=== PATIENT | female | born 1950 | race African-American/Black ===

== ENCOUNTER 2016-10-06 21:22 | Inpatient (IN) | payer MEDICARE ==
[~2016-10-06] VITALS: Ht 163.8 cm; Wt 54.4 kg
[2016-10-06 20:00] VITALS: BP 167/94
[2016-10-06] MEDS ORDERED: IPRATROPIUM/ALBUTEROL 0.5-3(2.5)MG/3ML NEB HHN PRN (21:45)
[2016-10-06] MEDS ORDERED: DEXTROSE 50% WATER 50ML SYRINGE IV PRN (21:45)
[2016-10-06] MEDS ORDERED: ONDANSETRON HCL 4MG/2ML VIAL IV PRN (21:45)
[2016-10-06] MEDS ORDERED: MAGNESIUM/ALUMINUM HYDROXIDE/SIMETHICONE 30ML UDC PO PRN (21:45)
[2016-10-06] MEDS: ATORVASTATIN CALCIUM 40MG TABLET PO SCH (21:57)
[2016-10-06] MEDS: BLOOD SUGAR DIAGNOSTIC STRIP TEST SCH (21:57)
[2016-10-06 22:00] VITALS: BP 167/94
[2016-10-06] MEDS: CLONIDINE 0.1MG TABLET PO PRN (22:38)
[2016-10-06] MEDS: INSULIN LISPRO 100 UNITS/ML SUBCUT SCH (22:50)
[2016-10-06] MEDS: INSULIN DETEMIR UD 100 UNITS/ML SYR SUBCUT SCH (22:51)
[2016-10-07] MEDS: BLOOD SUGAR DIAGNOSTIC STRIP TEST SCH ×4 (05:55→20:38)
[2016-10-07] MEDS: INSULIN LISPRO 100 UNITS/ML SUBCUT SCH ×4 (05:55→21:12)
[2016-10-07 06:10] LABS: BASOPHILS % 0.7 % (0.0-2.0); EOSINOPHILS % 1.2 % (0.0-5.0); HEMATOCRIT. 33.1 % (36.0-48.0); LYMPHOCYTES % 26.9 % (20.0-50.0); MEAN CORPUSCULAR HEMOGLOBIN 32.2 pg (28.0-32.0); MEAN CORPUSCULAR VOLUME 96.6 fL (81.0-99.0); MONOCYTES % 7.7 % (2.0-8.0); NEUTROPHILS % 63.5 % (40.0-76.0); PLATELET 356 x1000/uL (130-400); RED BLOOD CELL COUNT 3.42 mill/uL (4.2-5.4); RED CELL DISTRIBUTION WIDTH 13.8 % (11.6-14.6)
[2016-10-07 06:41] LABS: CARBON DIOXIDE 29 mEq/L (21-32); CHLORIDE 107 mEq/L (98-107)
[2016-10-07 08:00] VITALS: BP 115/68
[2016-10-07] MEDS: LOSARTAN POTASSIUM 50 MG TABLET PO SCH (08:04)
[2016-10-07] MEDS: CLOPIDOGREL 75MG TABLET PO SCH (08:04)
[2016-10-07] MEDS: ENOXAPARIN 40MG/0.4ML SYR SUBCUT SCH (08:05)
[2016-10-07] MEDS: ACETAMINOPHEN 325MG TABLET PO PRN (08:05)
[2016-10-07] MEDS: INSULIN DETEMIR UD 100 UNITS/ML SYR SUBCUT SCH ×2 (12:00→21:13)
[2016-10-07] MEDS: DOCUSATE SODIUM 100MG CAPSULE PO SCH (17:00)
[2016-10-07 20:00] VITALS: BP 127/93
[2016-10-07] MEDS: ATORVASTATIN CALCIUM 40MG TABLET PO SCH (20:37)
[2016-10-08] MEDS: ACETAMINOPHEN 325MG TABLET PO PRN (03:54)
[2016-10-08] MEDS: INSULIN LISPRO 100 UNITS/ML SUBCUT SCH ×4 (05:50→21:53)
[2016-10-08] MEDS: BLOOD SUGAR DIAGNOSTIC STRIP TEST SCH ×4 (05:50→21:32)
[2016-10-08 08:00] VITALS: BP 161/82
[2016-10-08] MEDS: DOCUSATE SODIUM 100MG CAPSULE PO SCH ×2 (08:05→16:30)
[2016-10-08] MEDS: CLOPIDOGREL 75MG TABLET PO SCH (08:05)
[2016-10-08] MEDS: LOSARTAN POTASSIUM 50 MG TABLET PO SCH (08:05)
[2016-10-08] MEDS: ENOXAPARIN 40MG/0.4ML SYR SUBCUT SCH (08:05)
[2016-10-08] MEDS: CLONIDINE 0.1MG TABLET PO PRN (11:28)
[2016-10-08] MEDS: INSULIN DETEMIR UD 100 UNITS/ML SYR SUBCUT SCH ×2 (11:35→21:54)
[2016-10-08 13:30] VITALS: BP 133/79
[2016-10-08 20:48] VITALS: BP 116/66
[2016-10-08] MEDS: ATORVASTATIN CALCIUM 40MG TABLET PO SCH (21:46)
[2016-10-09] MEDS: BLOOD SUGAR DIAGNOSTIC STRIP TEST SCH ×4 (06:16→21:00)
[2016-10-09] MEDS: INSULIN LISPRO 100 UNITS/ML SUBCUT SCH ×4 (06:16→21:00)
[2016-10-09 08:00] VITALS: BP 127/69
[2016-10-09] MEDS: CLOPIDOGREL 75MG TABLET PO SCH (09:09)
[2016-10-09] MEDS: LOSARTAN POTASSIUM 50 MG TABLET PO SCH (09:10)
[2016-10-09] MEDS: ENOXAPARIN 40MG/0.4ML SYR SUBCUT SCH (09:10)
[2016-10-09] MEDS: DOCUSATE SODIUM 100MG CAPSULE PO SCH ×2 (09:10→16:16)
[2016-10-09] MEDS: INSULIN DETEMIR UD 100 UNITS/ML SYR SUBCUT SCH ×2 (10:54→22:46)
[2016-10-09 20:00] VITALS: BP 137/75
[2016-10-09] MEDS: ATORVASTATIN CALCIUM 40MG TABLET PO SCH (22:38)
[2016-10-09] MEDS: ACETAMINOPHEN 325MG TABLET PO PRN (22:39)
[2016-10-10] VITALS: BP 128/72
[2016-10-10] MEDS: ACETAMINOPHEN 325MG TABLET PO PRN (06:05)
[2016-10-10] MEDS: BLOOD SUGAR DIAGNOSTIC STRIP TEST SCH ×4 (07:20→21:13)
[2016-10-10 08:00] VITALS: BP 127/83
[2016-10-10] MEDS: ENOXAPARIN 40MG/0.4ML SYR SUBCUT SCH (08:16)
[2016-10-10] MEDS: DOCUSATE SODIUM 100MG CAPSULE PO SCH ×2 (08:16→16:20)
[2016-10-10] MEDS: LOSARTAN POTASSIUM 50 MG TABLET PO SCH (08:16)
[2016-10-10] MEDS: CLOPIDOGREL 75MG TABLET PO SCH (08:16)
[2016-10-10] MEDS: INSULIN LISPRO 100 UNITS/ML SUBCUT SCH ×4 (08:19→21:16)
[2016-10-10] MEDS: INSULIN DETEMIR UD 100 UNITS/ML SYR SUBCUT SCH ×2 (10:19→21:16)
[2016-10-10 20:00] VITALS: BP 148/83
[2016-10-10] MEDS: ATORVASTATIN CALCIUM 40MG TABLET PO SCH (21:13)
[2016-10-11] MEDS: BLOOD SUGAR DIAGNOSTIC STRIP TEST SCH ×4 (06:21→21:36)
[2016-10-11] MEDS: INSULIN LISPRO 100 UNITS/ML SUBCUT SCH ×4 (07:01→21:39)
[2016-10-11 08:00] VITALS: BP 135/87
[2016-10-11] MEDS: LOSARTAN POTASSIUM 50 MG TABLET PO SCH (09:19)
[2016-10-11] MEDS: ENOXAPARIN 40MG/0.4ML SYR SUBCUT SCH (09:19)
[2016-10-11] MEDS: CLOPIDOGREL 75MG TABLET PO SCH (09:19)
[2016-10-11] MEDS: DOCUSATE SODIUM 100MG CAPSULE PO SCH ×2 (09:19→16:49)
[2016-10-11] MEDS: INSULIN DETEMIR UD 100 UNITS/ML SYR SUBCUT SCH ×2 (11:12→21:39)
[2016-10-11 20:00] VITALS: BP 134/84
[2016-10-11] MEDS: ATORVASTATIN CALCIUM 40MG TABLET PO SCH (21:37)
[2016-10-12] MEDS: BLOOD SUGAR DIAGNOSTIC STRIP TEST SCH ×4 (06:27→21:01)
[2016-10-12] MEDS: INSULIN LISPRO 100 UNITS/ML SUBCUT SCH ×4 (06:48→21:33)
[2016-10-12 08:00] VITALS: BP 135/82
[2016-10-12] MEDS: ENOXAPARIN 40MG/0.4ML SYR SUBCUT SCH (09:06)
[2016-10-12] MEDS: LOSARTAN POTASSIUM 50 MG TABLET PO SCH (09:06)
[2016-10-12] MEDS: DOCUSATE SODIUM 100MG CAPSULE PO SCH ×2 (09:06→17:38)
[2016-10-12] MEDS: CLOPIDOGREL 75MG TABLET PO SCH (09:06)
[2016-10-12] MEDS: INSULIN DETEMIR UD 100 UNITS/ML SYR SUBCUT SCH ×2 (10:59→21:32)
[2016-10-12] MEDS: ACETAMINOPHEN 325MG TABLET PO PRN (18:50)
[2016-10-12 20:00] VITALS: BP 116/66
[2016-10-12] MEDS: ATORVASTATIN CALCIUM 40MG TABLET PO SCH (21:01)
[2016-10-13] MEDS: INSULIN LISPRO 100 UNITS/ML SUBCUT SCH ×4 (06:26→21:25)
[2016-10-13] MEDS: BLOOD SUGAR DIAGNOSTIC STRIP TEST SCH ×4 (06:26→21:22)
[2016-10-13 08:00] VITALS: BP 137/73
[2016-10-13] MEDS: LOSARTAN POTASSIUM 50 MG TABLET PO SCH (09:15)
[2016-10-13] MEDS: DOCUSATE SODIUM 100MG CAPSULE PO SCH ×2 (09:15→17:10)
[2016-10-13] MEDS: ENOXAPARIN 40MG/0.4ML SYR SUBCUT SCH (09:16)
[2016-10-13] MEDS: CLOPIDOGREL 75MG TABLET PO SCH (09:16)
[2016-10-13] MEDS: INSULIN DETEMIR UD 100 UNITS/ML SYR SUBCUT SCH ×2 (09:22→21:25)
[2016-10-13 20:00] VITALS: BP 127/72
[2016-10-13] MEDS: ATORVASTATIN CALCIUM 40MG TABLET PO SCH (21:23)
[2016-10-14] MEDS: BLOOD SUGAR DIAGNOSTIC STRIP TEST SCH ×4 (06:22→21:27)
[2016-10-14] MEDS: INSULIN LISPRO 100 UNITS/ML SUBCUT SCH ×4 (07:15→21:28)
[2016-10-14 08:00] VITALS: BP_SYST 102; BP_SYST 150; BP_DIAS 60; BP_DIAS 91
[2016-10-14] MEDS: LOSARTAN POTASSIUM 50 MG TABLET PO SCH (08:28)
[2016-10-14] MEDS: DOCUSATE SODIUM 100MG CAPSULE PO SCH ×2 (08:28→17:03)
[2016-10-14] MEDS: CLOPIDOGREL 75MG TABLET PO SCH (08:28)
[2016-10-14] MEDS: ENOXAPARIN 40MG/0.4ML SYR SUBCUT SCH (08:28)
[2016-10-14] MEDS: INSULIN DETEMIR UD 100 UNITS/ML SYR SUBCUT SCH ×2 (10:12→21:29)
[2016-10-14 20:00] VITALS: BP 136/80
[2016-10-14] MEDS: ATORVASTATIN CALCIUM 40MG TABLET PO SCH (21:26)
[2016-10-15] MEDS: BLOOD SUGAR DIAGNOSTIC STRIP TEST SCH ×4 (06:24→21:00)
[2016-10-15] MEDS: INSULIN LISPRO 100 UNITS/ML SUBCUT SCH ×4 (07:00→22:33)
[2016-10-15 08:00] VITALS: BP 133/72
[2016-10-15] MEDS: LOSARTAN POTASSIUM 50 MG TABLET PO SCH (09:15)
[2016-10-15] MEDS: CLOPIDOGREL 75MG TABLET PO SCH (09:15)
[2016-10-15] MEDS: DOCUSATE SODIUM 100MG CAPSULE PO SCH ×2 (09:15→16:17)
[2016-10-15] MEDS: ENOXAPARIN 40MG/0.4ML SYR SUBCUT SCH (09:16)
[2016-10-15] MEDS: INSULIN DETEMIR UD 100 UNITS/ML SYR SUBCUT SCH ×2 (09:20→22:34)
[2016-10-15] MEDS: ACETAMINOPHEN 325MG TABLET PO PRN (16:30)
[2016-10-15 20:00] VITALS: BP 121/79
[2016-10-15] MEDS: ATORVASTATIN CALCIUM 40MG TABLET PO SCH (22:27)
[2016-10-16] MEDS: BLOOD SUGAR DIAGNOSTIC STRIP TEST SCH ×4 (06:06→21:53)
[2016-10-16] MEDS: INSULIN LISPRO 100 UNITS/ML SUBCUT SCH ×4 (06:11→22:01)
[2016-10-16 07:05] LABS: BASOPHILS % 0.6 % (0.0-2.0); EOSINOPHILS % 1.1 % (0.0-5.0); HEMATOCRIT 31.3 % (36.0-48.0); HEMATOCRIT. 31.3 % (36.0-48.0); HEMOGLOBIN 10.4 g/dL (12.0-16.0); HEMOGLOBIN. 10.4 g/dL (12.0-16.0); LYMPHOCYTES % 10.9 % (20.0-50.0); MEAN CORPUSCULAR HEMOGLOBIN 32.4 pg (28.0-32.0); MEAN PLATELET VOLUME 7.9 fl (7.4-10.4); MONOCYTES % 7.7 % (2.0-8.0); NEUTROPHILS % 79.7 % (40.0-76.0); PLATELET 406 x1000/uL (130-400); RED BLOOD CELL COUNT 3.23 mill/uL (4.2-5.4); RED CELL DISTRIBUTION WIDTH 13.8 % (11.6-14.6)
[2016-10-16 07:06] LABS: CARBON DIOXIDE 29 mEq/L (21-32); CHLORIDE 104 mEq/L (98-107)
[2016-10-16 08:00] VITALS: BP 138/72
[2016-10-16] MEDS: LOSARTAN POTASSIUM 50 MG TABLET PO SCH (08:20)
[2016-10-16] MEDS: CLOPIDOGREL 75MG TABLET PO SCH (08:20)
[2016-10-16] MEDS: DOCUSATE SODIUM 100MG CAPSULE PO SCH ×2 (08:20→16:20)
[2016-10-16] MEDS: ENOXAPARIN 40MG/0.4ML SYR SUBCUT SCH (08:20)
[2016-10-16] MEDS: INSULIN DETEMIR UD 100 UNITS/ML SYR SUBCUT SCH ×2 (10:10→22:03)
[2016-10-16 19:00] VITALS: BP 125/76
[2016-10-16] MEDS: ATORVASTATIN CALCIUM 40MG TABLET PO SCH (21:53)
[2016-10-17] MEDS: INSULIN LISPRO 100 UNITS/ML SUBCUT SCH ×4 (07:04→22:46)
[2016-10-17] MEDS: BLOOD SUGAR DIAGNOSTIC STRIP TEST SCH ×4 (07:05→21:00)
[2016-10-17 08:00] VITALS: BP 125/81
[2016-10-17] MEDS: LOSARTAN POTASSIUM 50 MG TABLET PO SCH (11:09)
[2016-10-17] MEDS: CLOPIDOGREL 75MG TABLET PO SCH (11:09)
[2016-10-17] MEDS: DOCUSATE SODIUM 100MG CAPSULE PO SCH ×2 (11:09→17:57)
[2016-10-17] MEDS: ENOXAPARIN 40MG/0.4ML SYR SUBCUT SCH (11:10)
[2016-10-17] MEDS: INSULIN DETEMIR UD 100 UNITS/ML SYR SUBCUT SCH ×2 (11:11→22:47)
[2016-10-17 20:00] VITALS: BP 141/82
[2016-10-17] MEDS: ATORVASTATIN CALCIUM 40MG TABLET PO SCH (22:41)
[2016-10-18] MEDS: BLOOD SUGAR DIAGNOSTIC STRIP TEST SCH ×4 (06:12→21:11)
[2016-10-18] MEDS: INSULIN LISPRO 100 UNITS/ML SUBCUT SCH ×4 (06:17→21:11)
[2016-10-18 08:00] VITALS: BP 112/77
[2016-10-18] MEDS: DOCUSATE SODIUM 100MG CAPSULE PO SCH ×2 (08:23→17:04)
[2016-10-18] MEDS: LOSARTAN POTASSIUM 50 MG TABLET PO SCH (08:23)
[2016-10-18] MEDS: CLOPIDOGREL 75MG TABLET PO SCH (08:23)
[2016-10-18] MEDS: ENOXAPARIN 40MG/0.4ML SYR SUBCUT SCH (08:24)
[2016-10-18] MEDS: INSULIN DETEMIR UD 100 UNITS/ML SYR SUBCUT SCH ×2 (11:20→21:11)
[2016-10-18 20:00] VITALS: BP 153/84
[2016-10-18] MEDS ORDERED: ZOLPIDEM TARTRATE 5MG TABLET PO PRN (20:45)
[2016-10-18] MEDS: ATORVASTATIN CALCIUM 40MG TABLET PO SCH (21:05)
[2016-10-19] MEDS: BLOOD SUGAR DIAGNOSTIC STRIP TEST SCH ×4 (06:22→21:39)
[2016-10-19] MEDS: INSULIN LISPRO 100 UNITS/ML SUBCUT SCH ×4 (06:22→21:38)
[2016-10-19 08:00] VITALS: BP 153/89
[2016-10-19] MEDS: CLOPIDOGREL 75MG TABLET PO SCH (09:52)
[2016-10-19] MEDS: DOCUSATE SODIUM 100MG CAPSULE PO SCH ×2 (09:52→17:29)
[2016-10-19] MEDS: FLUOXETINE HCL 10 MG CAPSULE PO SCH (09:53)
[2016-10-19] MEDS: LOSARTAN POTASSIUM 50 MG TABLET PO SCH (09:54)
[2016-10-19] MEDS: ENOXAPARIN 40MG/0.4ML SYR SUBCUT SCH (09:54)
[2016-10-19] MEDS: INSULIN DETEMIR UD 100 UNITS/ML SYR SUBCUT SCH ×2 (09:59→21:39)
[2016-10-19 20:00] VITALS: BP 127/75
[2016-10-19] MEDS: ATORVASTATIN CALCIUM 40MG TABLET PO SCH (21:33)
[2016-10-20] MEDS: INSULIN LISPRO 100 UNITS/ML SUBCUT SCH ×4 (06:19→21:00)
[2016-10-20] MEDS: BLOOD SUGAR DIAGNOSTIC STRIP TEST SCH ×4 (06:19→21:42)
[2016-10-20 07:46] VITALS: BP 124/77
[2016-10-20] MEDS: ENOXAPARIN 40MG/0.4ML SYR SUBCUT SCH (08:20)
[2016-10-20] MEDS: CLOPIDOGREL 75MG TABLET PO SCH (08:20)
[2016-10-20] MEDS: FLUOXETINE HCL 10 MG CAPSULE PO SCH (08:20)
[2016-10-20] MEDS: DOCUSATE SODIUM 100MG CAPSULE PO SCH ×2 (08:20→16:30)
[2016-10-20] MEDS: LOSARTAN POTASSIUM 50 MG TABLET PO SCH (08:21)
[2016-10-20] MEDS: INSULIN DETEMIR UD 100 UNITS/ML SYR SUBCUT SCH ×2 (11:02→22:00)
[2016-10-20 20:00] VITALS: BP 146/82
[2016-10-20] MEDS: ATORVASTATIN CALCIUM 40MG TABLET PO SCH (21:42)
[2016-10-21] MEDS: BLOOD SUGAR DIAGNOSTIC STRIP TEST SCH ×4 (06:10→20:44)
[2016-10-21] MEDS: INSULIN LISPRO 100 UNITS/ML SUBCUT SCH ×4 (06:10→20:44)
[2016-10-21 08:00] VITALS: BP 120/82
[2016-10-21] MEDS: DOCUSATE SODIUM 100MG CAPSULE PO SCH ×2 (09:10→17:34)
[2016-10-21] MEDS: CLOPIDOGREL 75MG TABLET PO SCH (09:10)
[2016-10-21] MEDS: FLUOXETINE HCL 10 MG CAPSULE PO SCH (09:11)
[2016-10-21] MEDS: LOSARTAN POTASSIUM 50 MG TABLET PO SCH (09:11)
[2016-10-21] MEDS: ENOXAPARIN 40MG/0.4ML SYR SUBCUT SCH (09:12)
[2016-10-21] MEDS: INSULIN DETEMIR UD 100 UNITS/ML SYR SUBCUT SCH ×2 (10:59→21:25)
[2016-10-21 20:16] VITALS: BP 150/82
[2016-10-21] MEDS: ATORVASTATIN CALCIUM 40MG TABLET PO SCH (20:44)
[2016-10-22] MEDS: BLOOD SUGAR DIAGNOSTIC STRIP TEST SCH ×4 (06:02→21:55)
[2016-10-22] MEDS: INSULIN LISPRO 100 UNITS/ML SUBCUT SCH ×4 (06:02→21:00)
[2016-10-22 08:00] VITALS: BP 120/83
[2016-10-22] MEDS: DOCUSATE SODIUM 100MG CAPSULE PO SCH ×2 (08:31→17:13)
[2016-10-22] MEDS: ENOXAPARIN 40MG/0.4ML SYR SUBCUT SCH (08:32)
[2016-10-22] MEDS: FLUOXETINE HCL 10 MG CAPSULE PO SCH (08:32)
[2016-10-22] MEDS: CLOPIDOGREL 75MG TABLET PO SCH (08:32)
[2016-10-22] MEDS: LOSARTAN POTASSIUM 50 MG TABLET PO SCH (08:32)
[2016-10-22] MEDS: INSULIN DETEMIR UD 100 UNITS/ML SYR SUBCUT SCH ×2 (11:21→23:16)
[2016-10-22 20:00] VITALS: BP 132/87
[2016-10-22] MEDS: ATORVASTATIN CALCIUM 40MG TABLET PO SCH (21:53)
[2016-10-23] MEDS: BLOOD SUGAR DIAGNOSTIC STRIP TEST SCH ×4 (05:57→21:23)
[2016-10-23] MEDS: INSULIN LISPRO 100 UNITS/ML SUBCUT SCH ×4 (06:00→21:28)
[2016-10-23 08:00] VITALS: BP 118/74
[2016-10-23] MEDS: DOCUSATE SODIUM 100MG CAPSULE PO SCH ×2 (08:42→16:41)
[2016-10-23] MEDS: ENOXAPARIN 40MG/0.4ML SYR SUBCUT SCH (08:42)
[2016-10-23] MEDS: FLUOXETINE HCL 10 MG CAPSULE PO SCH (08:42)
[2016-10-23] MEDS: LOSARTAN POTASSIUM 50 MG TABLET PO SCH (08:43)
[2016-10-23] MEDS: CLOPIDOGREL 75MG TABLET PO SCH (08:44)
[2016-10-23] MEDS: ACETAMINOPHEN 325MG TABLET PO PRN (10:57)
[2016-10-23] MEDS: INSULIN DETEMIR UD 100 UNITS/ML SYR SUBCUT SCH ×2 (11:02→21:30)
[2016-10-23 20:00] VITALS: BP 119/79
[2016-10-23] MEDS: ZOLPIDEM TARTRATE 5MG TABLET PO SCH (21:23)
[2016-10-23] MEDS: ATORVASTATIN CALCIUM 40MG TABLET PO SCH (21:23)
[2016-10-24 06:10] LABS: BASOPHILS % 0.6 % (0.0-2.0); HEMATOCRIT. 33.5 % (36.0-48.0); HEMOGLOBIN. 11.1 g/dL (12.0-16.0); LYMPHOCYTES % 15.7 % (20.0-50.0); MEAN CORPUSCULAR HEMOGLOBIN 31.7 pg (28.0-32.0); MEAN CORPUSCULAR VOLUME 95.8 fL (81.0-99.0); MEAN PLATELET VOLUME 7.5 fl (7.4-10.4); MONOCYTES % 7.9 % (2.0-8.0); NEUTROPHILS % 74.8 % (40.0-76.0); PLATELET 506 x1000/uL (130-400); RED CELL DISTRIBUTION WIDTH 13.9 % (11.6-14.6)
[2016-10-24 06:48] LABS: CARBON DIOXIDE 28 mEq/L (21-32); CHLORIDE 106 mEq/L (98-107)
[2016-10-24] MEDS: BLOOD SUGAR DIAGNOSTIC STRIP TEST SCH ×4 (06:56→21:43)
[2016-10-24 08:00] VITALS: BP 115/77
[2016-10-24] MEDS: FLUOXETINE HCL 10 MG CAPSULE PO SCH (08:18)
[2016-10-24] MEDS: LOSARTAN POTASSIUM 50 MG TABLET PO SCH (08:18)
[2016-10-24] MEDS: CLOPIDOGREL 75MG TABLET PO SCH (08:18)
[2016-10-24] MEDS: DOCUSATE SODIUM 100MG CAPSULE PO SCH ×2 (08:18→16:53)
[2016-10-24] MEDS: ENOXAPARIN 40MG/0.4ML SYR SUBCUT SCH (08:18)
[2016-10-24] MEDS: INSULIN LISPRO 100 UNITS/ML SUBCUT SCH ×4 (08:22→21:49)
[2016-10-24] MEDS: INSULIN DETEMIR UD 100 UNITS/ML SYR SUBCUT SCH ×2 (10:47→21:50)
[2016-10-24] MEDS ORDERED: LACTULOSE 20G/30ML UDC PO PRN (16:00)
[2016-10-24 20:00] VITALS: BP 115/75
[2016-10-24] MEDS: ZOLPIDEM TARTRATE 5MG TABLET PO SCH (21:43)
[2016-10-24] MEDS: ATORVASTATIN CALCIUM 40MG TABLET PO SCH (21:43)
[2016-10-25] MEDS: BLOOD SUGAR DIAGNOSTIC STRIP TEST SCH ×4 (05:47→21:17)
[2016-10-25] MEDS: INSULIN LISPRO 100 UNITS/ML SUBCUT SCH ×4 (06:01→21:16)
[2016-10-25 08:00] VITALS: BP 128/68
[2016-10-25] MEDS: CLOPIDOGREL 75MG TABLET PO SCH (09:07)
[2016-10-25] MEDS: LOSARTAN POTASSIUM 50 MG TABLET PO SCH (09:07)
[2016-10-25] MEDS: FLUOXETINE HCL 10 MG CAPSULE PO SCH (09:07)
[2016-10-25] MEDS: DOCUSATE SODIUM 100MG CAPSULE PO SCH ×2 (09:07→17:21)
[2016-10-25] MEDS: ENOXAPARIN 40MG/0.4ML SYR SUBCUT SCH (09:07)
[2016-10-25] MEDS: INSULIN DETEMIR UD 100 UNITS/ML SYR SUBCUT SCH ×2 (11:08→21:17)
[2016-10-25 13:12] LABS: CLARITY URINE TURBID (CLEAR); COLOR URINE YELLOW (YELLOW); GLUCOSE URINE NEGATIVE (NEGATIVE); KETONES URINE NEGATIVE (NEGATIVE); LEUKOCYTE ESTERASE URINE 3+ (NEGATIVE); NITRITE URINE NEGATIVE (NEGATIVE); OCCULT BLOOD URINE 3+ (NEGATIVE); PH URINE 5.5 (4.5-8.0); PROTEIN URINE 2+ (NEGATIVE); SPECIFIC GRAVITY URINE 1.015 (1.005-1.030)
[2016-10-25 20:00] VITALS: BP 127/83
[2016-10-25] MEDS: ZOLPIDEM TARTRATE 5MG TABLET PO SCH (21:17)
[2016-10-25] MEDS: ATORVASTATIN CALCIUM 40MG TABLET PO SCH (21:17)
[2016-10-26] MEDS: BLOOD SUGAR DIAGNOSTIC STRIP TEST SCH ×4 (06:15→21:43)
[2016-10-26] MEDS: INSULIN LISPRO 100 UNITS/ML SUBCUT SCH ×4 (07:18→21:43)
[2016-10-26 08:07] VITALS: BP 130/75
[2016-10-26] MEDS: CLOPIDOGREL 75MG TABLET PO SCH (08:43)
[2016-10-26] MEDS: DOCUSATE SODIUM 100MG CAPSULE PO SCH ×2 (08:43→17:40)
[2016-10-26] MEDS: FLUOXETINE HCL 20MG CAPSULE PO SCH (08:43)
[2016-10-26] MEDS: LOSARTAN POTASSIUM 50 MG TABLET PO SCH (08:44)
[2016-10-26] MEDS: ENOXAPARIN 40MG/0.4ML SYR SUBCUT SCH (08:44)
[2016-10-26] MEDS: INSULIN DETEMIR UD 100 UNITS/ML SYR SUBCUT SCH ×2 (10:21→21:42)
[2016-10-26 20:00] VITALS: BP 149/77
[2016-10-26] MEDS: ATORVASTATIN CALCIUM 40MG TABLET PO SCH (21:36)
[2016-10-26] MEDS: ZOLPIDEM TARTRATE 5MG TABLET PO SCH (21:36)
[2016-10-27] MEDS: BLOOD SUGAR DIAGNOSTIC STRIP TEST SCH ×4 (05:55→20:49)
[2016-10-27] MEDS: INSULIN LISPRO 100 UNITS/ML SUBCUT SCH ×4 (05:55→21:12)
[2016-10-27 08:00] VITALS: BP 141/86
[2016-10-27] MEDS: DOCUSATE SODIUM 100MG CAPSULE PO SCH ×2 (08:57→16:50)
[2016-10-27] MEDS: CLOPIDOGREL 75MG TABLET PO SCH (08:58)
[2016-10-27] MEDS: FLUOXETINE HCL 20MG CAPSULE PO SCH (08:58)
[2016-10-27] MEDS: LOSARTAN POTASSIUM 50 MG TABLET PO SCH (08:58)
[2016-10-27] MEDS: ENOXAPARIN 40MG/0.4ML SYR SUBCUT SCH (08:59)
[2016-10-27] MEDS: INSULIN DETEMIR UD 100 UNITS/ML SYR SUBCUT SCH ×2 (11:38→21:12)
[2016-10-27 20:00] VITALS: BP 137/86
[2016-10-27 20:17] VITALS: BP 117/50
[2016-10-27] MEDS: ATORVASTATIN CALCIUM 40MG TABLET PO SCH (21:10)
[2016-10-27] MEDS: ZOLPIDEM TARTRATE 5MG TABLET PO SCH (21:10)
[2016-10-28] MEDS: BLOOD SUGAR DIAGNOSTIC STRIP TEST SCH ×2 (06:25→11:42)
[2016-10-28] MEDS: INSULIN LISPRO 100 UNITS/ML SUBCUT SCH ×2 (07:01→11:44)
[2016-10-28 08:00] VITALS: BP 127/77
[2016-10-28] MEDS: CLOPIDOGREL 75MG TABLET PO SCH (08:58)
[2016-10-28] MEDS: DOCUSATE SODIUM 100MG CAPSULE PO SCH (08:58)
[2016-10-28] MEDS: FLUOXETINE HCL 20MG CAPSULE PO SCH (08:59)
[2016-10-28] MEDS: LOSARTAN POTASSIUM 50 MG TABLET PO SCH (08:59)
[2016-10-28] MEDS: ENOXAPARIN 40MG/0.4ML SYR SUBCUT SCH (08:59)
[2016-10-28] MEDS: INSULIN DETEMIR UD 100 UNITS/ML SYR SUBCUT SCH (10:35)
[2016-10-28 11:01] VITALS: BP 127/77
== END 2016-10-28 15:10 | disposition home health service (06) | DRG 65 ==
PROVIDERS: ADMIT Psychiatry & Neurology Neurology; ATTEND Internal Medicine
DX: I63.9 Cerebral infarction, unspecified (principal); G81.91 Hemiplegia, unspecified affecting right dominant side; E11.9 Type 2 diabetes mellitus without complications; E78.5 Hyperlipidemia, unspecified; F32.9 Major depressive disorder, single episode, unspecified; G47.00 Insomnia, unspecified; F06.8 Other specified mental disorders due to known physiological condition; F06.31 Mood disorder due to known physiological condition with depressive features; F41.9 Anxiety disorder, unspecified; I10 Essential (primary) hypertension; J44.9 Chronic obstructive pulmonary disease, unspecified; M19.90 Unspecified osteoarthritis, unspecified site; R32 Unspecified urinary incontinence; Z82.49 Family history of ischemic heart disease and other diseases of the circulatory system; Z83.3 Family history of diabetes mellitus; Z90.710 Acquired absence of both cervix and uterus
CPT/HCPCS: 36415; 80048; 81001; 82962; 85025; 85027; 87086; 92523; 93970; 97110; 97112; 97116; 97163; 97167; 97530; 97532; 97535; J1650; J1815

== ENCOUNTER 2017-02-01 16:12 | Inpatient (IN) | payer MEDICARE ==
[~2017-02-01] VITALS: Ht 162.6 cm; Wt 54.4 kg
[2017-02-01] MEDS ORDERED: SODIUM CHLORIDE 0.9% 1,000 ML IV ONE (17:31)
[2017-02-01 18:27] LABS: BASOPHILS % 0.8 % (0.0-2.0); EOSINOPHILS % 0.2 % (0.0-5.0); HEMOGLOBIN. 11.5 g/dL (12.0-16.0); LYMPHOCYTES % 12.2 % (20.0-50.0); MEAN CORPUSCULAR HEMOGLOBIN 32.6 pg (28.0-32.0); MEAN CORPUSCULAR VOLUME 99.2 fL (81.0-99.0); MEAN PLATELET VOLUME 8.8 fl (7.4-10.4); MONOCYTES % 8.1 % (2.0-8.0); NEUTROPHILS % 78.7 % (40.0-76.0); PLATELET 366 x1000/uL (130-400); RED BLOOD CELL COUNT 3.53 mill/uL (4.2-5.4); RED CELL DISTRIBUTION WIDTH 15.7 % (11.6-14.6)
[2017-02-01 18:35] LABS: PROTHROMBIN TIME 10.1 sec (9.4-11.6)
[2017-02-01 18:35] LABS: BG BASE EXCESS -0.7 mmol/L (-2.0-2.0); BG CARBOXYHEMOGLOBIN 5.4 % (0.5-1.5); BG DEOXYHEMOGLOBIN 5.4 % (0.0-5.0); BG FRACTION INSPIRED OXYGEN 21; BG HCO3 ACT 24.4 mmol/L (22.0-26.0); BG METHEMOGLOBIN 0.4 % (0.0-1.5); BG OXYGEN SATURATION 94.3 % (92.0-98.5); BG OXYHEMOGLOBIN 88.8 % (94.0-97.0); BG PCO2 42.1 mmHg (35.0-45.0); BG PH 7.381 (7.350-7.450); BG PO2 72.2 mmHg (75.0-100.0); BG SAMPLE SITE LEFT BRACHIAL; BG TOTAL HEMOGLOBIN 12.6 g/dL (12.0-18.0); BG VENT MODE ROOM AIR
[2017-02-01 18:36] LABS: CHLORIDE 93 mEq/L (98-107)
[2017-02-01 18:50] LABS: BETA HYDROXYBUTYRATE 0.1 mMol/L (0.0-0.3); CARBON DIOXIDE 25 mEq/L (21-32); TROPONIN I < 0.02 ng/mL (0.00-0.04)
[2017-02-01 18:55] LABS: CLARITY URINE CLOUDY (CLEAR); COLOR URINE YELLOW (YELLOW); GLUCOSE URINE 3+ (NEGATIVE); KETONES URINE 1+ (NEGATIVE); LEUKOCYTE ESTERASE URINE 2+ (NEGATIVE); NITRITE URINE NEGATIVE (NEGATIVE); OCCULT BLOOD URINE TRACE (NEGATIVE); PH URINE 5.5 (4.5-8.0); PROTEIN URINE NEGATIVE (NEGATIVE); SPECIFIC GRAVITY URINE 1.027 (1.005-1.030); UROBILINOGEN URINE 0.2 E.U./dL (0.2-1.0)
[2017-02-01] MEDS ORDERED: SODIUM CHLORIDE 0.9% 1,000 ML IV NR ×2 (19:00→19:59)
[2017-02-01] MEDS ORDERED: CEFTRIAXONE 1 G PREMIX 50 ML IV SCH (21:00)
[2017-02-01] MEDS ORDERED: MAGNESIUM/ALUMINUM HYDROXIDE/SIMETHICONE 30ML UDC PO PRN (23:30)
[2017-02-01] MEDS ORDERED: GUAIFENESIN 200MG/10ML SUGAR FREE UDC PO PRN (23:30)
[2017-02-01] MEDS ORDERED: DIPHENHYDRAMINE 50MG/ML VIAL IV PRN (23:30)
[2017-02-01] MEDS ORDERED: TRAMADOL 50MG TABLET PO PRN (23:30)
[2017-02-01] MEDS ORDERED: DEXTROSE 50% WATER 50ML SYRINGE IV PRN (23:30)
[2017-02-01] MEDS ORDERED: ONDANSETRON HCL 4MG/2ML VIAL IV PRN (23:30)
[2017-02-01] MEDS ORDERED: CLONIDINE 0.1MG TABLET PO PRN (23:30)
[2017-02-01] MEDS ORDERED: IPRATROPIUM/ALBUTEROL 0.5-3(2.5)MG/3ML NEB INH PRN (23:30)
[2017-02-01] MEDS ORDERED: MORPHINE SULFATE 2 MG/ML CPJ (NOT FOR IM USE) IV PRN (23:30)
[2017-02-01] MEDS ORDERED: NITROGLYCERIN 0.4MG TABLET SL SL PRN (23:30)
[2017-02-01] MEDS ORDERED: LORAZEPAM 2MG/ML CPJ IV PRN (23:30)
[2017-02-02] VITALS (7 sets, daily range): BP systolic 104–173; BP diastolic 6–85
[2017-02-02] MEDS ORDERED: ZOLPIDEM TARTRATE 5MG TABLET PO PRN (01:12)
[2017-02-02] MEDS ORDERED: NA PHOS,M-B/NA PHOS,DI-BA ENEMA 118ML PR PRN (01:12)
[2017-02-02] MEDS ORDERED: LEVOFLOXACIN 500MG PREMIX 100 ML IV SCH (03:00)
[2017-02-02] MEDS ORDERED: INSULIN DETEMIR UD 100 UNITS/ML SYR SUBCUT SCH (03:00)
[2017-02-02] MEDS: BLOOD SUGAR DIAGNOSTIC STRIP TEST SCH ×4 (06:29→20:59)
[2017-02-02] MEDS: INSULIN LISPRO 100 UNITS/ML SUBCUT SCH ×7 (06:36→21:21)
[2017-02-02 07:21] LABS: CREATINE KINASE 27 IU/L (26-192); CREATINE KINASE MB FRACTION 0.9 ng/mL (0.5-3.6); TROPONIN I < 0.02 ng/mL (0.00-0.04)
[2017-02-02 08:08] LABS: FOLIC ACID (FOLATE) SERUM 13.9 ng/mL (>5.38)
[2017-02-02 08:31] LABS: *AMPHETAMINES SCREEN URINE NEGATIVE (NEGATIVE); *BARBITURATES SCREEN URINE NEGATIVE (NEGATIVE); *BENZODIAZEPINES SCREEN URINE NEGATIVE (NEGATIVE); *COCAINE SCREEN URINE NEGATIVE (NEGATIVE); CANNABINOID URINE SCREEN NEGATIVE (NEGATIVE); METHADONE URINE SCREEN NEGATIVE (NEGATIVE); OPIATES URINE SCREEN NEGATIVE (NEGATIVE); PHENCYCLIDINE URINE SCREEN NEGATIVE (NEGATIVE)
[2017-02-02] MEDS: LISINOPRIL 20MG TABLET PO SCH ×2 (09:26→21:00)
[2017-02-02] MEDS: FAMOTIDINE 20MG/2ML VIAL IV SCH ×2 (09:26→21:15)
[2017-02-02] MEDS: ENOXAPARIN 40MG/0.4ML SYR SUBCUT SCH (09:27)
[2017-02-02] MEDS: METOPROLOL TARTRATE 25MG TABLET PO SCH ×2 (09:27→21:00)
[2017-02-02] MEDS: ASPIRIN 325MG EC TABLET PO SCH (09:27)
[2017-02-02 18:06] LABS: CARBON DIOXIDE 27 mEq/L (21-32); CHLORIDE 105 mEq/L (98-107); CREATINE KINASE 29 IU/L (26-192); CREATINE KINASE MB FRACTION 0.8 ng/mL (0.5-3.6); PHOSPHORUS 2.2 mg/dL (2.5-4.9); TROPONIN I < 0.02 ng/mL (0.00-0.04)
[2017-02-02] MEDS: INSULIN DETEMIR UD 100 UNITS/ML SYR SUBCUT SCH (22:47)
[2017-02-03] VITALS: BP 123/57
[2017-02-03] MEDS: LEVOFLOXACIN 500MG PREMIX 100 ML IV SCH (03:37)
[2017-02-03 04:00] VITALS: BP 114/61
[2017-02-03] MEDS: BLOOD SUGAR DIAGNOSTIC STRIP TEST SCH ×4 (05:59→21:45)
[2017-02-03] MEDS: INSULIN LISPRO 100 UNITS/ML SUBCUT SCH ×7 (06:00→22:33)
[2017-02-03 08:16] VITALS: BP 122/66
[2017-02-03] MEDS: DOCUSATE SODIUM 100MG CAPSULE PO PRN (10:06)
[2017-02-03] MEDS: LISINOPRIL 20MG TABLET PO SCH ×2 (10:06→22:31)
[2017-02-03] MEDS: FAMOTIDINE 20MG/2ML VIAL IV SCH ×2 (10:06→22:31)
[2017-02-03] MEDS: ENOXAPARIN 40MG/0.4ML SYR SUBCUT SCH (10:06)
[2017-02-03] MEDS: ASPIRIN 325MG EC TABLET PO SCH (10:06)
[2017-02-03] MEDS: METOPROLOL TARTRATE 25MG TABLET PO SCH ×2 (10:07→22:30)
[2017-02-03 12:20] VITALS: BP 123/74
[2017-02-03 16:06] VITALS: BP 117/63
[2017-02-03 20:00] VITALS: BP 121/60
[2017-02-03] MEDS: INSULIN DETEMIR UD 100 UNITS/ML SYR SUBCUT SCH (22:37)
[2017-02-04] VITALS: BP 120/62
[2017-02-04 04:00] VITALS: BP 136/66
[2017-02-04] MEDS: LEVOFLOXACIN 500MG PREMIX 100 ML IV SCH (05:20)
[2017-02-04] MEDS: ACETAMINOPHEN 325MG TABLET PO PRN (05:21)
[2017-02-04] MEDS: INSULIN LISPRO 100 UNITS/ML SUBCUT SCH ×8 (05:28→20:52)
[2017-02-04] MEDS: BLOOD SUGAR DIAGNOSTIC STRIP TEST SCH ×4 (05:29→20:31)
[2017-02-04 08:00] VITALS: BP 130/63
[2017-02-04] MEDS: FAMOTIDINE 20MG/2ML VIAL IV SCH ×2 (09:06→20:41)
[2017-02-04] MEDS: ASPIRIN 325MG EC TABLET PO SCH (09:06)
[2017-02-04] MEDS: DOCUSATE SODIUM 100MG CAPSULE PO PRN ×2 (09:06→18:30)
[2017-02-04] MEDS: ENOXAPARIN 40MG/0.4ML SYR SUBCUT SCH (09:06)
[2017-02-04] MEDS: LISINOPRIL 20MG TABLET PO SCH ×2 (09:06→20:42)
[2017-02-04] MEDS: METOPROLOL TARTRATE 25MG TABLET PO SCH ×2 (09:07→20:42)
[2017-02-04 12:00] VITALS: BP 128/69
[2017-02-04 16:00] VITALS: BP 109/70
[2017-02-04 20:00] VITALS: BP 129/69
[2017-02-04] MEDS: INSULIN DETEMIR UD 100 UNITS/ML SYR SUBCUT SCH (21:57)
[2017-02-05] VITALS: BP 136/67
[2017-02-05 04:00] VITALS: BP 148/76
[2017-02-05] MEDS: LEVOFLOXACIN 500MG PREMIX 100 ML IV SCH (04:13)
[2017-02-05] MEDS: INSULIN LISPRO 100 UNITS/ML SUBCUT SCH ×7 (06:45→21:00)
[2017-02-05] MEDS: BLOOD SUGAR DIAGNOSTIC STRIP TEST SCH ×4 (06:49→21:06)
[2017-02-05 08:00] VITALS: BP 132/64
[2017-02-05] MEDS: FAMOTIDINE 20MG/2ML VIAL IV SCH ×2 (09:11→21:11)
[2017-02-05] MEDS: METOPROLOL TARTRATE 25MG TABLET PO SCH ×2 (09:11→21:11)
[2017-02-05] MEDS: ASPIRIN 325MG EC TABLET PO SCH (09:11)
[2017-02-05] MEDS: LISINOPRIL 20MG TABLET PO SCH ×2 (09:12→21:11)
[2017-02-05] MEDS: ENOXAPARIN 40MG/0.4ML SYR SUBCUT SCH (09:12)
[2017-02-05 12:00] VITALS: BP 122/64
[2017-02-05 16:00] VITALS: BP 142/67
[2017-02-05 20:00] VITALS: BP 130/63
[2017-02-05] MEDS: INSULIN DETEMIR UD 100 UNITS/ML SYR SUBCUT SCH (21:58)
[2017-02-06] VITALS: BP 129/71
[2017-02-06] MEDS: ACETAMINOPHEN 325MG TABLET PO PRN (00:30)
[2017-02-06 04:00] VITALS: BP 125/60
[2017-02-06] MEDS: LEVOFLOXACIN 500MG PREMIX 100 ML IV SCH (04:02)
[2017-02-06] MEDS: INSULIN LISPRO 100 UNITS/ML SUBCUT SCH ×7 (06:12→21:41)
[2017-02-06] MEDS: BLOOD SUGAR DIAGNOSTIC STRIP TEST SCH ×4 (06:12→20:34)
[2017-02-06 08:00] VITALS: BP 111/58
[2017-02-06] MEDS: METOPROLOL TARTRATE 25MG TABLET PO SCH ×2 (09:00→21:39)
[2017-02-06] MEDS: LISINOPRIL 20MG TABLET PO SCH ×2 (09:00→21:42)
[2017-02-06] MEDS: ENOXAPARIN 40MG/0.4ML SYR SUBCUT SCH (09:43)
[2017-02-06] MEDS: FAMOTIDINE 20MG/2ML VIAL IV SCH ×2 (09:43→21:42)
[2017-02-06] MEDS: ASPIRIN 325MG EC TABLET PO SCH (09:44)
[2017-02-06 12:00] VITALS: BP 120/72
[2017-02-06 16:00] VITALS: BP 125/69
[2017-02-06 20:00] VITALS: BP 121/55
[2017-02-06] MEDS: INSULIN DETEMIR UD 100 UNITS/ML SYR SUBCUT SCH (21:38)
[2017-02-07] VITALS (7 sets, daily range): BP systolic 110–152; BP diastolic 59–66
[2017-02-07] MEDS: ACETAMINOPHEN 325MG TABLET PO PRN (04:38)
[2017-02-07] MEDS: BLOOD SUGAR DIAGNOSTIC STRIP TEST SCH ×4 (06:08→21:39)
[2017-02-07] MEDS: INSULIN LISPRO 100 UNITS/ML SUBCUT SCH ×7 (07:03→21:29)
[2017-02-07] MEDS: METOPROLOL TARTRATE 25MG TABLET PO SCH ×2 (09:00→21:29)
[2017-02-07] MEDS: FAMOTIDINE 20MG/2ML VIAL IV SCH ×2 (09:22→21:00)
[2017-02-07] MEDS: ENOXAPARIN 40MG/0.4ML SYR SUBCUT SCH (09:22)
[2017-02-07] MEDS: LISINOPRIL 20MG TABLET PO SCH ×2 (09:22→21:38)
[2017-02-07] MEDS: DOCUSATE SODIUM 100MG CAPSULE PO PRN ×2 (09:23→18:51)
[2017-02-07] MEDS: ASPIRIN 325MG EC TABLET PO SCH (09:23)
[2017-02-07] MEDS ORDERED: LEVOFLOXACIN 500MG TABLET PO SCH (11:00)
[2017-02-07] MEDS ORDERED: ATORVASTATIN CALCIUM 10MG TABLET PO SCH (21:00)
== END 2017-02-07 21:45 | DRG 871 ==
LOC: ER 16:43 → 5WST 22:22 → ENRESERV 22:24 → EDBEDREQTM 22:28 → EDBEDREQ 22:28 → SUPCPDRO 23:25
PROVIDERS: ADMIT Internal Medicine; ATTEND Internal Medicine
DX: A41.9 Sepsis, unspecified organism (principal); E11.00 Type 2 diabetes mellitus with hyperosmolarity without nonketotic hyperglycemic-hyperosmolar coma (NKHHC); G92 Toxic encephalopathy; N39.0 Urinary tract infection, site not specified; E44.0 Moderate protein-calorie malnutrition; E87.1 Hypo-osmolality and hyponatremia; I69.351 Hemiplegia and hemiparesis following cerebral infarction affecting right dominant side; E11.65 Type 2 diabetes mellitus with hyperglycemia; D64.9 Anemia, unspecified; M19.90 Unspecified osteoarthritis, unspecified site; I10 Essential (primary) hypertension; Z90.710 Acquired absence of both cervix and uterus; Z91.11 Patient's noncompliance with dietary regimen; Z91.14 Patient's other noncompliance with medication regimen; Z88.1 Allergy status to other antibiotic agents; Z68.20 Body mass index [BMI] 20.0-20.9, adult; Z88.2 Allergy status to sulfonamides
CPT/HCPCS: 36415; 36600; 51702; 70551; 71010; 80053; 80061; 80305; 81001; 82010; 82375; 82550; 82553; 82607; 82746; 82805; 82962; 83036; 83735; 83880; 83930; 84100; 84443; 84484; 85025; 85610; 87040; 87086; 93005; 93306; 93880; 96361; 96365; 97110; 97112; 97163; 97166; 97530; 97535; 99285; A6261; C1893; J0696; J1650; J1815; J1956; J2270; J3490; J7030; J7040

== ENCOUNTER 2017-08-27 15:06 | Emergency (ER) | payer MEDICARE ==
[~2017-08-27] VITALS: Ht 157.5 cm; Wt 88.0 kg
[2017-08-27 15:48] LABS: BASOPHILS % 0.5 % (0.0-2.0); HEMATOCRIT. 29.8 % (36.0-48.0); HEMOGLOBIN. 9.8 g/dL (12.0-16.0); LYMPHOCYTES % 13.3 % (20.0-50.0); MEAN PLATELET VOLUME 7.3 fl (7.4-10.4); NEUTROPHILS % 75.2 % (40.0-76.0); PLATELET 511 x1000/uL (130-400); RED BLOOD CELL COUNT 3.18 mill/uL (4.2-5.4); RED CELL DISTRIBUTION WIDTH 14.8 % (11.6-14.6)
[2017-08-27 15:49] LABS: CHLORIDE 103 mEq/L (98-107)
[2017-08-27 17:01] LABS: CLARITY URINE TURBID (CLEAR); COLOR URINE YELLOW (YELLOW); KETONES URINE NEGATIVE (NEGATIVE); LEUKOCYTE ESTERASE URINE 3+ (NEGATIVE); NITRITE URINE NEGATIVE (NEGATIVE); OCCULT BLOOD URINE 2+ (NEGATIVE); PH URINE 6.5 (4.5-8.0); PROTEIN URINE 2+ (NEGATIVE); SPECIFIC GRAVITY URINE 1.013 (1.005-1.030); UROBILINOGEN URINE 0.2 E.U./dL (0.2-1.0)
[2017-08-27] MEDS ORDERED: LEVOFLOXACIN 750MG PREMIX 150 ML IV ONE (17:15)
[2017-08-27 19:08] VITALS: BP 118/69
== END 2017-08-27 19:34 | disposition home or self-care (01) ==
LOC: ER 15:06
DX: N39.0 Urinary tract infection, site not specified (principal); I69.351 Hemiplegia and hemiparesis following cerebral infarction affecting right dominant side; E11.9 Type 2 diabetes mellitus without complications; I10 Essential (primary) hypertension; E86.0 Dehydration; M19.90 Unspecified osteoarthritis, unspecified site; D47.3 Essential (hemorrhagic) thrombocythemia; D72.829 Elevated white blood cell count, unspecified; Z88.3 Allergy status to other anti-infective agents; Z88.2 Allergy status to sulfonamides
CPT/HCPCS: 36415; 80053; 81003; 85025; 87086; 96365; 99285; J1956

== ENCOUNTER 2017-11-08 22:07 | Inpatient (IN) | payer MEDICARE, MEDICAID ==
[~2017-11-08] VITALS: Ht 162.6 cm; Wt 44.9 kg
[2017-11-08] MEDS ORDERED: OCTREOTIDE ACETATE 50 MCG/ML 1ML IV STA (22:39)
[2017-11-08] MEDS ORDERED: SODIUM CHLORIDE 0.9% 1,000 ML IV ONE (22:39)
[2017-11-08] MEDS ORDERED: PANTOPRAZOLE SODIUM 40 MG/VIAL IV STA (22:39)
[2017-11-08 23:45] LABS: HEMATOCRIT. 24.6 % (36.0-48.0); HEMOGLOBIN. 7.9 g/dL (12.0-16.0); MEAN CORPUSCULAR HEMOGLOBIN 29.1 pg (28.0-32.0); MEAN CORPUSCULAR VOLUME 91.2 fL (81.0-99.0); MEAN PLATELET VOLUME 8.7 fl (7.4-10.4); PLATELET 689 x1000/uL (130-400); RED CELL DISTRIBUTION WIDTH 18.4 % (11.6-14.6)
[2017-11-08 23:52] LABS: INR 1.5; PROTHROMBIN TIME 15.4 sec (9.4-11.6)
[2017-11-09 01:06] LABS: CHLORIDE 114 mEq/L (98-107)
[2017-11-09 01:10] LABS: ETHANOL BLOOD < 10 mg/dL
[2017-11-09 01:14] LABS: CLARITY URINE TURBID (CLEAR); COLOR URINE YELLOW (YELLOW); KETONES URINE NEGATIVE (NEGATIVE); LEUKOCYTE ESTERASE URINE 1+ (NEGATIVE); NITRITE URINE NEGATIVE (NEGATIVE); OCCULT BLOOD URINE 3+ (NEGATIVE); PROTEIN URINE 2+ (NEGATIVE); SPECIFIC GRAVITY URINE 1.004 (1.005-1.030); UROBILINOGEN URINE 0.2 E.U./dL (0.2-1.0)
[2017-11-09 02:04] LABS: *AMPHETAMINES SCREEN URINE NEGATIVE (NEGATIVE); *BARBITURATES SCREEN URINE NEGATIVE (NEGATIVE); *BENZODIAZEPINES SCREEN URINE NEGATIVE (NEGATIVE); *COCAINE SCREEN URINE NEGATIVE (NEGATIVE); METHADONE URINE SCREEN NEGATIVE (NEGATIVE); OPIATES URINE SCREEN NEGATIVE (NEGATIVE)
[2017-11-09 02:05] LABS: CANNABINOID URINE SCREEN NEGATIVE (NEGATIVE); PHENCYCLIDINE URINE SCREEN NEGATIVE (NEGATIVE)
[2017-11-09 02:38] LABS: PLATELET ESTIMATE INCREASED
[2017-11-09] MEDS ORDERED: VANCOMYCIN 1 G PREMIX 200 ML IV SCH (04:00)
[2017-11-09] MEDS ORDERED: SODIUM CHLORIDE 0.9% 1000ML BAG (SEPSIS BOLUS) IV ONE (04:00)
[2017-11-09] MEDS ORDERED: LEVOFLOXACIN 750MG PREMIX 150 ML IV SCH (04:00)
[2017-11-09] MEDS ORDERED: SODIUM BICARBONATE 8.4% 1 MEQ/ML 50ML SYR IV SCH (06:00)
[2017-11-09] MEDS ORDERED: CALCIUM CHLORIDE 1GM/10ML SYR IV ONE (06:00)
[2017-11-09] MEDS ORDERED: INSULIN REGULAR (HUMULIN R) 300UNITS/3ML IV SCH (06:00)
[2017-11-09] MEDS ORDERED: DEXTROSE 50% WATER 50ML SYRINGE IV ONE (06:00)
[2017-11-09] MEDS ORDERED: SODIUM POLYSTYRENE SULFONATE 15 G/60 ML BOT PO SCH (06:00)
[2017-11-09 08:00] VITALS: BP 115/64
[2017-11-09 10:30] VITALS: BP 115/64
[2017-11-09 12:00] VITALS: BP 112/61
[2017-11-09] MEDS ORDERED: CLONIDINE 0.1MG TABLET PO PRN (12:30)
[2017-11-09] MEDS ORDERED: ONDANSETRON HCL 4MG/2ML VIAL IV PRN (12:30)
[2017-11-09] MEDS ORDERED: PIPERACILLIN/TAZ 3.375G PREMIX 50 ML IV SCH (12:30)
[2017-11-09] MEDS ORDERED: MAGNESIUM/ALUMINUM HYDROXIDE/SIMETHICONE 30ML UDC PO PRN (12:30)
[2017-11-09] MEDS ORDERED: DOCUSATE SODIUM 100MG CAPSULE PO PRN (12:30)
[2017-11-09] MEDS ORDERED: NA PHOS,M-B/NA PHOS,DI-BA ENEMA 118ML PR PRN (12:30)
[2017-11-09] MEDS ORDERED: ONDANSETRON 4MG ODT PO PRN (14:00)
[2017-11-09] MEDS: PIPERACILLIN/TAZ 2.25G PREMIX 50 ML IV SCH ×2 (15:15→22:06)
[2017-11-09] MEDS: DEXT 5%/0.45% NACL 1000ML 1,000 ML IV SCH (15:15)
[2017-11-09] MEDS: MEGESTROL ACETATE 400 MG/10 ML UDC PO SCH (15:15)
[2017-11-09 16:00] VITALS: BP 104/59
[2017-11-09] MEDS ORDERED: DEXTROSE 50% WATER 50ML SYRINGE IV PRN (19:00)
[2017-11-09 20:00] VITALS: BP 126/74
[2017-11-09] MEDS: BLOOD SUGAR DIAGNOSTIC STRIP TEST SCH (21:58)
[2017-11-09] MEDS: INSULIN LISPRO 100 UNITS/ML SUBCUT SCH (22:07)
[2017-11-10] VITALS: BP 111/65
[2017-11-10] MEDS: DEXT 5%/0.45% NACL 1000ML 1,000 ML IV SCH (03:23)
[2017-11-10 04:00] VITALS: BP 118/53
[2017-11-10] MEDS: BLOOD SUGAR DIAGNOSTIC STRIP TEST SCH ×4 (05:52→21:00)
[2017-11-10] MEDS: PIPERACILLIN/TAZ 2.25G PREMIX 50 ML IV SCH ×3 (05:53→22:12)
[2017-11-10] MEDS: INSULIN LISPRO 100 UNITS/ML SUBCUT SCH ×4 (06:03→22:17)
[2017-11-10 07:55] LABS: MEAN CORPUSCULAR HEMOGLOBIN 28.1 pg (28.0-32.0); MEAN CORPUSCULAR VOLUME 91.9 fL (81.0-99.0); MEAN PLATELET VOLUME 8.2 fl (7.4-10.4); PLATELET 530 x1000/uL (130-400); RED BLOOD CELL COUNT 2.83 mill/uL (4.2-5.4)
[2017-11-10 08:00] VITALS: BP 107/53
[2017-11-10 09:08] LABS: CHLORIDE 123 mEq/L (98-107)
[2017-11-10] MEDS: MEGESTROL ACETATE 400 MG/10 ML UDC PO SCH (09:44)
[2017-11-10 10:30] LABS: PLATELET ESTIMATE INCREASED
[2017-11-10 12:00] VITALS: BP 133/69
[2017-11-10] MEDS: DEXTROSE 5% WATER 1,000 ML IV SCH ×2 (13:29→22:58)
[2017-11-10] MEDS: INSULIN GLARGINE UD 100 UNITS/ML SYR SUBCUT SCH (14:00)
[2017-11-10 16:00] VITALS: BP 143/102
[2017-11-10 20:00] VITALS: BP 123/63
[2017-11-10] MEDS ORDERED: INSULIN GLARGINE UD 100 UNITS/ML SYR SUBCUT NR (22:00)
[2017-11-11] VITALS: BP 119/58
[2017-11-11] MEDS: PIPERACILLIN/TAZ 2.25G PREMIX 50 ML IV SCH ×3 (06:27→23:11)
[2017-11-11] MEDS: BLOOD SUGAR DIAGNOSTIC STRIP TEST SCH ×4 (06:33→21:00)
[2017-11-11] MEDS: INSULIN LISPRO 100 UNITS/ML SUBCUT SCH ×4 (06:33→21:00)
[2017-11-11 08:00] VITALS: BP 110/65
[2017-11-11 09:04] LABS: HEMATOCRIT. 24.8 % (36.0-48.0); HEMOGLOBIN. 7.9 g/dL (12.0-16.0); MEAN CORPUSCULAR HEMOGLOBIN 28.5 pg (28.0-32.0); MEAN CORPUSCULAR VOLUME 89.4 fL (81.0-99.0); PLATELET 461 x1000/uL (130-400); RED BLOOD CELL COUNT 2.77 mill/uL (4.2-5.4); RED CELL DISTRIBUTION WIDTH 17.9 % (11.6-14.6)
[2017-11-11] MEDS: MEGESTROL ACETATE 400 MG/10 ML UDC PO SCH (09:10)
[2017-11-11] MEDS: INSULIN GLARGINE UD 100 UNITS/ML SYR SUBCUT SCH ×2 (09:16→23:13)
[2017-11-11 10:36] LABS: PLATELET ESTIMATE SLIGHTLY INCREASED
[2017-11-11 10:43] LABS: CHLORIDE 123 mEq/L (98-107)
[2017-11-11 12:00] VITALS: BP 150/80
[2017-11-11] MEDS: DEXTROSE 5% WATER 1,000 ML IV SCH ×2 (13:15→23:12)
[2017-11-11 16:00] VITALS: BP 128/82
[2017-11-11] MEDS: VANCOMYCIN HCL 1000 MG/20 ML ORAL PO SCH ×2 (17:52→23:40)
[2017-11-11] MEDS: ACETAMINOPHEN 325MG TABLET PO PRN (18:14)
[2017-11-11 20:00] VITALS: BP 114/74
[2017-11-11] MEDS: MUPIROCIN 2% OINT 22GM NS SCH (21:01)
[2017-11-12] VITALS: BP 112/69
[2017-11-12 04:00] VITALS: BP 120/73
[2017-11-12] MEDS: ACETAMINOPHEN 325MG TABLET PO PRN (05:44)
[2017-11-12] MEDS: PIPERACILLIN/TAZ 2.25G PREMIX 50 ML IV SCH (05:44)
[2017-11-12] MEDS: VANCOMYCIN HCL 1000 MG/20 ML ORAL PO SCH ×3 (05:45→18:32)
[2017-11-12] MEDS: BLOOD SUGAR DIAGNOSTIC STRIP TEST SCH ×4 (06:13→21:10)
[2017-11-12] MEDS: INSULIN LISPRO 100 UNITS/ML SUBCUT SCH ×4 (06:17→21:00)
[2017-11-12 07:43] LABS: HEMATOCRIT. 22.9 % (36.0-48.0); HEMOGLOBIN. 7.3 g/dL (12.0-16.0); MEAN CORPUSCULAR HEMOGLOBIN 28.8 pg (28.0-32.0); MEAN CORPUSCULAR VOLUME 90.2 fL (81.0-99.0); PLATELET 386 x1000/uL (130-400); RED BLOOD CELL COUNT 2.54 mill/uL (4.2-5.4); RED CELL DISTRIBUTION WIDTH 17.8 % (11.6-14.6)
[2017-11-12 07:44] LABS: CHLORIDE 117 mEq/L (98-107)
[2017-11-12 07:52] LABS: PHOSPHORUS 1.3 mg/dL (2.5-4.9)
[2017-11-12 07:53] LABS: CREATINE KINASE 35 IU/L (26-192)
[2017-11-12 08:00] VITALS: BP 137/81
[2017-11-12] MEDS: MEGESTROL ACETATE 400 MG/10 ML UDC PO SCH (09:11)
[2017-11-12] MEDS: MUPIROCIN 2% OINT 22GM NS SCH ×2 (09:12→17:29)
[2017-11-12 10:48] LABS: PLATELET ESTIMATE NORMAL
[2017-11-12] MEDS ORDERED: POTASSIUM PHOS,M-BASIC-D-BASIC 30 MMOL in DEXT 5% WATER 500 ML IV SCH (11:00)
[2017-11-12] MEDS: INSULIN GLARGINE UD 100 UNITS/ML SYR SUBCUT SCH ×2 (11:50→21:12)
[2017-11-12 12:00] VITALS: BP 130/70
[2017-11-12] MEDS: DEXTROSE 5% IV SCH ×2 (12:36→19:04)
[2017-11-12] MEDS: POTASSIUM ACETATE IV SCH ×2 (12:36→19:04)
[2017-11-12] MEDS: WATER IV SCH ×2 (12:36→19:04)
[2017-11-12] MEDS: METRONIDAZOLE 500 MG PREMIX 100 ML IV SCH ×2 (15:41→21:11)
[2017-11-12] MEDS: PANTOPRAZOLE SODIUM 40 MG/VIAL IV SCH (15:41)
[2017-11-12 16:00] VITALS: BP 133/82
[2017-11-12 16:06] LABS: TOTAL IRON BINDING CAPACITY 143 ug/dL (250-450)
[2017-11-12] MEDS: CEFTRIAXONE 1 G PREMIX 50 ML IV SCH (17:23)
[2017-11-12 20:00] VITALS: BP 130/85
[2017-11-12 23:06] LABS: HEMATOCRIT 23.2 % (36.0-48.0); HEMOGLOBIN 7.6 g/dL (12.0-16.0)
[2017-11-12 23:44] LABS: FOLIC ACID (FOLATE) SERUM 9.4 ng/mL (>5.38)
[2017-11-13] VITALS (11 sets, daily range): BP systolic 111–152; BP diastolic 62–94
[2017-11-13] MEDS: PANTOPRAZOLE SODIUM 40 MG/VIAL IV SCH ×3 (00:33→21:18)
[2017-11-13] MEDS: VANCOMYCIN HCL 1000 MG/20 ML ORAL PO SCH ×4 (00:33→17:38)
[2017-11-13] MEDS: POTASSIUM ACETATE IV SCH (05:25)
[2017-11-13] MEDS: WATER IV SCH (05:25)
[2017-11-13] MEDS: DEXTROSE 5% IV SCH (05:25)
[2017-11-13] MEDS: METRONIDAZOLE 500 MG PREMIX 100 ML IV SCH ×3 (05:25→21:18)
[2017-11-13] MEDS: INSULIN LISPRO 100 UNITS/ML SUBCUT SCH ×4 (05:40→21:00)
[2017-11-13] MEDS: BLOOD SUGAR DIAGNOSTIC STRIP TEST SCH ×4 (05:40→21:12)
[2017-11-13 07:35] LABS: HEMATOCRIT. 28.5 % (36.0-48.0); HEMOGLOBIN. 9.1 g/dL (12.0-16.0); MEAN CORPUSCULAR HEMOGLOBIN 27.9 pg (28.0-32.0); MEAN CORPUSCULAR VOLUME 87.4 fL (81.0-99.0); MEAN PLATELET VOLUME 8.2 fl (7.4-10.4); PLATELET 337 x1000/uL (130-400); RED BLOOD CELL COUNT 3.26 mill/uL (4.2-5.4); RED CELL DISTRIBUTION WIDTH 18.9 % (11.6-14.6)
[2017-11-13 07:52] LABS: PHOSPHORUS 2.4 mg/dL (2.5-4.9)
[2017-11-13] MEDS: MEGESTROL ACETATE 400 MG/10 ML UDC PO SCH (09:16)
[2017-11-13] MEDS: CEFTRIAXONE 1 G PREMIX 50 ML IV SCH (09:16)
[2017-11-13] MEDS: MUPIROCIN 2% OINT 22GM NS SCH ×2 (09:17→17:37)
[2017-11-13] MEDS: INSULIN GLARGINE UD 100 UNITS/ML SYR SUBCUT SCH ×2 (09:22→21:12)
[2017-11-13] MEDS ORDERED: MAGNESIUM 2 G PREMIX 50 ML IV SCH (11:00)
[2017-11-13] MEDS: POTASSIUM ACETATE 30 MEQ in DEXTROSE 5% WATER 1,000 ML IV SCH (13:15)
[2017-11-13 15:37] LABS: PLATELET ESTIMATE NORMAL
[2017-11-13 15:41] LABS: HEMATOCRIT 29.6 % (36.0-48.0); HEMOGLOBIN 9.5 g/dL (12.0-16.0)
[2017-11-14] VITALS: BP 166/90
[2017-11-14] MEDS: VANCOMYCIN HCL 1000 MG/20 ML ORAL PO SCH ×4 (00:22→17:44)
[2017-11-14 04:00] VITALS: BP 143/79
[2017-11-14] MEDS: POTASSIUM ACETATE 30 MEQ in DEXTROSE 5% WATER 1,000 ML IV SCH ×2 (05:14→05:16)
[2017-11-14] MEDS: METRONIDAZOLE 500 MG PREMIX 100 ML IV SCH ×4 (05:14→22:00)
[2017-11-14] MEDS: BLOOD SUGAR DIAGNOSTIC STRIP TEST SCH ×4 (05:52→21:01)
[2017-11-14] MEDS: INSULIN LISPRO 100 UNITS/ML SUBCUT SCH ×4 (05:55→21:12)
[2017-11-14 07:22] LABS: PHOSPHORUS 1.7 mg/dL (2.5-4.9)
[2017-11-14 08:00] VITALS: BP 149/88
[2017-11-14 08:31] LABS: BG CARBOXYHEMOGLOBIN 0.2 % (0.5-1.5); BG DEOXYHEMOGLOBIN 1.7 % (0.0-5.0); BG FRACTION INSPIRED OXYGEN 21; BG HCO3 ACT 17.1 mmol/L (22.0-26.0); BG METHEMOGLOBIN 0.2 % (0.0-1.5); BG OXYGEN SATURATION 98.3 % (92.0-98.5); BG OXYHEMOGLOBIN 97.9 % (94.0-97.0); BG PCO2 22.9 mmHg (35.0-45.0); BG PO2 111.3 mmHg (75.0-100.0); BG SAMPLE SITE LEFT RADIAL; BG TOTAL HEMOGLOBIN 9.9 g/dL (12.0-18.0); BG VENT MODE ROOM AIR
[2017-11-14] MEDS ORDERED: SODIUM PHOS,M-BASIC-D-BASIC 20 MM in DEXT 5% WATER 243.3333 ML IV SCH (09:00)
[2017-11-14] MEDS: PANTOPRAZOLE SODIUM 40 MG/VIAL IV SCH ×2 (09:27→21:11)
[2017-11-14] MEDS: MEGESTROL ACETATE 400 MG/10 ML UDC PO SCH (09:27)
[2017-11-14] MEDS: INSULIN GLARGINE UD 100 UNITS/ML SYR SUBCUT SCH ×2 (09:27→23:47)
[2017-11-14] MEDS: CEFTRIAXONE 1 G PREMIX 50 ML IV SCH (09:28)
[2017-11-14] MEDS: METOPROLOL TARTRATE 25MG TABLET PO SCH ×2 (09:29→21:11)
[2017-11-14] MEDS: MUPIROCIN 2% OINT 22GM NS SCH ×2 (09:29→17:44)
[2017-11-14] MEDS: DEXTROSE 5% WATER 1,000 ML IV SCH (09:40)
[2017-11-14 12:00] VITALS: BP 126/72
[2017-11-14 12:30] LABS: BASOPHILS % 0.8 % (0.0-2.0); EOSINOPHILS % 0.5 % (0.0-5.0); HEMATOCRIT. 28.9 % (36.0-48.0); HEMOGLOBIN. 9.2 g/dL (12.0-16.0); LYMPHOCYTES % 8.8 % (20.0-50.0); MEAN CORPUSCULAR HEMOGLOBIN 28.4 pg (28.0-32.0); MEAN CORPUSCULAR VOLUME 88.7 fL (81.0-99.0); MEAN PLATELET VOLUME 8.8 fl (7.4-10.4); MONOCYTES % 2.5 % (2.0-8.0); NEUTROPHILS % 87.4 % (40.0-76.0); PLATELET 307 x1000/uL (130-400); RED BLOOD CELL COUNT 3.26 mill/uL (4.2-5.4); RED CELL DISTRIBUTION WIDTH 19.3 % (11.6-14.6)
[2017-11-14] MEDS ORDERED: METRONIDAZOLE 500MG TABLET PO SCH (14:00)
[2017-11-14 16:00] VITALS: BP 123/71
[2017-11-14] MEDS: DOCUSATE SODIUM 250MG CAPSULE PO SCH (17:00)
[2017-11-14 20:00] VITALS: BP 154/84
[2017-11-15] VITALS: BP 130/79
[2017-11-15 04:00] VITALS: BP 142/74
[2017-11-15] MEDS: DEXTROSE 5% WATER 1,000 ML IV SCH (05:09)
[2017-11-15] MEDS: VANCOMYCIN HCL 1000 MG/20 ML ORAL PO SCH ×3 (06:00→12:00)
[2017-11-15] MEDS: METRONIDAZOLE 500 MG PREMIX 100 ML IV SCH (06:00)
[2017-11-15] MEDS: INSULIN LISPRO 100 UNITS/ML SUBCUT SCH ×3 (06:42→18:22)
[2017-11-15] MEDS: BLOOD SUGAR DIAGNOSTIC STRIP TEST SCH ×3 (06:42→18:21)
[2017-11-15 07:01] LABS: BASOPHILS % 0.5 % (0.0-2.0); EOSINOPHILS % 0.7 % (0.0-5.0); HEMATOCRIT. 29.8 % (36.0-48.0); HEMOGLOBIN. 9.6 g/dL (12.0-16.0); LYMPHOCYTES % 13.5 % (20.0-50.0); MEAN CORPUSCULAR HEMOGLOBIN 28.5 pg (28.0-32.0); MEAN CORPUSCULAR VOLUME 88.8 fL (81.0-99.0); MEAN PLATELET VOLUME 8.6 fl (7.4-10.4); MONOCYTES % 3.9 % (2.0-8.0); NEUTROPHILS % 81.4 % (40.0-76.0); PLATELET 292 x1000/uL (130-400); RED BLOOD CELL COUNT 3.36 mill/uL (4.2-5.4)
[2017-11-15 08:00] VITALS: BP 146/78
[2017-11-15 08:02] LABS: CHLORIDE 114 mEq/L (98-107)
[2017-11-15 08:03] LABS: PHOSPHORUS 2.1 mg/dL (2.5-4.9)
[2017-11-15] MEDS: METOPROLOL TARTRATE 25MG TABLET PO SCH (10:11)
[2017-11-15] MEDS: PANTOPRAZOLE SODIUM 40 MG/VIAL IV SCH (10:11)
[2017-11-15] MEDS: DOCUSATE SODIUM 250MG CAPSULE PO SCH ×2 (10:12→18:23)
[2017-11-15] MEDS: MUPIROCIN 2% OINT 22GM NS SCH ×2 (10:12→17:00)
[2017-11-15] MEDS: CEFTRIAXONE 1 G PREMIX 50 ML IV SCH (10:12)
[2017-11-15] MEDS: MEGESTROL ACETATE 400 MG/10 ML UDC PO SCH (10:28)
[2017-11-15] MEDS: INSULIN GLARGINE UD 100 UNITS/ML SYR SUBCUT SCH (10:29)
[2017-11-15 12:00] VITALS: BP 124/67
[2017-11-15] MEDS ORDERED: POTASSIUM PHOS,M-BASIC-D-BASIC 20 MMOL in DEXT 5% WATER 243.3333 ML IV ONE (12:45)
[2017-11-15] MEDS ORDERED: POTASSIUM-SODIUM PHOSPHATE POWDER PACKET PO NR (12:45)
[2017-11-15 16:00] VITALS: BP 125/72
[2017-11-15 17:15] VITALS: BP 125/72
[2017-11-15] MEDS ORDERED: METOPROLOL TARTRATE 50MG TABLET PO SCH (21:00)
== END 2017-11-15 18:25 | DRG 871 ==
LOC: ER 22:10 → 5WST 11-09 05:59 → EDBEDREQTM 11-09 06:04 → EDBEDREQSVC 11-09 06:04 → ENRESERV 11-09 08:05
PROVIDERS: ADMIT Hospitalist; ATTEND Hospitalist
PROC: 30233N1 Transfusion of Nonautologous Red Blood Cells into Peripheral Vein, Percutaneous Approach (ICD-10-PCS; principal; 2017-11-13)
DX: A41.59 Other Gram-negative sepsis (principal); E43 Unspecified severe protein-calorie malnutrition; N17.9 Acute kidney failure, unspecified; N39.0 Urinary tract infection, site not specified; E87.0 Hyperosmolality and hypernatremia; E87.2 Acidosis; E87.3 Alkalosis; I69.351 Hemiplegia and hemiparesis following cerebral infarction affecting right dominant side; K92.0 Hematemesis; N13.6 Pyonephrosis; D68.59 Other primary thrombophilia; E87.5 Hyperkalemia; E86.0 Dehydration; E11.65 Type 2 diabetes mellitus with hyperglycemia; D47.3 Essential (hemorrhagic) thrombocythemia; D63.8 Anemia in other chronic diseases classified elsewhere; M19.90 Unspecified osteoarthritis, unspecified site; B96.4 Proteus (mirabilis) (morganii) as the cause of diseases classified elsewhere; E78.5 Hyperlipidemia, unspecified; E83.39 Other disorders of phosphorus metabolism; E87.6 Hypokalemia; I10 Essential (primary) hypertension; N32.3 Diverticulum of bladder; Z87.891 Personal history of nicotine dependence; Z90.710 Acquired absence of both cervix and uterus; Z88.2 Allergy status to sulfonamides; Z88.1 Allergy status to other antibiotic agents; Z88.8 Allergy status to other drugs, medicaments and biological substances; Z79.899 Other long term (current) drug therapy; Z79.82 Long term (current) use of aspirin
CPT/HCPCS: 36415; 36600; 71045; 74176; 80048; 80053; 80305; 81003; 82010; 82270; 82375; 82550; 82607; 82728; 82746; 82805; 82962; 83540; 83550; 83605; 83615; 83690; 83735; 83880; 84100; 84132; 84134; 84484; 85014; 85018; 85025; 85610; 86850; 86900; 86920; 87040; 87077; 87086; 87186; 92610; 93005; 93970; 96361; 96365; 96366; 96375; 99291; A6261; C9113; G0482; J0696; J1815; J1956; J2354; J2543; J3370; J3475; J3490; J7030; J7042; J7050; J7060; J7070; P9016; A4315

== ENCOUNTER 2018-01-25 17:32 | Inpatient (IN) | payer MEDICARE, MEDICAID ==
[~2018-01-25] VITALS: Ht 167.6 cm; Wt 54.2 kg
[2018-01-25] MEDS ORDERED: SODIUM CHLORIDE 0.9% 1,000 ML IV ONE ×3 (18:29→23:45)
[2018-01-25 19:27] LABS: BASOPHILS % 0.5 % (0.0-2.0); EOSINOPHILS % 0.2 % (0.0-5.0); HEMOGLOBIN. 8.5 g/dL (12.0-16.0); LYMPHOCYTES % 27.1 % (20.0-50.0); MEAN CORPUSCULAR HEMOGLOBIN 28.1 pg (28.0-32.0); MEAN CORPUSCULAR VOLUME 89.4 fL (81.0-99.0); MEAN PLATELET VOLUME 9.6 fl (7.4-10.4); NEUTROPHILS % 69.2 % (40.0-76.0); PLATELET 708 x1000/uL (130-400); RED BLOOD CELL COUNT 3.02 mill/uL (4.2-5.4); RED CELL DISTRIBUTION WIDTH 23.5 % (11.6-14.6)
[2018-01-25 20:06] LABS: PLATELET ESTIMATE MARKEDLY INCREASED
[2018-01-25 20:28] LABS: CHLORIDE 125 mEq/L (98-107)
[2018-01-25] MEDS ORDERED: VANCOMYCIN 1 G PREMIX 200 ML IV ONE (21:45)
[2018-01-25] MEDS ORDERED: PIPERACILLIN/TAZ 3.375G PREMIX 50 ML IV ONE (21:45)
[2018-01-25] MEDS ORDERED: SODIUM CHLORIDE 0.9% 1,000 ML IV SCH (22:43)
[2018-01-25] MEDS ORDERED: CLONIDINE 0.1MG TABLET PO PRN (22:45)
[2018-01-25] MEDS ORDERED: ONDANSETRON HCL 4MG/2ML INJ IV PRN (22:45)
[2018-01-25] MEDS ORDERED: NA PHOS,M-B/NA PHOS,DI-BA ENEMA 118ML PR PRN (22:45)
[2018-01-25] MEDS ORDERED: IPRATROPIUM/ALBUTEROL 0.5-3(2.5)MG/3ML NEB INH PRN (22:45)
[2018-01-25] MEDS ORDERED: GUAIFENESIN 200MG/10ML SUGAR FREE UDC PO PRN (22:45)
[2018-01-25] MEDS ORDERED: MORPHINE SULFATE 4 MG/ML CPJ (NOT FOR IM USE) IV PRN (22:45)
[2018-01-25] MEDS ORDERED: ZOLPIDEM TARTRATE 5MG TABLET PO PRN (22:45)
[2018-01-25] MEDS ORDERED: ACETAMINOPHEN 325MG TABLET PO PRN (22:45)
[2018-01-25] MEDS ORDERED: NITROGLYCERIN 0.4MG TABLET SL SL PRN (22:45)
[2018-01-25] MEDS ORDERED: DEXTROSE 50% WATER 50ML SYRINGE IV PRN (22:45)
[2018-01-25] MEDS ORDERED: MAGNESIUM/ALUMINUM HYDROXIDE/SIMETHICONE 30ML UDC PO PRN (22:45)
[2018-01-25] MEDS ORDERED: TRAMADOL 50MG TABLET PO PRN (22:45)
[2018-01-25] MEDS ORDERED: ENOXAPARIN 40MG/0.4ML SYR SUBCUT SCH (22:45)
[2018-01-25] MEDS ORDERED: MEROPENEM 1,000 MG in SODIUM CHLORIDE 0.9% 100 ML IV SCH (22:45)
[2018-01-26] VITALS (41 sets, daily range): BP systolic 94–139; BP diastolic 66–90
[2018-01-26] MEDS ORDERED: NOREPINEPHRINE 4 MG in DEXT 5% WATER 246 ML IV ONE (00:30)
[2018-01-26 01:16] LABS: CLARITY URINE TURBID (CLEAR); COLOR URINE YELLOW (YELLOW); KETONES URINE NEGATIVE (NEGATIVE); LEUKOCYTE ESTERASE URINE 3+ (NEGATIVE); NITRITE URINE NEGATIVE (NEGATIVE); OCCULT BLOOD URINE 2+ (NEGATIVE); PH URINE 6.5 (4.5-8.0); PROTEIN URINE 3+ (NEGATIVE); SPECIFIC GRAVITY URINE 1.017 (1.005-1.030); UROBILINOGEN URINE 0.2 E.U./dL (0.2-1.0)
[2018-01-26] MEDS ORDERED: NOREPINEPHRINE 4 MG in DEXT 5% WATER 246 ML IV PRN (03:30)
[2018-01-26 05:35] LABS: HEMATOCRIT. 21.6 % (36.0-48.0); MEAN CORPUSCULAR HEMOGLOBIN 28.4 pg (28.0-32.0); MEAN CORPUSCULAR VOLUME 89.9 fL (81.0-99.0); MEAN PLATELET VOLUME 8.3 fl (7.4-10.4); PLATELET 450 x1000/uL (130-400); RED BLOOD CELL COUNT 2.41 mill/uL (4.2-5.4); RED CELL DISTRIBUTION WIDTH 23.1 % (11.6-14.6)
[2018-01-26 05:36] LABS: CHLORIDE 129 mEq/L (98-107)
[2018-01-26 05:42] LABS: HEMOGLOBIN. 6.8 g/dL (12.0-16.0)
[2018-01-26 06:56] LABS: NUCLEATED RED BLOOD CELLS 1 /100 WBC; PLATELET ESTIMATE INCREASED
[2018-01-26] MEDS ORDERED: MEROPENEM 500 MG in SODIUM CHLORIDE 0.9% 50 ML IV SCH (08:00)
[2018-01-26] MEDS ORDERED: INSULIN LISPRO 100 UNITS/ML SUBCUT SCH (08:20)
[2018-01-26] MEDS ORDERED: BLOOD SUGAR DIAGNOSTIC STRIP TEST SCH (08:50)
[2018-01-26] MEDS: LISINOPRIL 20MG TABLET PO SCH ×2 (09:00→20:00)
[2018-01-26] MEDS: ASCORBIC ACID 500 MG TABLET PO SCH ×2 (09:59→21:06)
[2018-01-26] MEDS: FAMOTIDINE 20MG TABLET PO SCH ×2 (09:59→21:06)
[2018-01-26] MEDS: ZINC SULFATE 220 MG ( 50 ) CAPSULE PO SCH (09:59)
[2018-01-26] MEDS ORDERED: ENOXAPARIN 30MG/0.3ML SYR SUBCUT SCH (10:00)
[2018-01-26] MEDS: BLOOD SUGAR DIAGNOSTIC STRIP TEST SCH ×3 (11:23→21:00)
[2018-01-26] MEDS: SODIUM CHLORIDE 0.45% 1,000 ML IV SCH ×2 (12:15→22:08)
[2018-01-26] MEDS: INSULIN LISPRO 100 UNITS/ML SUBCUT SCH ×3 (12:16→21:00)
[2018-01-26] MEDS: ALBUMIN HUMAN 25GM/100ML (25%) IV SCH ×2 (13:42→22:07)
[2018-01-26 20:45] LABS: INR 1.4; PROTHROMBIN TIME 14.4 sec (9.1-11.1)
[2018-01-26 20:50] LABS: HEMOGLOBIN 8.4 g/dL (12.0-16.0)
[2018-01-26] MEDS: ATORVASTATIN CALCIUM 10MG TABLET PO SCH (21:06)
[2018-01-26] MEDS: MEROPENEM 500 MG in SODIUM CHLORIDE 0.9% 50 ML IV SCH (21:17)
[2018-01-27] VITALS (68 sets, daily range): BP systolic 106–150; BP diastolic 64–96
[2018-01-27] MEDS: INSULIN LISPRO 100 UNITS/ML SUBCUT SCH ×4 (05:43→23:24)
[2018-01-27] MEDS: ALBUMIN HUMAN 25GM/100ML (25%) IV SCH ×2 (05:43→21:31)
[2018-01-27] MEDS: BLOOD SUGAR DIAGNOSTIC STRIP TEST SCH ×4 (05:43→23:24)
[2018-01-27 05:55] LABS: HEMATOCRIT. 29.8 % (36.0-48.0); HEMOGLOBIN. 9.3 g/dL (12.0-16.0); MEAN CORPUSCULAR VOLUME 95.9 fL (81.0-99.0); MEAN PLATELET VOLUME 8.6 fl (7.4-10.4); PLATELET 226 x1000/uL (130-400); RED BLOOD CELL COUNT 3.11 mill/uL (4.2-5.4); RED CELL DISTRIBUTION WIDTH 20.6 % (11.6-14.6)
[2018-01-27 06:00] LABS: CHLORIDE 124 mEq/L (98-107)
[2018-01-27 07:29] LABS: NUCLEATED RED BLOOD CELLS 2 /100 WBC; PLATELET ESTIMATE NORMAL
[2018-01-27] MEDS: FAMOTIDINE 20MG TABLET PO SCH ×2 (08:16→20:35)
[2018-01-27] MEDS: ASCORBIC ACID 500 MG TABLET PO SCH ×2 (08:16→20:35)
[2018-01-27] MEDS: ZINC SULFATE 220 MG ( 50 ) CAPSULE PO SCH (08:16)
[2018-01-27] MEDS: SODIUM CHLORIDE 0.45% 1,000 ML IV SCH (08:16)
[2018-01-27 10:50] LABS: BG BASE EXCESS -14.9 mmol/L (-2.0-2.0); BG CARBOXYHEMOGLOBIN 0.2 % (0.5-1.5); BG DEOXYHEMOGLOBIN 2.4 % (0.0-5.0); BG FRACTION INSPIRED OXYGEN 28; BG HCO3 ACT 10.5 mmol/L (22.0-26.0); BG METHEMOGLOBIN 0.3 % (0.0-1.5); BG OXYGEN SATURATION 97.6 % (92.0-98.5); BG OXYHEMOGLOBIN 97.1 % (94.0-97.0); BG PCO2 23.4 mmHg (35.0-45.0); BG PH 7.269 (7.350-7.450); BG PO2 105.5 mmHg (75.0-100.0); BG SAMPLE SITE LEFT RADIAL; BG VENT MODE NASAL CANNULA
[2018-01-27] MEDS: MEROPENEM 500 MG in SODIUM CHLORIDE 0.9% 50 ML IV SCH ×2 (11:41→20:36)
[2018-01-27] MEDS ORDERED: SODIUM BICARBONATE 8.4% 1 MEQ/ML 50ML SYR IV NR (12:41)
[2018-01-27] MEDS: SODIUM BICARBONATE 100 MEQ in DEXTROSE 5% WATER 1,000 ML IV SCH ×2 (13:26→23:36)
[2018-01-27] MEDS ORDERED: SODIUM CHLORIDE 0.9% 1000ML BAG (SEPSIS BOLUS) IV NR (17:45)
[2018-01-27] MEDS ORDERED: IPRATROPIUM/ALBUTEROL 0.5-3(2.5)MG/3ML NEB HHN SCH ×2 (18:00)
[2018-01-27] MEDS: ATORVASTATIN CALCIUM 10MG TABLET PO SCH (20:35)
[2018-01-28] VITALS (49 sets, daily range): BP systolic 104–164; BP diastolic 69–103
[2018-01-28] MEDS: ALBUMIN HUMAN 25GM/100ML (25%) IV SCH ×2 (06:06→14:13)
[2018-01-28] MEDS: BLOOD SUGAR DIAGNOSTIC STRIP TEST SCH ×3 (06:06→17:58)
[2018-01-28] MEDS: INSULIN LISPRO 100 UNITS/ML SUBCUT SCH ×3 (06:07→17:58)
[2018-01-28] MEDS: SODIUM BICARBONATE 100 MEQ in DEXTROSE 5% WATER 1,000 ML IV SCH ×3 (06:51→23:21)
[2018-01-28 06:57] LABS: HEMATOCRIT. 21.7 % (36.0-48.0); HEMOGLOBIN. 7.2 g/dL (12.0-16.0); MEAN CORPUSCULAR HEMOGLOBIN 29.1 pg (28.0-32.0); MEAN CORPUSCULAR VOLUME 88.4 fL (81.0-99.0); PLATELET 270 x1000/uL (130-400); RED BLOOD CELL COUNT 2.46 mill/uL (4.2-5.4); RED CELL DISTRIBUTION WIDTH 20.3 % (11.6-14.6)
[2018-01-28 07:24] LABS: CHLORIDE 116 mEq/L (98-107)
[2018-01-28 07:37] LABS: PHOSPHORUS 1.7 mg/dL (2.5-4.9)
[2018-01-28 08:28] LABS: NUCLEATED RED BLOOD CELLS 5 /100 WBC
[2018-01-28 08:29] LABS: PLATELET ESTIMATE NORMAL
[2018-01-28] MEDS: ASCORBIC ACID 500 MG TABLET PO SCH ×2 (08:50→21:24)
[2018-01-28] MEDS: ZINC SULFATE 220 MG ( 50 ) CAPSULE PO SCH (08:50)
[2018-01-28] MEDS: MEROPENEM 500 MG in SODIUM CHLORIDE 0.9% 50 ML IV SCH ×2 (08:51→21:24)
[2018-01-28] MEDS: FAMOTIDINE 20MG TABLET PO SCH (08:51)
[2018-01-28] MEDS ORDERED: BISACODYL 10MG SUPP PR NR (09:00)
[2018-01-28] MEDS ORDERED: MAGNESIUM SULFATE 2 GM in DEXTROSE 5% WATER 50 ML IV NR (10:30)
[2018-01-28] MEDS ORDERED: POTASSIUM PHOS,M-BASIC-D-BASIC 10 MMOL in DEXT 5% WATER 246.6667 ML IV NR (11:00)
[2018-01-28 11:07] LABS: TOTAL IRON BINDING CAPACITY 44 ug/dL (250-450)
[2018-01-28 11:32] LABS: FOLIC ACID (FOLATE) SERUM 6.4 ng/mL (>5.38)
[2018-01-28] MEDS: FLUCONAZOLE 200MG TABLET PO SCH (14:13)
[2018-01-28 14:57] LABS: HEMATOCRIT 24.6 % (36.0-48.0); HEMOGLOBIN 8.2 g/dL (12.0-16.0)
[2018-01-28] MEDS ORDERED: POTASSIUM PHOS,M-BASIC-D-BASIC 20 MMOL in DEXT 5% WATER 243.3333 ML IV NR (17:00)
[2018-01-28] MEDS: THIAMINE HCL 100MG TABLET PO SCH (17:31)
[2018-01-28 20:11] LABS: HEMATOCRIT 24.8 % (36.0-48.0); HEMOGLOBIN 8.3 g/dL (12.0-16.0)
[2018-01-28] MEDS: ATORVASTATIN CALCIUM 10MG TABLET PO SCH (21:23)
[2018-01-28] MEDS: CLONIDINE 0.1MG TABLET PO PRN (21:47)
[2018-01-29] VITALS (42 sets, daily range): BP systolic 88–143; BP diastolic 59–95
[2018-01-29] MEDS: BLOOD SUGAR DIAGNOSTIC STRIP TEST SCH ×4 (00:25→18:00)
[2018-01-29] MEDS: INSULIN LISPRO 100 UNITS/ML SUBCUT SCH ×4 (00:29→18:53)
[2018-01-29 02:23] LABS: HEMATOCRIT 23.4 % (36.0-48.0); HEMOGLOBIN 7.8 g/dL (12.0-16.0)
[2018-01-29 04:58] LABS: HEMATOCRIT. 23.8 % (36.0-48.0); HEMOGLOBIN. 7.9 g/dL (12.0-16.0); MEAN CORPUSCULAR HEMOGLOBIN 29.2 pg (28.0-32.0); MEAN CORPUSCULAR VOLUME 87.4 fL (81.0-99.0); PLATELET 241 x1000/uL (130-400); RED BLOOD CELL COUNT 2.72 mill/uL (4.2-5.4)
[2018-01-29 05:03] LABS: INR 1.5; PARTIAL THROMBOPLASTIN TIME 39.6 sec (23.4-31.0); PROTHROMBIN TIME 14.9 sec (9.1-11.1)
[2018-01-29 05:10] LABS: PHOSPHORUS 3.6 mg/dL (2.5-4.9)
[2018-01-29] MEDS: SODIUM BICARBONATE 100 MEQ in DEXTROSE 5% WATER 1,000 ML IV SCH (07:39)
[2018-01-29] MEDS: MEROPENEM 500 MG in SODIUM CHLORIDE 0.9% 50 ML IV SCH ×2 (09:00→21:31)
[2018-01-29] MEDS: FAMOTIDINE 20MG TABLET PO SCH (09:00)
[2018-01-29] MEDS: ZINC SULFATE 220 MG ( 50 ) CAPSULE PO SCH (09:00)
[2018-01-29] MEDS: DEXT 5%/0.45% NACL 1000ML 1,000 ML IV SCH ×2 (09:00→18:40)
[2018-01-29] MEDS: FLUCONAZOLE 200MG TABLET PO SCH (09:00)
[2018-01-29] MEDS: ASCORBIC ACID 500 MG TABLET PO SCH ×2 (09:00→21:31)
[2018-01-29] MEDS ORDERED: BISACODYL 10MG SUPP PR PRN (09:00)
[2018-01-29] MEDS: THIAMINE HCL 100MG TABLET PO SCH (09:00)
[2018-01-29 13:21] LABS: NUCLEATED RED BLOOD CELLS 1 /100 WBC
[2018-01-29 13:22] LABS: PLATELET ESTIMATE NORMAL
[2018-01-29] MEDS ORDERED: IOHEXOL-350 100 ML BOTTLE ONE (17:00)
[2018-01-29] MEDS: ATORVASTATIN CALCIUM 10MG TABLET PO SCH (21:30)
[2018-01-29] MEDS: CLONIDINE 0.1MG TABLET PO PRN (21:31)
[2018-01-30] VITALS (36 sets, daily range): BP systolic 112–167; BP diastolic 77–109
[2018-01-30] MEDS: INSULIN LISPRO 100 UNITS/ML SUBCUT SCH ×4 (06:00→18:49)
[2018-01-30 06:07] LABS: PHOSPHORUS 2.9 mg/dL (2.5-4.9)
[2018-01-30] MEDS: BLOOD SUGAR DIAGNOSTIC STRIP TEST SCH ×4 (06:08→18:49)
[2018-01-30] MEDS: DEXT 5%/0.45% NACL 1000ML 1,000 ML IV SCH ×2 (06:18→16:57)
[2018-01-30 06:36] LABS: MEAN CORPUSCULAR VOLUME 87.9 fL (81.0-99.0); MEAN PLATELET VOLUME 9.5 fl (7.4-10.4); PLATELET 259 x1000/uL (130-400); RED BLOOD CELL COUNT 3.07 mill/uL (4.2-5.4); RED CELL DISTRIBUTION WIDTH 20.1 % (11.6-14.6)
[2018-01-30 06:48] LABS: HEMOGLOBIN. 9.2 g/dL (12.0-16.0)
[2018-01-30] MEDS: ZINC SULFATE 220 MG ( 50 ) CAPSULE PO SCH (09:00)
[2018-01-30] MEDS: FAMOTIDINE 20MG TABLET PO SCH (09:00)
[2018-01-30] MEDS: FLUCONAZOLE 200MG TABLET PO SCH (09:00)
[2018-01-30] MEDS: THIAMINE HCL 100MG TABLET PO SCH (09:00)
[2018-01-30] MEDS: ASCORBIC ACID 500 MG TABLET PO SCH ×2 (09:00→20:36)
[2018-01-30] MEDS: MEROPENEM 500 MG in SODIUM CHLORIDE 0.9% 50 ML IV SCH ×2 (10:13→20:35)
[2018-01-30 10:48] LABS: PLATELET ESTIMATE NORMAL
[2018-01-30] MEDS ORDERED: LIDOCAINE HCL/PF 1% 10 MG/ML 5ML VIAL ONE (12:11)
[2018-01-30] MEDS ORDERED: IODIXANOL 320MG/ML 200ML BOTTLE ONE (12:12)
[2018-01-30] MEDS ORDERED: MIDAZOLAM HCL 2 MG/2 ML VIAL ONE (12:12)
[2018-01-30] MEDS ORDERED: FENTANYL CITRATE/PF 50MCG/ML 2ML VIAL ONE (12:12)
[2018-01-30] MEDS ORDERED: IOHEXOL-300 100 ML BOTTLE ONE (12:58)
[2018-01-30] MEDS ORDERED: ALTEPLASE 2MG/VIAL ITC NR (13:04)
[2018-01-30] MEDS ORDERED: HEPARIN SODIUM 1,000 UNIT/1ML VIAL IV ONE (13:05)
[2018-01-30] MEDS ORDERED: PROTAMINE SULFATE 10MG/ML VIAL 5ML IV ONE (13:14)
[2018-01-30] MEDS: CLONIDINE 0.1MG TABLET PO PRN (19:00)
[2018-01-30] MEDS: ATORVASTATIN CALCIUM 10MG TABLET PO SCH (20:35)
[2018-01-31] VITALS (23 sets, daily range): BP systolic 98–184; BP diastolic 58–108
[2018-01-31] MEDS: BLOOD SUGAR DIAGNOSTIC STRIP TEST SCH ×4 (05:29→18:51)
[2018-01-31] MEDS: INSULIN LISPRO 100 UNITS/ML SUBCUT SCH ×4 (05:29→18:00)
[2018-01-31] MEDS: DEXT 5%/0.45% NACL 1000ML 1,000 ML IV SCH ×2 (05:29→13:13)
[2018-01-31 05:46] LABS: BASOPHILS % 0.3 % (0.0-2.0); EOSINOPHILS % 0.6 % (0.0-5.0); HEMATOCRIT. 25.3 % (36.0-48.0); HEMOGLOBIN. 8.5 g/dL (12.0-16.0); LYMPHOCYTES % 9.1 % (20.0-50.0); MEAN CORPUSCULAR HEMOGLOBIN 29.7 pg (28.0-32.0); MEAN CORPUSCULAR VOLUME 88.8 fL (81.0-99.0); MEAN PLATELET VOLUME 9.4 fl (7.4-10.4); MONOCYTES % 2.9 % (2.0-8.0); NEUTROPHILS % 87.1 % (40.0-76.0); PLATELET 231 x1000/uL (130-400); RED BLOOD CELL COUNT 2.85 mill/uL (4.2-5.4); RED CELL DISTRIBUTION WIDTH 20.3 % (11.6-14.6)
[2018-01-31 06:10] LABS: INR 1.3; PARTIAL THROMBOPLASTIN TIME 35.4 sec (23.4-31.0); PROTHROMBIN TIME 13.3 sec (9.1-11.1)
[2018-01-31] MEDS: FAMOTIDINE 20MG TABLET PO SCH (09:00)
[2018-01-31] MEDS: THIAMINE HCL 100MG TABLET PO SCH (09:00)
[2018-01-31] MEDS: ZINC SULFATE 220 MG ( 50 ) CAPSULE PO SCH (09:00)
[2018-01-31] MEDS: FLUCONAZOLE 200MG TABLET PO SCH (09:00)
[2018-01-31] MEDS: ASCORBIC ACID 500 MG TABLET PO SCH ×2 (09:00→21:12)
[2018-01-31] MEDS: MEROPENEM 500 MG in SODIUM CHLORIDE 0.9% 50 ML IV SCH ×2 (09:31→21:12)
[2018-01-31] MEDS ORDERED: HYDRALAZINE 20MG/ML VIAL IV NR (13:37)
[2018-01-31] MEDS: MORPHINE SULFATE 4 MG/ML CPJ (NOT FOR IM USE) IV PRN (15:57)
[2018-01-31] MEDS: ATORVASTATIN CALCIUM 10MG TABLET PO SCH (21:12)
[2018-02-01] VITALS (52 sets, daily range): BP systolic 113–169; BP diastolic 69–99
[2018-02-01] MEDS: BLOOD SUGAR DIAGNOSTIC STRIP TEST SCH ×4 (00:22→18:07)
[2018-02-01] MEDS: MORPHINE SULFATE 4 MG/ML CPJ (NOT FOR IM USE) IV PRN (01:43)
[2018-02-01] MEDS: DEXT 5%/0.45% NACL 1000ML 1,000 ML IV SCH ×2 (05:34→15:09)
[2018-02-01] MEDS: INSULIN LISPRO 100 UNITS/ML SUBCUT SCH ×4 (05:35→18:08)
[2018-02-01 06:11] LABS: PHOSPHORUS 3.2 mg/dL (2.5-4.9)
[2018-02-01 08:32] LABS: BASOPHILS % 0.2 % (0.0-2.0); EOSINOPHILS % 0.4 % (0.0-5.0); HEMATOCRIT. 23.3 % (36.0-48.0); HEMOGLOBIN. 7.6 g/dL (12.0-16.0); MEAN CORPUSCULAR HEMOGLOBIN 29.4 pg (28.0-32.0); MEAN CORPUSCULAR VOLUME 90.3 fL (81.0-99.0); MEAN PLATELET VOLUME 9.5 fl (7.4-10.4); MONOCYTES % 4.4 % (2.0-8.0); PLATELET 162 x1000/uL (130-400); RED BLOOD CELL COUNT 2.58 mill/uL (4.2-5.4); RED CELL DISTRIBUTION WIDTH 19.7 % (11.6-14.6)
[2018-02-01] MEDS: FAMOTIDINE 20MG TABLET PO SCH (08:37)
[2018-02-01] MEDS: MEROPENEM 500 MG in SODIUM CHLORIDE 0.9% 50 ML IV SCH (08:37)
[2018-02-01] MEDS: ASCORBIC ACID 500 MG TABLET PO SCH ×2 (08:37→21:51)
[2018-02-01] MEDS: ZINC SULFATE 220 MG ( 50 ) CAPSULE PO SCH (08:37)
[2018-02-01] MEDS: FLUCONAZOLE 200MG TABLET PO SCH (08:37)
[2018-02-01] MEDS ORDERED: SIMETHICONE 40 MG/0.6 ML 30ML ONE (13:40)
[2018-02-01] MEDS ORDERED: MIDAZOLAM HCL 5 MG/5 ML VIAL IV ONE (13:57)
[2018-02-01] MEDS ORDERED: SODIUM CHLORIDE 0.9% 10ML VIAL ONE (15:30)
[2018-02-01] MEDS ORDERED: MIDAZOLAM HCL 5 MG/5 ML VIAL ONE (18:35)
[2018-02-01] MEDS: ATORVASTATIN CALCIUM 10MG TABLET PO SCH (21:51)
[2018-02-01] MEDS: MEROPENEM 1,000 MG in SODIUM CHLORIDE 0.9% 100 ML IV SCH (21:53)
[2018-02-02] VITALS (46 sets, daily range): BP systolic 119–175; BP diastolic 65–101
[2018-02-02] MEDS: BLOOD SUGAR DIAGNOSTIC STRIP TEST SCH ×4 (00:42→17:59)
[2018-02-02] MEDS: CLONIDINE 0.1MG TABLET PO PRN ×3 (01:46→04:45)
[2018-02-02] MEDS: DEXT 5%/0.45% NACL 1000ML 1,000 ML IV SCH ×2 (02:05→14:30)
[2018-02-02 05:39] LABS: BASOPHILS % 0.2 % (0.0-2.0); EOSINOPHILS % 0.3 % (0.0-5.0); HEMATOCRIT. 25.6 % (36.0-48.0); HEMOGLOBIN. 8.5 g/dL (12.0-16.0); LYMPHOCYTES % 8.6 % (20.0-50.0); MEAN CORPUSCULAR HEMOGLOBIN 29.7 pg (28.0-32.0); MEAN CORPUSCULAR VOLUME 89.7 fL (81.0-99.0); MEAN PLATELET VOLUME 9.8 fl (7.4-10.4); MONOCYTES % 3.1 % (2.0-8.0); NEUTROPHILS % 87.8 % (40.0-76.0); PLATELET 305 x1000/uL (130-400); RED BLOOD CELL COUNT 2.86 mill/uL (4.2-5.4); RED CELL DISTRIBUTION WIDTH 20.3 % (11.6-14.6)
[2018-02-02] MEDS: INSULIN LISPRO 100 UNITS/ML SUBCUT SCH ×4 (06:00→17:59)
[2018-02-02 07:04] LABS: PHOSPHORUS 2.5 mg/dL (2.5-4.9)
[2018-02-02] MEDS: MEROPENEM 1,000 MG in SODIUM CHLORIDE 0.9% 100 ML IV SCH ×2 (08:47→20:58)
[2018-02-02] MEDS: ZINC SULFATE 220 MG ( 50 ) CAPSULE PO SCH (08:48)
[2018-02-02] MEDS: DOCUSATE SODIUM 100MG CAPSULE PO PRN ×2 (08:48→20:58)
[2018-02-02] MEDS: FLUCONAZOLE 200MG TABLET PO SCH (08:48)
[2018-02-02] MEDS: FAMOTIDINE 20MG TABLET PO SCH (08:48)
[2018-02-02] MEDS: ASCORBIC ACID 500 MG TABLET PO SCH ×2 (08:48→20:58)
[2018-02-02] MEDS ORDERED: POTASSIUM CHLORIDE 20MEQ TABLET SR PO NR (15:30)
[2018-02-02] MEDS ORDERED: MAGNESIUM 2 G PREMIX 50 ML IV NR (16:00)
[2018-02-02] MEDS: METOCLOPRAMIDE HCL 10MG/2ML VIAL IV SCH (20:58)
[2018-02-02] MEDS: ATORVASTATIN CALCIUM 10MG TABLET PO SCH (20:58)
[2018-02-02] MEDS: MORPHINE SULFATE 4 MG/ML CPJ (NOT FOR IM USE) IV PRN (21:01)
[2018-02-03] VITALS (47 sets, daily range): BP systolic 114–155; BP diastolic 66–101
[2018-02-03] MEDS: BLOOD SUGAR DIAGNOSTIC STRIP TEST SCH ×4 (00:33→18:16)
[2018-02-03] MEDS: INSULIN LISPRO 100 UNITS/ML SUBCUT SCH ×4 (00:40→17:37)
[2018-02-03] MEDS: MORPHINE SULFATE 4 MG/ML CPJ (NOT FOR IM USE) IV PRN ×2 (02:27→10:12)
[2018-02-03] MEDS: DEXT 5%/0.45% NACL 1000ML 1,000 ML IV SCH ×2 (04:49→17:15)
[2018-02-03 05:41] LABS: BASOPHILS % 0.5 % (0.0-2.0); EOSINOPHILS % 0.3 % (0.0-5.0); HEMATOCRIT. 24.5 % (36.0-48.0); LYMPHOCYTES % 9.2 % (20.0-50.0); MEAN CORPUSCULAR HEMOGLOBIN 29.7 pg (28.0-32.0); MEAN CORPUSCULAR VOLUME 90.5 fL (81.0-99.0); MEAN PLATELET VOLUME 8.9 fl (7.4-10.4); MONOCYTES % 4.5 % (2.0-8.0); NEUTROPHILS % 85.5 % (40.0-76.0); PLATELET 338 x1000/uL (130-400); RED CELL DISTRIBUTION WIDTH 20.3 % (11.6-14.6)
[2018-02-03 06:18] LABS: PHOSPHORUS 2.6 mg/dL (2.5-4.9)
[2018-02-03] MEDS: METOCLOPRAMIDE HCL 10MG/2ML VIAL IV SCH ×2 (07:04→14:00)
[2018-02-03] MEDS: ZINC SULFATE 220 MG ( 50 ) CAPSULE PO SCH (09:00)
[2018-02-03] MEDS: FAMOTIDINE 20MG TABLET PO SCH (10:10)
[2018-02-03] MEDS: ASCORBIC ACID 500 MG TABLET PO SCH (10:10)
[2018-02-03] MEDS: FLUCONAZOLE 200MG TABLET PO SCH (10:11)
[2018-02-03] MEDS: DOCUSATE SODIUM 100MG CAPSULE PO PRN (10:11)
== END 2018-02-03 20:27 | DRG 853 ==
LOC: ER 17:32 → MICUSO 21:33 → EDBEDREQTM 21:36 → EDBEDREQSVC 21:36 → EDBEDREQ 21:36 → CANRESERV 22:59 → EDBEDREQTM 23:00 → EDBEDREQSVC 23:00 → ENRESERV 23:03 → CANRESERV 23:03 → EDBEDREQTM 01-26 00:30 → EDBEDREQSVC 01-26 03:16 → ENRESERV 01-26 06:54 → MICUSO 01-27 02:36 → MICUNO 01-29 08:15
PROVIDERS: ADMIT Internal Medicine; ATTEND Internal Medicine
PROC: 02HV33Z Insertion of Infusion Device into Superior Vena Cava, Percutaneous Approach (ICD-10-PCS; principal; 2018-01-25)
PROC: B548ZZA Ultrasonography of Superior Vena Cava, Guidance (ICD-10-PCS; 2018-01-25)
PROC: 30233N1 Transfusion of Nonautologous Red Blood Cells into Peripheral Vein, Percutaneous Approach (ICD-10-PCS; 2018-01-26)
PROC: 037B3ZZ Dilation of Right Radial Artery, Percutaneous Approach (ICD-10-PCS; 2018-01-30)
PROC: B31H1ZZ Fluoroscopy of Right Upper Extremity Arteries using Low Osmolar Contrast (ICD-10-PCS; 2018-01-30)
PROC: 0DH63UZ Insertion of Feeding Device into Stomach, Percutaneous Approach (ICD-10-PCS; 2018-02-01)
DX: A41.9 Sepsis, unspecified organism (principal); R65.21 Severe sepsis with septic shock; N17.0 Acute kidney failure with tubular necrosis; G92 Toxic encephalopathy; E43 Unspecified severe protein-calorie malnutrition; J96.00 Acute respiratory failure, unspecified whether with hypoxia or hypercapnia; J69.0 Pneumonitis due to inhalation of food and vomit; D68.9 Coagulation defect, unspecified; B37.49 Other urogenital candidiasis; E87.0 Hyperosmolality and hypernatremia; E11.52 Type 2 diabetes mellitus with diabetic peripheral angiopathy with gangrene; I69.351 Hemiplegia and hemiparesis following cerebral infarction affecting right dominant side; Z68.1 Body mass index [BMI] 19.9 or less, adult; E87.2 Acidosis; E87.3 Alkalosis; I96 Gangrene, not elsewhere classified; N39.0 Urinary tract infection, site not specified; E11.22 Type 2 diabetes mellitus with diabetic chronic kidney disease; K21.9 Gastro-esophageal reflux disease without esophagitis; N13.9 Obstructive and reflux uropathy, unspecified; E87.6 Hypokalemia; N18.9 Chronic kidney disease, unspecified; I12.9 Hypertensive chronic kidney disease with stage 1 through stage 4 chronic kidney disease, or unspecified chronic kidney disease; I70.208 Unspecified atherosclerosis of native arteries of extremities, other extremity; D63.8 Anemia in other chronic diseases classified elsewhere; E88.09 Other disorders of plasma-protein metabolism, not elsewhere classified; M19.90 Unspecified osteoarthritis, unspecified site; B96.20 Unspecified Escherichia coli [E. coli] as the cause of diseases classified elsewhere; B96.4 Proteus (mirabilis) (morganii) as the cause of diseases classified elsewhere; E87.5 Hyperkalemia; F03.90 Unspecified dementia, unspecified severity, without behavioral disturbance, psychotic disturbance, mood disturbance, and anxiety; E86.1 Hypovolemia; R13.10 Dysphagia, unspecified; E78.5 Hyperlipidemia, unspecified; E83.42 Hypomagnesemia; E83.39 Other disorders of phosphorus metabolism; Z16.12 Extended spectrum beta lactamase (ESBL) resistance; N31.9 Neuromuscular dysfunction of bladder, unspecified; R62.7 Adult failure to thrive; Z90.710 Acquired absence of both cervix and uterus; Z87.891 Personal history of nicotine dependence; Z87.440 Personal history of urinary (tract) infections; Z87.442 Personal history of urinary calculi; Z88.1 Allergy status to other antibiotic agents; Z88.2 Allergy status to sulfonamides; Z88.8 Allergy status to other drugs, medicaments and biological substances; E78.00 Pure hypercholesterolemia, unspecified; K29.00 Acute gastritis without bleeding
CPT/HCPCS: 36415; 36600; 71045; 73206; 74018; 75710; 76700; 80048; 82010; 82270; 82375; 82550; 82607; 82728; 82746; 82805; 82962; 83540; 83550; 83605; 83735; 84100; 84134; 85014; 85018; 85049; 85347; 85384; 86850; 86900; 86920; 87077; 87106; 87186; 92610; 93005; 93922; 93923; 93971; 96361; 96365; 96366; 96368; 99291; A4216; A6261; C1725; C1760; C1769; C1893; J0360; J1644; J1815; J2185; J2250; J2270; J2405; J2543; J2720; J2765; J2997; J3010; J3370; J3475; J3490; J7030; J7040; J7050; J7060; J7070; J7620; P9016; P9047; Q9967; A4315

== ENCOUNTER 2018-05-16 11:40 | Inpatient (IN) | payer MEDICARE, MEDICAID ==
[~2018-05-16] VITALS: Ht 160 cm; Wt 51.3 kg
[2018-05-16] MEDS ORDERED: SODIUM CHLORIDE 0.9% 1000ML BAG (SEPSIS BOLUS) IV ONE (12:30)
[2018-05-16] MEDS ORDERED: LEVOFLOXACIN 750MG PREMIX 150 ML IV ONE (12:30)
[2018-05-16 13:00] LABS: HEMOGLOBIN. 10.9 g/dL (12.0-16.0); MEAN CORPUSCULAR HEMOGLOBIN 31.9 pg (28.0-32.0); MEAN CORPUSCULAR VOLUME 99.6 fL (81.0-99.0); MEAN PLATELET VOLUME 9.6 fl (7.4-10.4); PLATELET 313 x1000/uL (130-400); RED BLOOD CELL COUNT 3.42 mill/uL (4.2-5.4); RED CELL DISTRIBUTION WIDTH 14.6 % (11.6-14.6)
[2018-05-16 13:04] LABS: CHLORIDE 103 mEq/L (98-107)
[2018-05-16 13:11] LABS: INR 1.1; PROTHROMBIN TIME 11.2 sec (9.1-11.1)
[2018-05-16 13:30] LABS: PLATELET ESTIMATE NORMAL
[2018-05-16] MEDS ORDERED: VANCOMYCIN 1 G PREMIX 200 ML IV SCH (14:00)
[2018-05-16 14:20] LABS: CLARITY URINE TURBID (CLEAR); COLOR URINE YELLOW (YELLOW); KETONES URINE TRACE (NEGATIVE); LEUKOCYTE ESTERASE URINE 3+ (NEGATIVE); NITRITE URINE NEGATIVE (NEGATIVE); OCCULT BLOOD URINE 3+ (NEGATIVE); PROTEIN URINE 2+ (NEGATIVE); SPECIFIC GRAVITY URINE 1.017 (1.005-1.030); UROBILINOGEN URINE 0.2 E.U./dL (0.2-1.0)
[2018-05-16] MEDS ORDERED: DOCUSATE SODIUM 100MG CAPSULE PO PRN (15:00)
[2018-05-16] MEDS ORDERED: GUAIFENESIN 200MG/10ML SUGAR FREE UDC PO PRN (15:00)
[2018-05-16] MEDS ORDERED: CLONIDINE 0.1MG TABLET PO PRN (15:00)
[2018-05-16] MEDS ORDERED: HYDROCODONE/ACETAMINOPHEN 5/325MG TABLET PO PRN (15:00)
[2018-05-16 20:50] VITALS: BP 126/77
[2018-05-16] MEDS ORDERED: HYDROMORPHONE HCL/PF 2MG/ML CPJ IV PRN (21:00)
[2018-05-16 22:10] VITALS: BP 103/66
[2018-05-16] MEDS: SODIUM CHLORIDE 0.9% 1,000 ML IV SCH (22:40)
[2018-05-16] MEDS: ENOXAPARIN 30MG/0.3ML SYR SUBCUT SCH (22:42)
[2018-05-17] VITALS (13 sets, daily range): BP systolic 111–129; BP diastolic 66–81
[2018-05-17] MEDS ORDERED: ACET-2853 GT (00:48)
[2018-05-17] MEDS ORDERED: ATOR10TA69 NG (00:48)
[2018-05-17] MEDS ORDERED: AMIN30LI2 PO (00:48)
[2018-05-17] MEDS ORDERED: FAMO20TA8 GT (00:48)
[2018-05-17] MEDS ORDERED: FE300LUD GT (00:48)
[2018-05-17] MEDS: BLOOD SUGAR DIAGNOSTIC STRIP TEST SCH ×4 (06:06→22:33)
[2018-05-17 06:34] LABS: HEMATOCRIT. 30.7 % (36.0-48.0); HEMOGLOBIN. 9.9 g/dL (12.0-16.0); MEAN CORPUSCULAR HEMOGLOBIN 32.5 pg (28.0-32.0); MEAN CORPUSCULAR VOLUME 100.3 fL (81.0-99.0); MEAN PLATELET VOLUME 10.3 fl (7.4-10.4); PLATELET 287 x1000/uL (130-400); RED BLOOD CELL COUNT 3.06 mill/uL (4.2-5.4); RED CELL DISTRIBUTION WIDTH 14.5 % (11.6-14.6)
[2018-05-17 07:57] LABS: CHLORIDE 110 mEq/L (98-107)
[2018-05-17 08:45] LABS: PLATELET ESTIMATE NORMAL
[2018-05-17] MEDS: INSULIN LISPRO 100 UNITS/ML SUBCUT SCH ×4 (08:57→23:46)
[2018-05-17] MEDS: SODIUM CHLORIDE 0.9% 1,000 ML IV SCH (10:54)
[2018-05-17] MEDS: VANCOMYCIN 500 MG PREMIX 100 ML IV SCH (12:32)
[2018-05-17] MEDS ORDERED: LEVOFLOXACIN 250MG PREMIX 50 ML IV SCH (13:00)
[2018-05-17] MEDS ORDERED: TETANUS, DIPHTHERIA, PERTUSSIS VAC/PF 0.5ML (>7YR OLD) IM ONE (13:45)
[2018-05-17] MEDS ORDERED: MEROPENEM 1,000 MG in SODIUM CHLORIDE 0.9% 100 ML IV SCH (16:00)
[2018-05-17] MEDS: MEROPENEM 1,000 MG in SODIUM CHLORIDE 0.9% 100 ML IV SCH (17:01)
[2018-05-17] MEDS: ENOXAPARIN 30MG/0.3ML SYR SUBCUT SCH (22:30)
[2018-05-18] VITALS (12 sets, daily range): BP systolic 93–135; BP diastolic 61–77
[2018-05-18] MEDS: SODIUM CHLORIDE 0.9% 1,000 ML IV SCH (02:01)
[2018-05-18] MEDS: MEROPENEM 1,000 MG in SODIUM CHLORIDE 0.9% 100 ML IV SCH ×2 (04:56→18:00)
[2018-05-18] MEDS: BLOOD SUGAR DIAGNOSTIC STRIP TEST SCH ×4 (06:04→21:05)
[2018-05-18] MEDS: ONDANSETRON HCL 4MG/2ML INJ IV PRN (06:24)
[2018-05-18 07:44] LABS: BASOPHILS % 0.2 % (0.0-2.0); EOSINOPHILS % 1.1 % (0.0-5.0); HEMATOCRIT. 29.4 % (36.0-48.0); HEMOGLOBIN. 9.2 g/dL (12.0-16.0); LYMPHOCYTES % 7.3 % (20.0-50.0); MEAN CORPUSCULAR HEMOGLOBIN 31.6 pg (28.0-32.0); MEAN CORPUSCULAR VOLUME 101.1 fL (81.0-99.0); MEAN PLATELET VOLUME 9.9 fl (7.4-10.4); MONOCYTES % 5.3 % (2.0-8.0); NEUTROPHILS % 86.1 % (40.0-76.0); PLATELET 323 x1000/uL (130-400); RED BLOOD CELL COUNT 2.91 mill/uL (4.2-5.4); RED CELL DISTRIBUTION WIDTH 14.7 % (11.6-14.6)
[2018-05-18 07:46] LABS: CHLORIDE 123 mEq/L (98-107)
[2018-05-18] MEDS: VANCOMYCIN 500 MG PREMIX 100 ML IV SCH (08:12)
[2018-05-18] MEDS: INSULIN LISPRO 100 UNITS/ML SUBCUT SCH ×4 (08:12→21:06)
[2018-05-18] MEDS ORDERED: LIDOCAINE HCL/EPINEPHRINE 1%-EPI 1:100,000 20 ML VIAL INFIL NR (11:30)
[2018-05-18] MEDS: INSULIN GLARGINE UD 100 UNITS/ML SYR SUBCUT SCH (11:49)
[2018-05-18] MEDS: DEXTROSE 5% WATER 1,000 ML IV SCH (12:54)
[2018-05-18] MEDS: ENOXAPARIN 30MG/0.3ML SYR SUBCUT SCH (21:05)
[2018-05-19] VITALS (12 sets, daily range): BP systolic 102–145; BP diastolic 59–87
[2018-05-19] MEDS: DEXTROSE 5% WATER 1,000 ML IV SCH ×3 (01:15→23:10)
[2018-05-19] MEDS: MEROPENEM 1,000 MG in SODIUM CHLORIDE 0.9% 100 ML IV SCH ×2 (06:00→21:27)
[2018-05-19] MEDS: BLOOD SUGAR DIAGNOSTIC STRIP TEST SCH ×4 (06:39→21:05)
[2018-05-19 07:22] LABS: HEMOGLOBIN. 10.1 g/dL (12.0-16.0); MEAN CORPUSCULAR HEMOGLOBIN 32.1 pg (28.0-32.0); MEAN CORPUSCULAR VOLUME 101.6 fL (81.0-99.0); MEAN PLATELET VOLUME 9.9 fl (7.4-10.4); PLATELET 341 x1000/uL (130-400); RED BLOOD CELL COUNT 3.15 mill/uL (4.2-5.4); RED CELL DISTRIBUTION WIDTH 14.5 % (11.6-14.6)
[2018-05-19] MEDS: INSULIN LISPRO 100 UNITS/ML SUBCUT SCH ×4 (07:51→21:16)
[2018-05-19 07:57] LABS: CHLORIDE 121 mEq/L (98-107)
[2018-05-19 08:03] LABS: PHOSPHORUS 3.1 mg/dL (2.5-4.9)
[2018-05-19] MEDS: VANCOMYCIN 500 MG PREMIX 100 ML IV SCH (08:58)
[2018-05-19] MEDS: INSULIN GLARGINE UD 100 UNITS/ML SYR SUBCUT SCH (09:01)
[2018-05-19] MEDS ORDERED: REGADENOSON 0.4 MG/5 ML IV NR (12:30)
[2018-05-19 12:38] LABS: PLATELET ESTIMATE NORMAL
[2018-05-19] MEDS ORDERED: SODIUM CHLORIDE 0.9% IV SCH (14:00)
[2018-05-19] MEDS ORDERED: PAMIDRONATE DISODIUM IV SCH (14:00)
[2018-05-19] MEDS: ENOXAPARIN 30MG/0.3ML SYR SUBCUT SCH (21:18)
[2018-05-19] MEDS ORDERED: INSULIN GLARGINE UD 100 UNITS/ML SYR SUBCUT SCH (22:00)
[2018-05-20] VITALS (13 sets, daily range): BP systolic 85–151; BP diastolic 53–83
[2018-05-20] MEDS: MEROPENEM 1,000 MG in SODIUM CHLORIDE 0.9% 100 ML IV SCH ×2 (04:33→17:11)
[2018-05-20] MEDS: BLOOD SUGAR DIAGNOSTIC STRIP TEST SCH ×4 (06:50→21:34)
[2018-05-20 07:10] LABS: CHLORIDE 119 mEq/L (98-107)
[2018-05-20] MEDS: INSULIN LISPRO 100 UNITS/ML SUBCUT SCH ×4 (07:20→21:38)
[2018-05-20] MEDS: DEXTROSE 5% WATER 1,000 ML IV SCH ×3 (07:30→21:38)
[2018-05-20] MEDS: VANCOMYCIN 500 MG PREMIX 100 ML IV SCH (08:24)
[2018-05-20] MEDS: INSULIN GLARGINE UD 100 UNITS/ML SYR SUBCUT SCH ×2 (10:57→21:37)
[2018-05-20] MEDS ORDERED: REGADENOSON 0.4 MG/5 ML IV ONE (12:56)
[2018-05-20] MEDS: ENOXAPARIN 30MG/0.3ML SYR SUBCUT SCH (21:28)
[2018-05-21] VITALS (12 sets, daily range): BP systolic 115–143; BP diastolic 71–90
[2018-05-21] MEDS: DEXTROSE 5% WATER 1,000 ML IV SCH ×2 (05:59→16:50)
[2018-05-21] MEDS: MEROPENEM 1,000 MG in SODIUM CHLORIDE 0.9% 100 ML IV SCH ×2 (05:59→17:30)
[2018-05-21] MEDS: BLOOD SUGAR DIAGNOSTIC STRIP TEST SCH ×4 (06:04→21:44)
[2018-05-21] MEDS: INSULIN LISPRO 100 UNITS/ML SUBCUT SCH ×4 (06:07→21:00)
[2018-05-21 07:43] LABS: HEMATOCRIT. 30.7 % (36.0-48.0); HEMOGLOBIN. 9.9 g/dL (12.0-16.0); MEAN CORPUSCULAR VOLUME 102.6 fL (81.0-99.0); RED CELL DISTRIBUTION WIDTH 14.2 % (11.6-14.6)
[2018-05-21] MEDS: VANCOMYCIN 500 MG PREMIX 100 ML IV SCH (09:44)
[2018-05-21] MEDS: INSULIN GLARGINE UD 100 UNITS/ML SYR SUBCUT SCH ×2 (09:49→21:46)
[2018-05-21 10:00] LABS: PHOSPHORUS 2.9 mg/dL (2.5-4.9)
[2018-05-21] MEDS ORDERED: REGADENOSON 0.4 MG/5 ML IV ONE ×2 (12:15→13:00)
[2018-05-21 12:41] LABS: PLATELET 396 x1000/uL (130-400)
[2018-05-21 12:44] LABS: NUCLEATED RED BLOOD CELLS 1 /100 WBC; PLATELET ESTIMATE NORMAL
[2018-05-21] MEDS: ENOXAPARIN 30MG/0.3ML SYR SUBCUT SCH (21:44)
[2018-05-22] VITALS (12 sets, daily range): BP systolic 105–147; BP diastolic 56–87
[2018-05-22] MEDS: DEXTROSE 5% WATER 1,000 ML IV SCH ×2 (05:39→15:45)
[2018-05-22] MEDS: MEROPENEM 1,000 MG in SODIUM CHLORIDE 0.9% 100 ML IV SCH ×2 (05:49→16:30)
[2018-05-22] MEDS: BLOOD SUGAR DIAGNOSTIC STRIP TEST SCH ×4 (05:58→21:52)
[2018-05-22] MEDS: INSULIN LISPRO 100 UNITS/ML SUBCUT SCH ×4 (05:58→21:00)
[2018-05-22 06:46] LABS: HEMATOCRIT. 29.7 % (36.0-48.0); HEMOGLOBIN. 9.6 g/dL (12.0-16.0); MEAN CORPUSCULAR HEMOGLOBIN 32.4 pg (28.0-32.0); MEAN CORPUSCULAR VOLUME 100.6 fL (81.0-99.0); MEAN PLATELET VOLUME 9.1 fl (7.4-10.4); PLATELET 429 x1000/uL (130-400); RED BLOOD CELL COUNT 2.95 mill/uL (4.2-5.4); RED CELL DISTRIBUTION WIDTH 14.4 % (11.6-14.6)
[2018-05-22 07:17] LABS: PHOSPHORUS 2.8 mg/dL (2.5-4.9)
[2018-05-22] MEDS: INSULIN GLARGINE UD 100 UNITS/ML SYR SUBCUT SCH ×2 (11:49→21:53)
[2018-05-22 19:29] LABS: PLATELET ESTIMATE INCREASED
[2018-05-22] MEDS ORDERED: VANCOMYCIN 750 MG PREMIX 150 ML IV SCH (21:00)
[2018-05-22] MEDS ORDERED: VANCOMYCIN 500 MG PREMIX 100 ML IV SCH (21:00)
[2018-05-22] MEDS: ENOXAPARIN 40MG/0.4ML SYR SUBCUT SCH (21:48)
[2018-05-22] MEDS: VANCOMYCIN 750 MG PREMIX 150 ML IV SCH (21:48)
[2018-05-22] MEDS: CARVEDILOL 3.125 MG TABLET PO SCH (21:49)
[2018-05-23] VITALS (10 sets, daily range): BP systolic 91–140; BP diastolic 49–85
[2018-05-23] MEDS: BLOOD SUGAR DIAGNOSTIC STRIP TEST SCH ×4 (06:40→21:23)
[2018-05-23] MEDS: INSULIN LISPRO 100 UNITS/ML SUBCUT SCH ×4 (06:40→21:00)
[2018-05-23] MEDS: MEROPENEM 1,000 MG in SODIUM CHLORIDE 0.9% 100 ML IV SCH ×2 (06:40→17:12)
[2018-05-23] MEDS: DEXTROSE 5% WATER 1,000 ML IV SCH ×2 (06:41→21:23)
[2018-05-23 07:22] LABS: BASOPHILS % 0.5 % (0.0-2.0); EOSINOPHILS % 4.6 % (0.0-5.0); HEMOGLOBIN. 9.6 g/dL (12.0-16.0); LYMPHOCYTES % 10.5 % (20.0-50.0); MEAN CORPUSCULAR HEMOGLOBIN 32.2 pg (28.0-32.0); MEAN CORPUSCULAR VOLUME 100.3 fL (81.0-99.0); MEAN PLATELET VOLUME 9.4 fl (7.4-10.4); MONOCYTES % 5.1 % (2.0-8.0); NEUTROPHILS % 79.3 % (40.0-76.0); PLATELET 456 x1000/uL (130-400); RED BLOOD CELL COUNT 2.99 mill/uL (4.2-5.4); RED CELL DISTRIBUTION WIDTH 14.3 % (11.6-14.6)
[2018-05-23 08:36] LABS: CHLORIDE 111 mEq/L (98-107)
[2018-05-23 08:54] LABS: LDL CHOLESTEROL 82 mg/dL (5-100); PHOSPHORUS 3.1 mg/dL (2.5-4.9)
[2018-05-23 08:56] LABS: HDL CHOLESTEROL 30 mg/dL (40-59)
[2018-05-23] MEDS: CARVEDILOL 3.125 MG TABLET PO SCH ×2 (09:25→21:25)
[2018-05-23] MEDS: INSULIN GLARGINE UD 100 UNITS/ML SYR SUBCUT SCH ×2 (10:00→21:39)
[2018-05-23] MEDS: ENOXAPARIN 40MG/0.4ML SYR SUBCUT SCH (21:00)
[2018-05-24] VITALS: BP 137/86
[2018-05-24] MEDS: DEXTROSE 50% WATER 50ML SYRINGE IV PRN (05:19)
[2018-05-24] MEDS: BLOOD SUGAR DIAGNOSTIC STRIP TEST SCH ×4 (05:20→20:55)
[2018-05-24] MEDS: INSULIN LISPRO 100 UNITS/ML SUBCUT SCH ×4 (05:20→20:45)
[2018-05-24] MEDS: MEROPENEM 1,000 MG in SODIUM CHLORIDE 0.9% 100 ML IV SCH ×2 (05:21→17:21)
[2018-05-24] MEDS ORDERED: PROPOFOL 200MG/20ML VIAL IV ONE (07:22)
[2018-05-24] MEDS ORDERED: MIDAZOLAM HCL 2 MG/2 ML VIAL ONE (07:22)
[2018-05-24] MEDS ORDERED: FENTANYL CITRATE/PF 50MCG/ML 2ML VIAL ONE (07:22)
[2018-05-24 07:33] LABS: BASOPHILS % 0.4 % (0.0-2.0); EOSINOPHILS % 4.7 % (0.0-5.0); HEMATOCRIT. 29.1 % (36.0-48.0); HEMOGLOBIN. 9.5 g/dL (12.0-16.0); LYMPHOCYTES % 9.1 % (20.0-50.0); MEAN CORPUSCULAR HEMOGLOBIN 32.4 pg (28.0-32.0); MEAN CORPUSCULAR VOLUME 99.7 fL (81.0-99.0); MEAN PLATELET VOLUME 8.8 fl (7.4-10.4); MONOCYTES % 6.6 % (2.0-8.0); NEUTROPHILS % 79.2 % (40.0-76.0); PLATELET 485 x1000/uL (130-400); RED BLOOD CELL COUNT 2.92 mill/uL (4.2-5.4); RED CELL DISTRIBUTION WIDTH 14.2 % (11.6-14.6)
[2018-05-24 07:38] LABS: CHLORIDE 107 mEq/L (98-107)
[2018-05-24 07:51] LABS: PHOSPHORUS 3.1 mg/dL (2.5-4.9)
[2018-05-24] MEDS ORDERED: BUPIVACAINE/EPINEPH/PF 0.25%/0.0005 10ML ONE (07:54)
[2018-05-24] MEDS ORDERED: DEXAMETHASONE 4MG/ML 1ML VIAL ONE (07:55)
[2018-05-24] MEDS ORDERED: LIDOCAINE HCL 1% 20ML VIAL (Pyxis) INJ ONE (07:55)
[2018-05-24] MEDS ORDERED: ONDANSETRON HCL 4MG/2ML INJ ONE (07:55)
[2018-05-24] MEDS: CARVEDILOL 3.125 MG TABLET PO SCH ×2 (08:17→20:41)
[2018-05-24] MEDS ORDERED: NORMAL SALINE 0.9% 10 ML SYR ONE (08:25)
[2018-05-24] MEDS ORDERED: BACITRACIN 15GM TUBE TOP ONE (08:25)
[2018-05-24] MEDS ORDERED: BACITRACIN 50,000 UNITS/VIAL ONE (08:25)
[2018-05-24] MEDS ORDERED: LABETALOL HCL 20MG/4ML CARPUJECT IV PRN (08:30)
[2018-05-24] MEDS ORDERED: MEPERIDINE HCL/PF 25MG/ML CPJ IV PRN (08:30)
[2018-05-24] MEDS ORDERED: HYDROMORPHONE HCL/PF 2MG/ML CPJ IV PRN (08:30)
[2018-05-24] MEDS ORDERED: ONDANSETRON HCL 4MG/2ML INJ IV PRN (08:30)
[2018-05-24] MEDS: INSULIN GLARGINE UD 100 UNITS/ML SYR SUBCUT SCH (10:00)
[2018-05-24] MEDS: VANCOMYCIN 750 MG PREMIX 150 ML IV SCH (10:00)
[2018-05-24] MEDS ORDERED: INSULIN GLARGINE UD 100 UNITS/ML SYR SUBCUT SCH (10:00)
[2018-05-24 12:00] VITALS: BP 115/75
[2018-05-24] MEDS: DEXTROSE 5% WATER 1,000 ML IV SCH (12:19)
[2018-05-24 14:00] VITALS: BP 119/86
[2018-05-24 15:53] VITALS: BP 147/87
[2018-05-24 17:38] VITALS: BP 147/85
[2018-05-24] MEDS: ACETAMINOPHEN 325MG TABLET PO PRN (20:41)
[2018-05-24] MEDS: ENOXAPARIN 40MG/0.4ML SYR SUBCUT SCH (20:42)
[2018-05-24 22:30] VITALS: BP 115/63
[2018-05-25 04:00] VITALS: BP 129/58
[2018-05-25] MEDS: MEROPENEM 1,000 MG in SODIUM CHLORIDE 0.9% 100 ML IV SCH (06:22)
[2018-05-25] MEDS: BLOOD SUGAR DIAGNOSTIC STRIP TEST SCH ×4 (06:27→21:39)
[2018-05-25] MEDS: INSULIN LISPRO 100 UNITS/ML SUBCUT SCH ×4 (07:38→21:00)
[2018-05-25 08:00] VITALS: BP 117/58
[2018-05-25] MEDS: DEXTROSE 5% WATER 1,000 ML IV SCH ×2 (08:22→17:53)
[2018-05-25] MEDS: DIPHENHYDRAMINE 50MG/ML VIAL IV PRN ×2 (09:25→15:44)
[2018-05-25] MEDS: CARVEDILOL 3.125 MG TABLET PO SCH ×2 (09:26→21:38)
[2018-05-25] MEDS: INSULIN GLARGINE UD 100 UNITS/ML SYR SUBCUT SCH (09:52)
[2018-05-25 12:00] VITALS: BP 126/68
[2018-05-25 16:00] VITALS: BP 118/70
[2018-05-25 16:39] LABS: BASOPHILS % 0.7 % (0.0-2.0); HEMATOCRIT. 26.5 % (36.0-48.0); HEMOGLOBIN. 8.7 g/dL (12.0-16.0); LYMPHOCYTES % 11.1 % (20.0-50.0); MEAN CORPUSCULAR HEMOGLOBIN 33.1 pg (28.0-32.0); MEAN CORPUSCULAR VOLUME 100.3 fL (81.0-99.0); MEAN PLATELET VOLUME 8.5 fl (7.4-10.4); MONOCYTES % 5.5 % (2.0-8.0); NEUTROPHILS % 78.7 % (40.0-76.0); PLATELET 484 x1000/uL (130-400); RED BLOOD CELL COUNT 2.64 mill/uL (4.2-5.4); RED CELL DISTRIBUTION WIDTH 13.9 % (11.6-14.6)
[2018-05-25 17:02] LABS: PHOSPHORUS 2.8 mg/dL (2.5-4.9)
[2018-05-25 20:00] VITALS: BP 102/58
[2018-05-25] MEDS: ENOXAPARIN 40MG/0.4ML SYR SUBCUT SCH (21:39)
[2018-05-26] VITALS: BP 109/55
[2018-05-26] MEDS: METOCLOPRAMIDE HCL 10MG/2ML VIAL IV SCH ×5 (00:50→23:31)
[2018-05-26 04:00] VITALS: BP 96/53
[2018-05-26] MEDS: BLOOD SUGAR DIAGNOSTIC STRIP TEST SCH ×4 (06:43→20:51)
[2018-05-26 06:55] LABS: BASOPHILS % 0.5 % (0.0-2.0); EOSINOPHILS % 4.5 % (0.0-5.0); HEMOGLOBIN. 8.7 g/dL (12.0-16.0); LYMPHOCYTES % 14.4 % (20.0-50.0); MEAN CORPUSCULAR HEMOGLOBIN 32.6 pg (28.0-32.0); MEAN CORPUSCULAR VOLUME 100.7 fL (81.0-99.0); MEAN PLATELET VOLUME 8.3 fl (7.4-10.4); MONOCYTES % 4.1 % (2.0-8.0); NEUTROPHILS % 76.5 % (40.0-76.0); PLATELET 511 x1000/uL (130-400); RED BLOOD CELL COUNT 2.68 mill/uL (4.2-5.4); RED CELL DISTRIBUTION WIDTH 14.3 % (11.6-14.6)
[2018-05-26 07:16] LABS: PHOSPHORUS 2.4 mg/dL (2.5-4.9)
[2018-05-26] MEDS: INSULIN LISPRO 100 UNITS/ML SUBCUT SCH ×4 (07:50→20:51)
[2018-05-26 08:39] VITALS: BP 98/56
[2018-05-26] MEDS: CARVEDILOL 3.125 MG TABLET PO SCH ×2 (09:00→20:51)
[2018-05-26] MEDS: INSULIN GLARGINE UD 100 UNITS/ML SYR SUBCUT SCH (10:29)
[2018-05-26] MEDS: DIPHENHYDRAMINE 50MG/ML VIAL IV PRN (10:31)
[2018-05-26 12:25] VITALS: BP 103/61
[2018-05-26 16:17] VITALS: BP 126/54
[2018-05-26] MEDS: DEXTROSE 50% WATER 50ML SYRINGE IV PRN (17:34)
[2018-05-26 20:10] VITALS: BP 152/62
[2018-05-26] MEDS: ENOXAPARIN 40MG/0.4ML SYR SUBCUT SCH (20:51)
[2018-05-26] MEDS: DEXTROSE 5% WATER 1,000 ML IV SCH (23:31)
[2018-05-27] VITALS: BP 130/64
[2018-05-27 04:00] VITALS: BP 150/51
[2018-05-27] MEDS: METOCLOPRAMIDE HCL 10MG/2ML VIAL IV SCH ×3 (05:51→18:04)
[2018-05-27] MEDS: BLOOD SUGAR DIAGNOSTIC STRIP TEST SCH ×4 (06:55→21:21)
[2018-05-27] MEDS: INSULIN LISPRO 100 UNITS/ML SUBCUT SCH ×4 (07:50→21:21)
[2018-05-27 08:00] VITALS: BP 126/64
[2018-05-27] MEDS: INSULIN GLARGINE UD 100 UNITS/ML SYR SUBCUT SCH (09:06)
[2018-05-27] MEDS: CARVEDILOL 3.125 MG TABLET PO SCH ×2 (09:09→21:04)
[2018-05-27 12:00] VITALS: BP 142/72
[2018-05-27 16:00] VITALS: BP 145/70
[2018-05-27 20:00] VITALS: BP 141/68
[2018-05-27] MEDS: ENOXAPARIN 40MG/0.4ML SYR SUBCUT SCH (21:01)
[2018-05-27] MEDS: ACETAMINOPHEN 325MG TABLET PO PRN (21:02)
[2018-05-27] MEDS: ONDANSETRON HCL 4MG/2ML INJ IV PRN (21:18)
[2018-05-27] MEDS: DEXTROSE 5% WATER 1,000 ML IV SCH (21:18)
[2018-05-28] VITALS: BP 112/55
[2018-05-28] MEDS: METOCLOPRAMIDE HCL 10MG/2ML VIAL IV SCH ×4 (00:20→19:29)
[2018-05-28] MEDS: DIPHENHYDRAMINE 50MG/ML VIAL IV PRN (00:20)
[2018-05-28 04:00] VITALS: BP 145/72
[2018-05-28 06:05] LABS: BASOPHILS % 0.4 % (0.0-2.0); EOSINOPHILS % 1.2 % (0.0-5.0); HEMATOCRIT. 28.1 % (36.0-48.0); HEMOGLOBIN. 9.4 g/dL (12.0-16.0); LYMPHOCYTES % 13.7 % (20.0-50.0); MEAN CORPUSCULAR VOLUME 99.1 fL (81.0-99.0); MONOCYTES % 3.8 % (2.0-8.0); NEUTROPHILS % 80.9 % (40.0-76.0); PLATELET 485 x1000/uL (130-400); RED BLOOD CELL COUNT 2.84 mill/uL (4.2-5.4); RED CELL DISTRIBUTION WIDTH 14.4 % (11.6-14.6)
[2018-05-28] MEDS: ACETAMINOPHEN 325MG TABLET PO PRN (06:36)
[2018-05-28] MEDS: INSULIN LISPRO 100 UNITS/ML SUBCUT SCH ×4 (07:50→21:00)
[2018-05-28] MEDS: BLOOD SUGAR DIAGNOSTIC STRIP TEST SCH ×4 (07:53→21:00)
[2018-05-28 08:00] VITALS: BP 118/69
[2018-05-28] MEDS: CARVEDILOL 3.125 MG TABLET PO SCH ×2 (09:32→21:00)
[2018-05-28 12:00] VITALS: BP 123/69
[2018-05-28] MEDS: INSULIN GLARGINE UD 100 UNITS/ML SYR SUBCUT SCH (12:52)
[2018-05-28 16:00] VITALS: BP 123/64
[2018-05-28] MEDS: ENOXAPARIN 40MG/0.4ML SYR SUBCUT SCH (21:00)
[2018-05-29] VITALS: BP 145/69
[2018-05-29] MEDS: DIPHENHYDRAMINE 50MG/ML VIAL IV PRN ×3 (00:07→16:25)
[2018-05-29] MEDS: METOCLOPRAMIDE HCL 10MG/2ML VIAL IV SCH ×5 (00:07→23:30)
[2018-05-29 04:00] VITALS: BP 141/66
[2018-05-29] MEDS: BLOOD SUGAR DIAGNOSTIC STRIP TEST SCH ×4 (06:39→20:56)
[2018-05-29] MEDS: INSULIN LISPRO 100 UNITS/ML SUBCUT SCH ×4 (07:50→20:57)
[2018-05-29 08:00] VITALS: BP 94/52
[2018-05-29] MEDS: DEXTROSE 5% WATER 1,000 ML IV SCH (09:40)
[2018-05-29] MEDS: CARVEDILOL 3.125 MG TABLET PO SCH ×2 (09:40→21:03)
[2018-05-29] MEDS: INSULIN GLARGINE UD 100 UNITS/ML SYR SUBCUT SCH (13:53)
[2018-05-29 16:00] VITALS: BP 123/78
[2018-05-29 20:48] VITALS: BP 137/75
[2018-05-29] MEDS: ENOXAPARIN 40MG/0.4ML SYR SUBCUT SCH (21:03)
[2018-05-30] VITALS (7 sets, daily range): BP systolic 20–144; BP diastolic 63–138
[2018-05-30] MEDS: METOCLOPRAMIDE HCL 10MG/2ML VIAL IV SCH ×3 (06:00→18:07)
[2018-05-30] MEDS: BLOOD SUGAR DIAGNOSTIC STRIP TEST SCH ×3 (06:46→18:05)
[2018-05-30] MEDS: INSULIN LISPRO 100 UNITS/ML SUBCUT SCH ×3 (09:47→17:50)
[2018-05-30] MEDS: CARVEDILOL 3.125 MG TABLET PO SCH (09:49)
[2018-05-30] MEDS: DEXTROSE 5% WATER 1,000 ML IV SCH (09:49)
[2018-05-30] MEDS: INSULIN GLARGINE UD 100 UNITS/ML SYR SUBCUT SCH (09:51)
[2018-05-30] MEDS: DIPHENHYDRAMINE 50MG/ML VIAL IV PRN (16:50)
== END 2018-05-30 19:09 | DRG 853 ==
LOC: ER 11:49 → 3WST 13:39 → EDBEDREQ 13:52 → EDBEDREQTM 13:52 → ENRESERV 19:35 → 6WST 05-24 22:30
PROVIDERS: ADMIT Hospitalist; ATTEND Hospitalist
PROC: 4A043B0 Measurement of Venous Pressure, Central, Percutaneous Approach (ICD-10-PCS; 2018-05-16)
PROC: 02HV33Z Insertion of Infusion Device into Superior Vena Cava, Percutaneous Approach (ICD-10-PCS; 2018-05-23)
PROC: B548ZZA Ultrasonography of Superior Vena Cava, Guidance (ICD-10-PCS; 2018-05-23)
PROC: 0X6 Anatomical Regions, Upper Extremities, Detachment (ICD-10-PCS; principal; 2018-05-24)
PROC: 0X6 Anatomical Regions, Upper Extremities, Detachment (ICD-10-PCS; 2018-05-24)
PROC: 0X6J0ZC Detachment at Right Hand, Partial 3rd Ray, Open Approach (ICD-10-PCS; 2018-05-24)
PROC: 0X6 Anatomical Regions, Upper Extremities, Detachment (ICD-10-PCS; 2018-05-24)
PROC: 0X6 Anatomical Regions, Upper Extremities, Detachment (ICD-10-PCS; 2018-05-24)
DX: A41.9 Sepsis, unspecified organism (principal); E43 Unspecified severe protein-calorie malnutrition; E11.52 Type 2 diabetes mellitus with diabetic peripheral angiopathy with gangrene; I69.351 Hemiplegia and hemiparesis following cerebral infarction affecting right dominant side; E87.0 Hyperosmolality and hypernatremia; K94.23 Gastrostomy malfunction; N17.9 Acute kidney failure, unspecified; I31.3 Pericardial effusion (noninflammatory); I42.9 Cardiomyopathy, unspecified; N13.6 Pyonephrosis; B96.20 Unspecified Escherichia coli [E. coli] as the cause of diseases classified elsewhere; D64.9 Anemia, unspecified; E11.65 Type 2 diabetes mellitus with hyperglycemia; E83.52 Hypercalcemia; F03.90 Unspecified dementia, unspecified severity, without behavioral disturbance, psychotic disturbance, mood disturbance, and anxiety; E86.0 Dehydration; J44.9 Chronic obstructive pulmonary disease, unspecified; M19.90 Unspecified osteoarthritis, unspecified site; N18.3 Chronic kidney disease, stage 3 (moderate); L89.610 Pressure ulcer of right heel, unstageable; E11.22 Type 2 diabetes mellitus with diabetic chronic kidney disease; I12.9 Hypertensive chronic kidney disease with stage 1 through stage 4 chronic kidney disease, or unspecified chronic kidney disease; I99.8 Other disorder of circulatory system; R13.10 Dysphagia, unspecified; L97.529 Non-pressure chronic ulcer of other part of left foot with unspecified severity; Y83.8 Other surgical procedures as the cause of abnormal reaction of the patient, or of later complication, without mention of misadventure at the time of the procedure; E11.621 Type 2 diabetes mellitus with foot ulcer; E11.42 Type 2 diabetes mellitus with diabetic polyneuropathy; N31.9 Neuromuscular dysfunction of bladder, unspecified; E78.5 Hyperlipidemia, unspecified; Z87.442 Personal history of urinary calculi; Z87.891 Personal history of nicotine dependence; Z90.710 Acquired absence of both cervix and uterus; Z68.20 Body mass index [BMI] 20.0-20.9, adult; Z88.2 Allergy status to sulfonamides; Z88.0 Allergy status to penicillin; Z88.8 Allergy status to other drugs, medicaments and biological substances; Z79.899 Other long term (current) drug therapy; Y92.89 Other specified places as the place of occurrence of the external cause
CPT/HCPCS: 36415; 36569; 71045; 73130; 76937; 78452; 80048; 80061; 80202; 82040; 82270; 82330; 82962; 83605; 83735; 83880; 83970; 84100; 84134; 84145; 84443; 84484; 87077; 87186; 88305; 88311; 90715; 92610; 93005; 93017; 93306; 93970; 96365; 96366; 96367; 97163; 99291; A6261; A9500; C1725; J0171; J1100; J1200; J1650; J1815; J1956; J2185; J2250; J2405; J2430; J2704; J2765; J2785; J3010; J3370; J3490; J7030; J7040; J7042; J7050; J7070; A4315

== ENCOUNTER 2019-08-14 22:47 | Inpatient (IN) | payer MEDICARE, MEDICAID ==
[~2019-08-14] VITALS: Ht 172.7 cm; Wt 64.9 kg
[~2019-08-14 22:47] MED LIST: ACET650T37 GT; AMIN30LI2 PO; ATOR10TA69 NG; FAMO20TA8 GT; FE300LUD GT
[2019-08-14] MEDS ORDERED: LEVOFLOXACIN 750MG PREMIX 150 ML IV ONE (23:15)
[2019-08-14] MEDS ORDERED: SODIUM CHLORIDE 0.9% 1000ML BAG (SEPSIS BOLUS) IV ONE (23:15)
[2019-08-14] MEDS ORDERED: AZITHROMYCIN 500 MG in DEXT 5% WATER 250 ML IV SCH (23:45)
[2019-08-14] MEDS ORDERED: MAGNESIUM/ALUMINUM HYDROXIDE/SIMETHICONE 30ML UDC PO PRN (23:45)
[2019-08-14] MEDS ORDERED: GUAIFENESIN 200MG/10ML SUGAR FREE UDC PO PRN (23:45)
[2019-08-14] MEDS ORDERED: DOCUSATE SODIUM 100MG CAPSULE PO PRN (23:45)
[2019-08-14] MEDS ORDERED: PIPERACILLIN/TAZ 3.375G PREMIX 50 ML IV SCH (23:45)
[2019-08-14] MEDS ORDERED: ZOLPIDEM TARTRATE 5MG TABLET PO PRN (23:45)
[2019-08-14] MEDS ORDERED: ONDANSETRON HCL 4MG/2ML INJ IV PRN (23:45)
[2019-08-14] MEDS ORDERED: TRAMADOL 50MG TABLET PO PRN (23:45)
[2019-08-14] MEDS ORDERED: IPRATROPIUM/ALBUTEROL 0.5-3(2.5)MG/3ML NEB ORI PRN (23:45)
[2019-08-14] MEDS ORDERED: ENOXAPARIN 40MG/0.4ML SYR SUBCUT SCH (23:45)
[2019-08-15 00:15] LABS: BASOPHILS % 0.7 % (0.0-2.0); EOSINOPHILS % 0.2 % (0.0-5.0); HEMATOCRIT. 34.9 % (36.0-48.0); HEMOGLOBIN. 11.4 g/dL (12.0-16.0); LYMPHOCYTES % 10.7 % (20.0-50.0); MEAN CORPUSCULAR HEMOGLOBIN 32.6 pg (28.0-32.0); MEAN CORPUSCULAR VOLUME 99.5 fL (81.0-99.0); MEAN PLATELET VOLUME 10.8 fl (7.4-10.4); MONOCYTES % 5.5 % (2.0-8.0); NEUTROPHILS % 82.9 % (40.0-76.0); PLATELET 340 x1000/uL (130-400); RED CELL DISTRIBUTION WIDTH 15.2 % (11.6-14.6)
[2019-08-15 00:24] LABS: CHLORIDE 106 mEq/L (98-107)
[2019-08-15 00:25] LABS: PROTHROMBIN TIME 10.7 sec (9.6-11.0)
[2019-08-15 00:34] LABS: BG BASE EXCESS 1.1 mmol/L (-2.0-2.0); BG CARBOXYHEMOGLOBIN 0.3 % (0.5-1.5); BG DEOXYHEMOGLOBIN 2.6 % (0.0-5.0); BG FRACTION INSPIRED OXYGEN 21; BG HCO3 ACT 24.9 mmol/L (22.0-26.0); BG METHEMOGLOBIN 0.2 % (0.0-1.5); BG OXYGEN SATURATION 97.4 % (92.0-98.5); BG OXYHEMOGLOBIN 96.9 % (94.0-97.0); BG PCO2 36.7 mmHg (35.0-45.0); BG PO2 101.9 mmHg (75.0-100.0); BG SAMPLE SITE LEFT RADIAL; BG TOTAL HEMOGLOBIN 10.9 g/dL (12.0-18.0); BG VENT MODE ROOM AIR
[2019-08-15 00:49] LABS: LDL CHOLESTEROL 120 mg/dL (5-100)
[2019-08-15 00:50] LABS: HDL CHOLESTEROL 46 mg/dL (40-59)
[2019-08-15] MEDS: ACETAMINOPHEN 325MG TABLET PO PRN ×2 (01:00→17:49)
[2019-08-15] MEDS ORDERED: AZITHROMYCIN 500 MG in DEXT 5% WATER 250 ML IV SCH (01:00)
[2019-08-15 01:21] LABS: CLARITY URINE TURBID (CLEAR); COLOR URINE YELLOW (YELLOW); KETONES URINE NEGATIVE (NEGATIVE); LEUKOCYTE ESTERASE URINE 3+ (NEGATIVE); NITRITE URINE NEGATIVE (NEGATIVE); OCCULT BLOOD URINE 3+ (NEGATIVE); PROTEIN URINE 3+ (NEGATIVE); SPECIFIC GRAVITY URINE 1.018 (1.005-1.030); UROBILINOGEN URINE 0.2 E.U./dL (0.2-1.0)
[2019-08-15] MEDS ORDERED: PIPERACILLIN/TAZOBACTAM 2.25 G in DEXTROSE 5% WATER 50 ML IV SCH (02:00)
[2019-08-15] MEDS ORDERED: FAMOTIDINE 20MG TABLET PO SCH (09:00)
[2019-08-15 12:19] VITALS: BP 163/83
[2019-08-15 12:44] VITALS: BP 163/83
[2019-08-15] MEDS ORDERED: INSULIN GLARGINE UD 100 UNITS/ML SYR SUBCUT SCH (13:00)
[2019-08-15] MEDS: ASPIRIN 325MG EC TABLET PO SCH (13:21)
[2019-08-15] MEDS: CLOPIDOGREL 75MG TABLET PO SCH (13:22)
[2019-08-15] MEDS: ZINC SULFATE 220 MG ( 50 ) CAPSULE PO SCH (13:22)
[2019-08-15] MEDS: GUAIFENESIN/DM 600MG/30MG ER TAB 12HR PO SCH ×2 (13:22→22:37)
[2019-08-15] MEDS: FAMOTIDINE 20MG TABLET PO SCH (13:22)
[2019-08-15] MEDS: ASCORBIC ACID 500 MG TABLET PO SCH ×2 (13:22→22:37)
[2019-08-15] MEDS: ENOXAPARIN 30MG/0.3ML SYR SUBCUT SCH (13:23)
[2019-08-15] MEDS ORDERED: VANCOMYCIN 1250MG in DEXTROSE 5% WATER 250ML IV SCH (14:00)
[2019-08-15] MEDS: PIPERACILLIN/TAZOBACTAM 2.25 G in DEXTROSE 5% WATER 50 ML IV SCH ×2 (14:13→22:33)
[2019-08-15 16:00] VITALS: BP 157/76
[2019-08-15] MEDS: BLOOD SUGAR DIAGNOSTIC STRIP TEST SCH ×2 (16:46→21:00)
[2019-08-15] MEDS: INSULIN LISPRO 100 UNITS/ML SUBCUT SCH ×2 (17:06→22:43)
[2019-08-15 20:00] VITALS: BP 139/74
[2019-08-15] MEDS: AZITHROMYCIN 250 MG in DEXT 5% WATER 250 ML IV SCH (22:38)
[2019-08-16] VITALS: BP 125/60
[2019-08-16] MEDS: PIPERACILLIN/TAZOBACTAM 2.25 G in DEXTROSE 5% WATER 50 ML IV SCH ×4 (01:13→22:16)
[2019-08-16 04:00] VITALS: BP 123/60
[2019-08-16] MEDS: BLOOD SUGAR DIAGNOSTIC STRIP TEST SCH ×4 (06:41→21:18)
[2019-08-16 08:00] VITALS: BP 181/80
[2019-08-16] MEDS: ASPIRIN 325MG EC TABLET PO SCH (08:05)
[2019-08-16] MEDS: CLOPIDOGREL 75MG TABLET PO SCH (08:05)
[2019-08-16] MEDS: ENOXAPARIN 30MG/0.3ML SYR SUBCUT SCH (08:05)
[2019-08-16] MEDS: ZINC SULFATE 220 MG ( 50 ) CAPSULE PO SCH (08:05)
[2019-08-16] MEDS: ASCORBIC ACID 500 MG TABLET PO SCH ×2 (08:05→21:17)
[2019-08-16] MEDS: FAMOTIDINE 20MG TABLET PO SCH (08:05)
[2019-08-16] MEDS: GUAIFENESIN/DM 600MG/30MG ER TAB 12HR PO SCH ×2 (08:05→21:17)
[2019-08-16] MEDS: INSULIN LISPRO 100 UNITS/ML SUBCUT SCH ×4 (08:06→21:39)
[2019-08-16 12:05] VITALS: BP 166/78
[2019-08-16] MEDS: INSULIN GLARGINE UD 100 UNITS/ML SYR SUBCUT SCH (12:16)
[2019-08-16] MEDS ORDERED: FUROSEMIDE 40MG/4ML VIAL IVP NR (15:15)
[2019-08-16 16:00] VITALS: BP 172/80
[2019-08-16] MEDS: CLONIDINE 0.1MG TABLET PO PRN (17:11)
[2019-08-16 20:00] VITALS: BP 140/64
[2019-08-16] MEDS: AZITHROMYCIN 250 MG in DEXT 5% WATER 250 ML IV SCH (21:17)
[2019-08-16] MEDS: ACETAMINOPHEN 325MG TABLET PO PRN (22:16)
[2019-08-17] VITALS: BP 123/50
[2019-08-17 04:00] VITALS: BP 143/71
[2019-08-17] MEDS: ACETAMINOPHEN 325MG TABLET PO PRN (04:05)
[2019-08-17] MEDS: PIPERACILLIN/TAZOBACTAM 2.25 G in DEXTROSE 5% WATER 50 ML IV SCH ×3 (05:24→21:33)
[2019-08-17] MEDS: BLOOD SUGAR DIAGNOSTIC STRIP TEST SCH ×4 (06:27→21:34)
[2019-08-17] MEDS: INSULIN LISPRO 100 UNITS/ML SUBCUT SCH ×4 (06:32→21:56)
[2019-08-17 08:00] VITALS: BP 141/79
[2019-08-17] MEDS: ASCORBIC ACID 500 MG TABLET PO SCH ×2 (09:31→21:34)
[2019-08-17] MEDS: ASPIRIN 325MG EC TABLET PO SCH (09:31)
[2019-08-17] MEDS: CLOPIDOGREL 75MG TABLET PO SCH (09:31)
[2019-08-17] MEDS: GUAIFENESIN/DM 600MG/30MG ER TAB 12HR PO SCH ×2 (09:31→21:34)
[2019-08-17] MEDS: FAMOTIDINE 20MG TABLET PO SCH (09:31)
[2019-08-17] MEDS: ENOXAPARIN 30MG/0.3ML SYR SUBCUT SCH (10:40)
[2019-08-17] MEDS: INSULIN GLARGINE UD 100 UNITS/ML SYR SUBCUT SCH (10:41)
[2019-08-17 12:00] VITALS: BP 118/89
[2019-08-17] MEDS: ZINC SULFATE 220 MG ( 50 ) CAPSULE PO SCH (12:35)
[2019-08-17] MEDS: CLONIDINE 0.1MG TABLET PO PRN (12:57)
[2019-08-17 16:00] VITALS: BP 156/83
[2019-08-17 20:00] VITALS: BP_SYST 155; BP_SYST 177; BP_DIAS 84; BP_DIAS 92
[2019-08-17] MEDS: AZITHROMYCIN 250 MG in DEXT 5% WATER 250 ML IV SCH (21:34)
[2019-08-18] VITALS: BP_SYST 155; BP_SYST 177; BP_DIAS 84; BP_DIAS 92
[2019-08-18 04:00] VITALS: BP 162/85
[2019-08-18 05:17] LABS: CHLORIDE 111 mEq/L (98-107)
[2019-08-18 05:28] LABS: CREATINE KINASE MB FRACTION < 1.0 ng/mL (0.5-3.6)
[2019-08-18] MEDS: BLOOD SUGAR DIAGNOSTIC STRIP TEST SCH ×4 (05:38→21:00)
[2019-08-18] MEDS: PIPERACILLIN/TAZOBACTAM 2.25 G in DEXTROSE 5% WATER 50 ML IV SCH ×3 (05:39→21:17)
[2019-08-18 06:04] LABS: HEMATOCRIT. 29.5 % (36.0-48.0); HEMOGLOBIN. 9.5 g/dL (12.0-16.0); MEAN CORPUSCULAR HEMOGLOBIN 32.2 pg (28.0-32.0); MEAN CORPUSCULAR VOLUME 99.7 fL (81.0-99.0); MEAN PLATELET VOLUME 10.3 fl (7.4-10.4); PLATELET 388 x1000/uL (130-400); RED BLOOD CELL COUNT 2.96 mill/uL (4.2-5.4); RED CELL DISTRIBUTION WIDTH 15.3 % (11.6-14.6)
[2019-08-18] MEDS: INSULIN LISPRO 100 UNITS/ML SUBCUT SCH ×4 (06:57→22:35)
[2019-08-18 08:00] VITALS: BP 149/78
[2019-08-18] MEDS: ASCORBIC ACID 500 MG TABLET PO SCH ×2 (09:06→21:16)
[2019-08-18] MEDS: GUAIFENESIN/DM 600MG/30MG ER TAB 12HR PO SCH ×2 (09:07→21:16)
[2019-08-18] MEDS: ZINC SULFATE 220 MG ( 50 ) CAPSULE PO SCH (09:07)
[2019-08-18] MEDS: FAMOTIDINE 20MG TABLET PO SCH (09:08)
[2019-08-18] MEDS: CLOPIDOGREL 75MG TABLET PO SCH (09:08)
[2019-08-18] MEDS: ASPIRIN 325MG EC TABLET PO SCH (09:08)
[2019-08-18] MEDS: ENOXAPARIN 30MG/0.3ML SYR SUBCUT SCH (09:09)
[2019-08-18] MEDS: INSULIN GLARGINE UD 100 UNITS/ML SYR SUBCUT SCH (10:27)
[2019-08-18 12:00] VITALS: BP 154/76
[2019-08-18 12:16] LABS: PLATELET ESTIMATE NORMAL
[2019-08-18 16:00] VITALS: BP 160/82
[2019-08-18 20:00] VITALS: BP 191/92
[2019-08-18] MEDS: CLONIDINE 0.1MG TABLET PO PRN (21:16)
[2019-08-18] MEDS: AZITHROMYCIN 250 MG in DEXT 5% WATER 250 ML IV SCH (21:16)
[2019-08-19] VITALS: BP 157/74
[2019-08-19] MEDS: ACETAMINOPHEN 325MG TABLET PO PRN (00:38)
[2019-08-19 04:00] VITALS: BP 134/92
[2019-08-19] MEDS: PIPERACILLIN/TAZOBACTAM 2.25 G in DEXTROSE 5% WATER 50 ML IV SCH ×3 (05:26→21:24)
[2019-08-19] MEDS: BLOOD SUGAR DIAGNOSTIC STRIP TEST SCH ×4 (06:40→21:00)
[2019-08-19] MEDS: INSULIN LISPRO 100 UNITS/ML SUBCUT SCH ×3 (06:56→17:47)
[2019-08-19 08:00] VITALS: BP 151/100
[2019-08-19] MEDS: ZINC SULFATE 220 MG ( 50 ) CAPSULE PO SCH (09:48)
[2019-08-19] MEDS: ASPIRIN 325MG EC TABLET PO SCH (09:48)
[2019-08-19] MEDS: CLOPIDOGREL 75MG TABLET PO SCH (09:48)
[2019-08-19] MEDS: FAMOTIDINE 20MG TABLET PO SCH (09:48)
[2019-08-19] MEDS: GUAIFENESIN/DM 600MG/30MG ER TAB 12HR PO SCH ×2 (09:48→21:24)
[2019-08-19] MEDS: ASCORBIC ACID 500 MG TABLET PO SCH ×2 (09:48→21:24)
[2019-08-19] MEDS: CLONIDINE 0.1MG TABLET PO PRN (09:49)
[2019-08-19] MEDS: ENOXAPARIN 30MG/0.3ML SYR SUBCUT SCH (09:49)
[2019-08-19] MEDS: INSULIN GLARGINE UD 100 UNITS/ML SYR SUBCUT SCH (09:50)
[2019-08-19 12:00] VITALS: BP 140/68
[2019-08-19 16:00] VITALS: BP 138/74
[2019-08-19 20:00] VITALS: BP 125/83
[2019-08-20] VITALS: BP 161/75
[2019-08-20] MEDS: INSULIN LISPRO 100 UNITS/ML SUBCUT SCH ×5 (00:08→22:56)
[2019-08-20 04:00] VITALS: BP 174/83
[2019-08-20] MEDS: PIPERACILLIN/TAZOBACTAM 2.25 G in DEXTROSE 5% WATER 50 ML IV SCH ×3 (05:52→22:36)
[2019-08-20] MEDS: BLOOD SUGAR DIAGNOSTIC STRIP TEST SCH ×4 (06:48→21:00)
[2019-08-20 08:04] VITALS: BP 154/70
[2019-08-20] MEDS: ASPIRIN 325MG EC TABLET PO SCH (09:16)
[2019-08-20] MEDS: ASCORBIC ACID 500 MG TABLET PO SCH ×2 (09:17→22:36)
[2019-08-20] MEDS: CLOPIDOGREL 75MG TABLET PO SCH (09:17)
[2019-08-20] MEDS: ZINC SULFATE 220 MG ( 50 ) CAPSULE PO SCH (09:17)
[2019-08-20] MEDS: GUAIFENESIN/DM 600MG/30MG ER TAB 12HR PO SCH ×2 (09:17→21:00)
[2019-08-20] MEDS: FAMOTIDINE 20MG TABLET PO SCH (09:17)
[2019-08-20] MEDS: INSULIN GLARGINE UD 100 UNITS/ML SYR SUBCUT SCH (09:27)
[2019-08-20 12:00] VITALS: BP 144/74
[2019-08-20] MEDS: ENOXAPARIN 30MG/0.3ML SYR SUBCUT SCH (12:48)
[2019-08-20 16:00] VITALS: BP 163/80
[2019-08-20 20:00] VITALS: BP 170/88
[2019-08-21] VITALS: BP 152/71
[2019-08-21] MEDS: ACETAMINOPHEN 325MG TABLET PO PRN ×2 (00:43→18:42)
[2019-08-21] MEDS: CLONIDINE 0.1MG TABLET PO PRN (00:43)
[2019-08-21 04:00] VITALS: BP 138/68
[2019-08-21] MEDS: BLOOD SUGAR DIAGNOSTIC STRIP TEST SCH ×4 (06:03→21:08)
[2019-08-21] MEDS: INSULIN LISPRO 100 UNITS/ML SUBCUT SCH ×4 (06:26→21:08)
[2019-08-21 08:11] VITALS: BP 156/75
[2019-08-21] MEDS: ENOXAPARIN 30MG/0.3ML SYR SUBCUT SCH ×2 (09:00→12:12)
[2019-08-21] MEDS: FAMOTIDINE 20MG TABLET PO SCH ×2 (09:00→12:09)
[2019-08-21] MEDS: ASCORBIC ACID 500 MG TABLET PO SCH ×2 (09:18→21:07)
[2019-08-21] MEDS: ASPIRIN 325MG EC TABLET PO SCH (09:18)
[2019-08-21] MEDS: GUAIFENESIN/DM 600MG/30MG ER TAB 12HR PO SCH ×2 (09:18→21:07)
[2019-08-21] MEDS: CLOPIDOGREL 75MG TABLET PO SCH (09:18)
[2019-08-21] MEDS: ZINC SULFATE 220 MG ( 50 ) CAPSULE PO SCH (09:21)
[2019-08-21] MEDS: INSULIN GLARGINE UD 100 UNITS/ML SYR SUBCUT SCH (11:09)
[2019-08-21 12:13] VITALS: BP 103/64
[2019-08-21 16:08] VITALS: BP 129/68
[2019-08-21 20:00] VITALS: BP 150/67
[2019-08-22] VITALS: BP 168/67
[2019-08-22] MEDS: CLONIDINE 0.1MG TABLET PO PRN (02:50)
[2019-08-22] MEDS: ACETAMINOPHEN 325MG TABLET PO PRN (02:51)
[2019-08-22 04:00] VITALS: BP 145/60
[2019-08-22 04:01] LABS: HEMATOCRIT. 27.1 % (36.0-48.0); HEMOGLOBIN. 8.3 g/dL (12.0-16.0); MEAN CORPUSCULAR HEMOGLOBIN 31.2 pg (28.0-32.0); MEAN CORPUSCULAR VOLUME 101.1 fL (81.0-99.0); MEAN PLATELET VOLUME 9.5 fl (7.4-10.4); PLATELET 536 x1000/uL (130-400); RED BLOOD CELL COUNT 2.68 mill/uL (4.2-5.4); RED CELL DISTRIBUTION WIDTH 15.4 % (11.6-14.6)
[2019-08-22 04:09] LABS: CHLORIDE 122 mEq/L (98-107)
[2019-08-22 05:04] LABS: PLATELET ESTIMATE NORMAL
[2019-08-22] MEDS: BLOOD SUGAR DIAGNOSTIC STRIP TEST SCH ×4 (06:12→21:30)
[2019-08-22] MEDS: INSULIN LISPRO 100 UNITS/ML SUBCUT SCH ×4 (06:13→21:59)
[2019-08-22 08:00] VITALS: BP 135/63
[2019-08-22] MEDS: ZINC SULFATE 220 MG ( 50 ) CAPSULE PO SCH (09:07)
[2019-08-22] MEDS: CLOPIDOGREL 75MG TABLET PO SCH (09:07)
[2019-08-22] MEDS: GUAIFENESIN/DM 600MG/30MG ER TAB 12HR PO SCH ×2 (09:07→21:00)
[2019-08-22] MEDS: FAMOTIDINE 20MG TABLET PO SCH (09:07)
[2019-08-22] MEDS: ASPIRIN 325MG EC TABLET PO SCH (09:07)
[2019-08-22] MEDS: ASCORBIC ACID 500 MG TABLET PO SCH ×2 (09:07→21:14)
[2019-08-22] MEDS: ENOXAPARIN 30MG/0.3ML SYR SUBCUT SCH (09:07)
[2019-08-22] MEDS: SODIUM CHLORIDE 0.45% 1,000 ML IV SCH ×2 (09:07→17:04)
[2019-08-22] MEDS: INSULIN GLARGINE UD 100 UNITS/ML SYR SUBCUT SCH (11:43)
[2019-08-22 12:00] VITALS: BP 158/73
[2019-08-22 16:00] VITALS: BP 158/77
[2019-08-22 20:00] VITALS: BP 174/81
[2019-08-23] VITALS: BP 136/92
[2019-08-23 04:00] VITALS: BP 161/68
[2019-08-23] MEDS: SODIUM CHLORIDE 0.45% 1,000 ML IV SCH ×3 (04:00→23:10)
[2019-08-23] MEDS: BLOOD SUGAR DIAGNOSTIC STRIP TEST SCH ×4 (06:29→21:00)
[2019-08-23] MEDS: INSULIN LISPRO 100 UNITS/ML SUBCUT SCH ×4 (06:30→21:00)
[2019-08-23 08:00] VITALS: BP 136/95
[2019-08-23] MEDS: ZINC SULFATE 220 MG ( 50 ) CAPSULE PO SCH (08:10)
[2019-08-23] MEDS: FAMOTIDINE 20MG TABLET PO SCH (08:10)
[2019-08-23] MEDS: ASCORBIC ACID 500 MG TABLET PO SCH ×2 (08:10→20:22)
[2019-08-23] MEDS: GUAIFENESIN/DM 600MG/30MG ER TAB 12HR PO SCH ×2 (08:10→20:22)
[2019-08-23] MEDS: ENOXAPARIN 30MG/0.3ML SYR SUBCUT SCH (08:10)
[2019-08-23] MEDS: ASPIRIN 325MG EC TABLET PO SCH (08:10)
[2019-08-23] MEDS: CLOPIDOGREL 75MG TABLET PO SCH (08:10)
[2019-08-23] MEDS: INSULIN GLARGINE UD 100 UNITS/ML SYR SUBCUT SCH (10:38)
[2019-08-23 12:00] VITALS: BP 162/80
[2019-08-23] MEDS: CLONIDINE 0.1MG TABLET PO PRN ×2 (12:41→20:35)
[2019-08-23 16:00] VITALS: BP 159/76
[2019-08-23 20:00] VITALS: BP 188/89
[2019-08-24] VITALS: BP 187/85
[2019-08-24] MEDS: CLONIDINE 0.1MG TABLET PO PRN (03:28)
[2019-08-24 04:00] VITALS: BP 167/76
[2019-08-24] MEDS: BLOOD SUGAR DIAGNOSTIC STRIP TEST SCH ×4 (06:04→21:00)
[2019-08-24] MEDS: INSULIN LISPRO 100 UNITS/ML SUBCUT SCH ×4 (06:25→21:00)
[2019-08-24 07:00] LABS: CHLORIDE 114 mEq/L (98-107); HEMATOCRIT. 24.6 % (36.0-48.0); HEMOGLOBIN. 7.7 g/dL (12.0-16.0); MEAN CORPUSCULAR VOLUME 101.6 fL (81.0-99.0); MEAN PLATELET VOLUME 9.5 fl (7.4-10.4); PLATELET 508 x1000/uL (130-400); RED BLOOD CELL COUNT 2.42 mill/uL (4.2-5.4); RED CELL DISTRIBUTION WIDTH 15.4 % (11.6-14.6)
[2019-08-24 07:06] LABS: PHOSPHORUS 2.7 mg/dL (2.5-4.9)
[2019-08-24 08:00] VITALS: BP 160/79
[2019-08-24] MEDS: INSULIN GLARGINE UD 100 UNITS/ML SYR SUBCUT SCH (10:00)
[2019-08-24] MEDS: ZINC SULFATE 220 MG ( 50 ) CAPSULE PO SCH (10:59)
[2019-08-24] MEDS: CLOPIDOGREL 75MG TABLET PO SCH (10:59)
[2019-08-24] MEDS: FAMOTIDINE 20MG TABLET PO SCH (10:59)
[2019-08-24] MEDS: ASPIRIN 325MG EC TABLET PO SCH (10:59)
[2019-08-24] MEDS: GUAIFENESIN/DM 600MG/30MG ER TAB 12HR PO SCH ×2 (10:59→20:16)
[2019-08-24] MEDS: ENOXAPARIN 30MG/0.3ML SYR SUBCUT SCH (11:00)
[2019-08-24] MEDS: ASCORBIC ACID 500 MG TABLET PO SCH ×2 (11:03→20:16)
[2019-08-24 12:00] VITALS: BP 138/82
[2019-08-24] MEDS ORDERED: ASCO-316 PO (12:28)
[2019-08-24] MEDS ORDERED: OMEP20TA2 PO (12:28)
[2019-08-24] MEDS ORDERED: VITA400T9 MT (12:29)
[2019-08-24] MEDS ORDERED: CYAN1TAB43 PO (12:29)
[2019-08-24] MEDS ORDERED: METF-416 MT (12:30)
[2019-08-24] MEDS ORDERED: COLC0.6C3 PO (12:31)
[2019-08-24 13:46] LABS: PLATELET ESTIMATE INCREASED
[2019-08-24] MEDS: SODIUM CHLORIDE 0.45% 1,000 ML IV SCH ×2 (14:43→20:16)
[2019-08-24 16:00] VITALS: BP 173/85
[2019-08-24 20:00] VITALS: BP 151/63
[2019-08-25] VITALS: BP 149/86
[2019-08-25 04:00] VITALS: BP 111/69
[2019-08-25] MEDS: SODIUM CHLORIDE 0.45% 1,000 ML IV SCH ×2 (05:53→16:00)
[2019-08-25] MEDS: BLOOD SUGAR DIAGNOSTIC STRIP TEST SCH ×4 (05:53→20:40)
[2019-08-25] MEDS: INSULIN LISPRO 100 UNITS/ML SUBCUT SCH ×4 (05:53→21:00)
[2019-08-25 08:00] VITALS: BP 139/74
[2019-08-25] MEDS: ASCORBIC ACID 500 MG TABLET PO SCH ×2 (08:43→20:40)
[2019-08-25] MEDS: CLOPIDOGREL 75MG TABLET PO SCH (08:43)
[2019-08-25] MEDS: ENOXAPARIN 40MG/0.4ML SYR SUBCUT SCH (08:43)
[2019-08-25] MEDS: ASPIRIN 325MG EC TABLET PO SCH (08:43)
[2019-08-25] MEDS: FAMOTIDINE 20MG TABLET PO SCH (08:43)
[2019-08-25] MEDS: GUAIFENESIN/DM 600MG/30MG ER TAB 12HR PO SCH ×2 (08:43→20:40)
[2019-08-25] MEDS: ZINC SULFATE 220 MG ( 50 ) CAPSULE PO SCH (08:44)
[2019-08-25] MEDS: INSULIN GLARGINE UD 100 UNITS/ML SYR SUBCUT SCH (11:15)
[2019-08-25 12:00] VITALS: BP 153/81
[2019-08-25] MEDS: SODIUM CHLORIDE 45ML SPRAY NS SCH ×4 (12:00→18:09)
[2019-08-25 16:00] VITALS: BP 169/75
[2019-08-25] MEDS: CLONIDINE 0.1MG TABLET PO PRN (18:27)
[2019-08-25 20:00] VITALS: BP 138/83
[2019-08-25] MEDS: ACETAMINOPHEN 325MG TABLET PO PRN (22:05)
[2019-08-25] MEDS: DEXTROSE 50% WATER 50ML SYRINGE IV PRN (22:34)
[2019-08-26] VITALS: BP 156/70
[2019-08-26] MEDS: SODIUM CHLORIDE 45ML SPRAY NS SCH ×4 (00:45→18:30)
[2019-08-26 04:00] VITALS: BP 144/72
[2019-08-26] MEDS: BLOOD SUGAR DIAGNOSTIC STRIP TEST SCH ×4 (06:32→21:08)
[2019-08-26] MEDS: SODIUM CHLORIDE 0.45% 1,000 ML IV SCH (06:38)
[2019-08-26] MEDS: INSULIN LISPRO 100 UNITS/ML SUBCUT SCH ×4 (06:58→21:08)
[2019-08-26 08:00] VITALS: BP 168/73
[2019-08-26] MEDS: GUAIFENESIN/DM 600MG/30MG ER TAB 12HR PO SCH ×2 (09:00→21:06)
[2019-08-26] MEDS: ENOXAPARIN 40MG/0.4ML SYR SUBCUT SCH (09:18)
[2019-08-26] MEDS: ASPIRIN 325MG EC TABLET PO SCH (09:24)
[2019-08-26] MEDS: ZINC SULFATE 220 MG ( 50 ) CAPSULE PO SCH (09:24)
[2019-08-26] MEDS: ASCORBIC ACID 500 MG TABLET PO SCH ×2 (09:24→21:06)
[2019-08-26] MEDS: FAMOTIDINE 20MG TABLET PO SCH (09:24)
[2019-08-26] MEDS: INSULIN GLARGINE UD 100 UNITS/ML SYR SUBCUT SCH (09:25)
[2019-08-26] MEDS: CLOPIDOGREL 75MG TABLET PO SCH (09:25)
[2019-08-26 12:00] VITALS: BP 155/81
[2019-08-26 16:00] VITALS: BP 171/81
[2019-08-26 20:00] VITALS: BP 136/56
[2019-08-26] MEDS: ACETAMINOPHEN 325MG TABLET PO PRN (21:07)
[2019-08-27] VITALS: BP 126/58
[2019-08-27] MEDS: SODIUM CHLORIDE 45ML SPRAY NS SCH ×5 (00:38→23:49)
[2019-08-27 04:00] VITALS: BP 161/75
[2019-08-27] MEDS: BLOOD SUGAR DIAGNOSTIC STRIP TEST SCH ×4 (06:40→21:25)
[2019-08-27 06:47] LABS: HEMATOCRIT. 25.3 % (36.0-48.0); HEMOGLOBIN. 8.1 g/dL (12.0-16.0); MEAN CORPUSCULAR HEMOGLOBIN 32.6 pg (28.0-32.0); MEAN CORPUSCULAR VOLUME 101.4 fL (81.0-99.0); MEAN PLATELET VOLUME 9.1 fl (7.4-10.4); PLATELET 546 x1000/uL (130-400); RED CELL DISTRIBUTION WIDTH 15.4 % (11.6-14.6)
[2019-08-27] MEDS: INSULIN LISPRO 100 UNITS/ML SUBCUT SCH ×4 (07:57→21:00)
[2019-08-27 07:59] LABS: CHLORIDE 113 mEq/L (98-107)
[2019-08-27 08:18] LABS: PHOSPHORUS 3.2 mg/dL (2.5-4.9)
[2019-08-27] MEDS: ZINC SULFATE 220 MG ( 50 ) CAPSULE PO SCH (09:23)
[2019-08-27] MEDS: GUAIFENESIN/DM 600MG/30MG ER TAB 12HR PO SCH ×2 (09:23→21:25)
[2019-08-27] MEDS: ENOXAPARIN 40MG/0.4ML SYR SUBCUT SCH (09:23)
[2019-08-27] MEDS: INSULIN GLARGINE UD 100 UNITS/ML SYR SUBCUT SCH (09:24)
[2019-08-27] MEDS: ASPIRIN 325MG EC TABLET PO SCH (09:24)
[2019-08-27] MEDS: CLOPIDOGREL 75MG TABLET PO SCH (09:24)
[2019-08-27] MEDS: ASCORBIC ACID 500 MG TABLET PO SCH ×2 (09:24→21:25)
[2019-08-27] MEDS: FAMOTIDINE 20MG TABLET PO SCH (09:24)
[2019-08-27] MEDS: ACETAMINOPHEN 325MG TABLET PO PRN ×2 (09:36→23:27)
[2019-08-27 09:39] LABS: PLATELET ESTIMATE INCREASED
[2019-08-27 12:00] VITALS: BP_SYST 120; BP_SYST 134; BP_DIAS 56; BP_DIAS 60
[2019-08-27] MEDS ORDERED: SODIUM POLYSTYRENE SULFONATE 15 G/60 ML BOT PO NR (13:15)
[2019-08-27 20:00] VITALS: BP 150/66
[2019-08-28] VITALS (8 sets, daily range): BP systolic 127–161; BP diastolic 56–72
[2019-08-28] MEDS: SODIUM CHLORIDE 45ML SPRAY NS SCH ×3 (06:00→17:27)
[2019-08-28] MEDS: INSULIN LISPRO 100 UNITS/ML SUBCUT SCH ×4 (06:05→21:00)
[2019-08-28] MEDS: BLOOD SUGAR DIAGNOSTIC STRIP TEST SCH ×4 (06:05→20:06)
[2019-08-28] MEDS: ENOXAPARIN 40MG/0.4ML SYR SUBCUT SCH (09:31)
[2019-08-28] MEDS: INSULIN GLARGINE UD 100 UNITS/ML SYR SUBCUT SCH (09:33)
[2019-08-28] MEDS: FAMOTIDINE 20MG TABLET PO SCH (13:07)
[2019-08-28] MEDS: ZINC SULFATE 220 MG ( 50 ) CAPSULE PO SCH (13:07)
[2019-08-28] MEDS: ASPIRIN 325MG EC TABLET PO SCH (13:07)
[2019-08-28] MEDS: ASCORBIC ACID 500 MG TABLET PO SCH ×2 (13:07→23:06)
[2019-08-28] MEDS: CLOPIDOGREL 75MG TABLET PO SCH (13:08)
[2019-08-28] MEDS: GUAIFENESIN/DM 600MG/30MG ER TAB 12HR PO SCH ×2 (13:08→23:06)
[2019-08-29] VITALS: BP 131/73
[2019-08-29] MEDS: SODIUM CHLORIDE 45ML SPRAY NS SCH ×5 (00:43→23:24)
[2019-08-29] MEDS: ACETAMINOPHEN 325MG TABLET PO PRN (03:47)
[2019-08-29 04:00] VITALS: BP 129/63
[2019-08-29] MEDS: INSULIN LISPRO 100 UNITS/ML SUBCUT SCH ×4 (06:15→20:36)
[2019-08-29] MEDS: BLOOD SUGAR DIAGNOSTIC STRIP TEST SCH ×4 (06:15→19:53)
[2019-08-29 08:00] VITALS: BP 154/72
[2019-08-29] MEDS: CLOPIDOGREL 75MG TABLET PO SCH (08:52)
[2019-08-29] MEDS: ASCORBIC ACID 500 MG TABLET PO SCH ×2 (08:52→19:55)
[2019-08-29] MEDS: ASPIRIN 325MG EC TABLET PO SCH (08:52)
[2019-08-29] MEDS: FAMOTIDINE 20MG TABLET PO SCH (08:52)
[2019-08-29] MEDS: GUAIFENESIN/DM 600MG/30MG ER TAB 12HR PO SCH ×2 (08:52→19:55)
[2019-08-29] MEDS: ZINC SULFATE 220 MG ( 50 ) CAPSULE PO SCH (08:53)
[2019-08-29] MEDS: ENOXAPARIN 40MG/0.4ML SYR SUBCUT SCH (08:53)
[2019-08-29] MEDS: INSULIN GLARGINE UD 100 UNITS/ML SYR SUBCUT SCH (09:02)
[2019-08-29 12:00] VITALS: BP 143/62
[2019-08-29 16:00] VITALS: BP 170/71
[2019-08-29] MEDS: DEXTROSE 50% WATER 50ML SYRINGE IV PRN (17:07)
[2019-08-29] MEDS: CLONIDINE 0.1MG TABLET PO PRN (18:22)
[2019-08-29] MEDS: AMOXICILLIN/POTASSIUM CLAVULANATE 500/125MG TAB PO SCH (19:55)
[2019-08-29 20:00] VITALS: BP_SYST 148; BP_SYST 79; BP_DIAS 79
[2019-08-30] VITALS: BP 164/72
[2019-08-30] MEDS: ACETAMINOPHEN 325MG TABLET PO PRN (00:37)
[2019-08-30 04:00] VITALS: BP 156/79
[2019-08-30] MEDS: SODIUM CHLORIDE 45ML SPRAY NS SCH ×4 (06:00→23:48)
[2019-08-30] MEDS: BLOOD SUGAR DIAGNOSTIC STRIP TEST SCH ×4 (06:02→21:04)
[2019-08-30] MEDS: INSULIN LISPRO 100 UNITS/ML SUBCUT SCH ×4 (06:12→21:05)
[2019-08-30 08:00] VITALS: BP 138/73
[2019-08-30] MEDS: AMOXICILLIN/POTASSIUM CLAVULANATE 500/125MG TAB PO SCH ×2 (08:24→21:04)
[2019-08-30] MEDS: CLOPIDOGREL 75MG TABLET PO SCH (08:24)
[2019-08-30] MEDS: ASCORBIC ACID 500 MG TABLET PO SCH ×2 (08:24→21:04)
[2019-08-30] MEDS: GUAIFENESIN/DM 600MG/30MG ER TAB 12HR PO SCH ×2 (08:24→21:04)
[2019-08-30] MEDS: ASPIRIN 325MG EC TABLET PO SCH (08:24)
[2019-08-30] MEDS: FAMOTIDINE 20MG TABLET PO SCH (08:24)
[2019-08-30] MEDS: ENOXAPARIN 40MG/0.4ML SYR SUBCUT SCH (08:24)
[2019-08-30] MEDS: ZINC SULFATE 220 MG ( 50 ) CAPSULE PO SCH (08:24)
[2019-08-30] MEDS: INSULIN GLARGINE UD 100 UNITS/ML SYR SUBCUT SCH (09:35)
[2019-08-30 12:00] VITALS: BP 138/59
[2019-08-30 16:00] VITALS: BP 125/58
[2019-08-30 20:00] VITALS: BP 129/58
[2019-08-31] VITALS: BP 123/57
[2019-08-31 04:00] VITALS: BP 131/56
[2019-08-31] MEDS: BLOOD SUGAR DIAGNOSTIC STRIP TEST SCH ×3 (06:01→16:40)
[2019-08-31] MEDS: SODIUM CHLORIDE 45ML SPRAY NS SCH ×3 (06:01→18:00)
[2019-08-31] MEDS: INSULIN LISPRO 100 UNITS/ML SUBCUT SCH ×3 (06:15→18:08)
[2019-08-31 07:51] LABS: BASOPHILS % 0.3 % (0.0-2.0); HEMATOCRIT. 28.5 % (36.0-48.0); HEMOGLOBIN. 9.1 g/dL (12.0-16.0); MEAN CORPUSCULAR HEMOGLOBIN 32.6 pg (28.0-32.0); MEAN CORPUSCULAR VOLUME 102.1 fL (81.0-99.0); MEAN PLATELET VOLUME 9.2 fl (7.4-10.4); MONOCYTES % 3.3 % (2.0-8.0); NEUTROPHILS % 83.4 % (40.0-76.0); PLATELET 513 x1000/uL (130-400); RED BLOOD CELL COUNT 2.79 mill/uL (4.2-5.4); RED CELL DISTRIBUTION WIDTH 16.6 % (11.6-14.6)
[2019-08-31 08:00] VITALS: BP 136/55
[2019-08-31 08:00] LABS: CHLORIDE 111 mEq/L (98-107)
[2019-08-31 08:06] LABS: PHOSPHORUS 3.5 mg/dL (2.5-4.9)
[2019-08-31] MEDS: CLOPIDOGREL 75MG TABLET PO SCH (08:57)
[2019-08-31] MEDS: ENOXAPARIN 40MG/0.4ML SYR SUBCUT SCH (08:57)
[2019-08-31] MEDS: FAMOTIDINE 20MG TABLET PO SCH (08:57)
[2019-08-31] MEDS: ASCORBIC ACID 500 MG TABLET PO SCH ×2 (08:57→21:48)
[2019-08-31] MEDS: ASPIRIN 325MG EC TABLET PO SCH (08:57)
[2019-08-31] MEDS: AMOXICILLIN/POTASSIUM CLAVULANATE 500/125MG TAB PO SCH ×2 (08:57→21:48)
[2019-08-31] MEDS: ZINC SULFATE 220 MG ( 50 ) CAPSULE PO SCH (08:57)
[2019-08-31] MEDS: GUAIFENESIN/DM 600MG/30MG ER TAB 12HR PO SCH ×2 (08:57→21:48)
[2019-08-31] MEDS: INSULIN GLARGINE UD 100 UNITS/ML SYR SUBCUT SCH (09:07)
[2019-08-31 12:00] VITALS: BP 131/53
[2019-08-31] MEDS ORDERED: SODIUM POLYSTYRENE SULFONATE 15 G/60 ML BOT PO NR ×2 (13:00→17:00)
[2019-08-31 16:00] VITALS: BP 132/48
[2019-08-31 20:00] VITALS: BP 116/42
[2019-08-31] MEDS ORDERED: DEXTROSE 50% WATER 50ML SYRINGE IV PRN (22:30)
[2019-09-01] VITALS: BP 131/53
[2019-09-01] MEDS: BLOOD SUGAR DIAGNOSTIC STRIP TEST SCH ×4 (00:09→16:36)
[2019-09-01] MEDS: SODIUM CHLORIDE 45ML SPRAY NS SCH ×5 (00:09→17:07)
[2019-09-01] MEDS: INSULIN LISPRO 100 UNITS/ML SUBCUT SCH ×4 (00:30→16:56)
[2019-09-01 04:00] VITALS: BP 105/51
[2019-09-01 08:00] VITALS: BP 131/53
[2019-09-01 09:29] LABS: CHLORIDE 107 mEq/L (98-107)
[2019-09-01] MEDS: ASPIRIN 325MG EC TABLET PO SCH (09:52)
[2019-09-01] MEDS: ASCORBIC ACID 500 MG TABLET PO SCH ×2 (09:52→21:12)
[2019-09-01] MEDS: ZINC SULFATE 220 MG ( 50 ) CAPSULE PO SCH (09:52)
[2019-09-01] MEDS: AMOXICILLIN/POTASSIUM CLAVULANATE 500/125MG TAB PO SCH ×2 (09:52→21:12)
[2019-09-01] MEDS: FAMOTIDINE 20MG TABLET PO SCH (09:52)
[2019-09-01] MEDS: ENOXAPARIN 30MG/0.3ML SYR SUBCUT SCH (09:52)
[2019-09-01] MEDS: GUAIFENESIN/DM 600MG/30MG ER TAB 12HR PO SCH ×2 (09:52→21:12)
[2019-09-01] MEDS: CLOPIDOGREL 75MG TABLET PO SCH (09:52)
[2019-09-01 12:00] VITALS: BP 130/52
[2019-09-01] MEDS: INSULIN GLARGINE UD 100 UNITS/ML SYR SUBCUT SCH (13:35)
[2019-09-01 16:00] VITALS: BP 133/50
[2019-09-01 20:45] VITALS: BP 133/52
[2019-09-01] MEDS: ACETAMINOPHEN 325MG TABLET PO PRN (21:31)
[2019-09-02 00:11] VITALS: BP 143/59
[2019-09-02] MEDS: BLOOD SUGAR DIAGNOSTIC STRIP TEST SCH ×5 (00:14→20:30)
[2019-09-02] MEDS: DEXTROSE 50% WATER 50ML SYRINGE IV PRN (00:15)
[2019-09-02] MEDS: ACETAMINOPHEN 325MG TABLET PO PRN (02:41)
[2019-09-02 04:00] VITALS: BP 147/59
[2019-09-02] MEDS: SODIUM CHLORIDE 45ML SPRAY NS SCH ×4 (05:12→16:46)
[2019-09-02] MEDS: INSULIN LISPRO 100 UNITS/ML SUBCUT SCH ×5 (05:12→20:30)
[2019-09-02 08:00] VITALS: BP 155/60
[2019-09-02] MEDS: CLOPIDOGREL 75MG TABLET PO SCH (09:15)
[2019-09-02] MEDS: FAMOTIDINE 20MG TABLET PO SCH (09:15)
[2019-09-02] MEDS: ASPIRIN 325MG EC TABLET PO SCH (09:15)
[2019-09-02] MEDS: AMOXICILLIN/POTASSIUM CLAVULANATE 500/125MG TAB PO SCH (09:15)
[2019-09-02] MEDS: GUAIFENESIN/DM 600MG/30MG ER TAB 12HR PO SCH ×2 (09:15→21:31)
[2019-09-02] MEDS: ASCORBIC ACID 500 MG TABLET PO SCH ×2 (09:15→21:31)
[2019-09-02] MEDS: ZINC SULFATE 220 MG ( 50 ) CAPSULE PO SCH (09:15)
[2019-09-02] MEDS: ENOXAPARIN 30MG/0.3ML SYR SUBCUT SCH (09:16)
[2019-09-02] MEDS: INSULIN GLARGINE UD 100 UNITS/ML SYR SUBCUT SCH (10:44)
[2019-09-02 12:00] VITALS: BP 132/62
[2019-09-02 16:00] VITALS: BP 137/64
[2019-09-02 20:00] VITALS: BP 196/81
[2019-09-02] MEDS: CLONIDINE 0.1MG TABLET PO PRN (21:30)
[2019-09-03 00:48] VITALS: BP 169/58
[2019-09-03 04:00] VITALS: BP 145/59
[2019-09-03] MEDS: SODIUM CHLORIDE 45ML SPRAY NS SCH ×4 (05:12→17:33)
[2019-09-03] MEDS: BLOOD SUGAR DIAGNOSTIC STRIP TEST SCH ×3 (05:29→17:33)
[2019-09-03] MEDS: INSULIN LISPRO 100 UNITS/ML SUBCUT SCH ×3 (05:29→17:33)
[2019-09-03 08:00] VITALS: BP 146/64
[2019-09-03] MEDS: ASCORBIC ACID 500 MG TABLET PO SCH ×2 (08:14→22:03)
[2019-09-03] MEDS: FAMOTIDINE 20MG TABLET PO SCH (08:14)
[2019-09-03] MEDS: GUAIFENESIN/DM 600MG/30MG ER TAB 12HR PO SCH ×2 (08:15→22:03)
[2019-09-03] MEDS: ZINC SULFATE 220 MG ( 50 ) CAPSULE PO SCH (08:15)
[2019-09-03] MEDS: ASPIRIN 325MG EC TABLET PO SCH (08:15)
[2019-09-03] MEDS: CLOPIDOGREL 75MG TABLET PO SCH (08:15)
[2019-09-03] MEDS: ENOXAPARIN 30MG/0.3ML SYR SUBCUT SCH (08:18)
[2019-09-03] MEDS: INSULIN GLARGINE UD 100 UNITS/ML SYR SUBCUT SCH (11:04)
[2019-09-03 12:00] VITALS: BP 151/59
[2019-09-03 16:00] VITALS: BP 151/55
[2019-09-03 20:00] VITALS: BP 168/78
[2019-09-04] VITALS: BP 152/60
[2019-09-04] MEDS: SODIUM CHLORIDE 45ML SPRAY NS SCH ×4 (00:23→17:26)
[2019-09-04] MEDS: BLOOD SUGAR DIAGNOSTIC STRIP TEST SCH ×4 (00:26→17:27)
[2019-09-04 04:00] VITALS: BP 151/70
[2019-09-04] MEDS: INSULIN LISPRO 100 UNITS/ML SUBCUT SCH ×4 (06:00→17:27)
[2019-09-04 08:00] VITALS: BP 170/81
[2019-09-04] MEDS: ENOXAPARIN 30MG/0.3ML SYR SUBCUT SCH (08:50)
[2019-09-04] MEDS: ZINC SULFATE 220 MG ( 50 ) CAPSULE PO SCH (08:51)
[2019-09-04] MEDS: ASPIRIN 325MG EC TABLET PO SCH (08:51)
[2019-09-04] MEDS: CLONIDINE 0.1MG TABLET PO PRN (08:51)
[2019-09-04] MEDS: GUAIFENESIN/DM 600MG/30MG ER TAB 12HR PO SCH ×2 (08:51→20:39)
[2019-09-04] MEDS: CLOPIDOGREL 75MG TABLET PO SCH (08:51)
[2019-09-04] MEDS: ASCORBIC ACID 500 MG TABLET PO SCH ×2 (08:51→20:39)
[2019-09-04] MEDS: FAMOTIDINE 20MG TABLET PO SCH (08:51)
[2019-09-04] MEDS: INSULIN GLARGINE UD 100 UNITS/ML SYR SUBCUT SCH (10:39)
[2019-09-04 12:00] VITALS: BP 154/73
[2019-09-04 16:00] VITALS: BP 156/60
[2019-09-04] MEDS: DEXTROSE 50% WATER 50ML SYRINGE IV PRN (16:57)
[2019-09-04 20:00] VITALS: BP 143/80
[2019-09-05] VITALS: BP 120/75
[2019-09-05] MEDS: BLOOD SUGAR DIAGNOSTIC STRIP TEST SCH ×4 (00:01→17:37)
[2019-09-05] MEDS: DEXTROSE 50% WATER 50ML SYRINGE IV PRN (00:01)
[2019-09-05] MEDS: SODIUM CHLORIDE 45ML SPRAY NS SCH ×4 (00:04→17:37)
[2019-09-05] MEDS: CLONIDINE 0.1MG TABLET PO PRN (05:07)
[2019-09-05] MEDS: INSULIN LISPRO 100 UNITS/ML SUBCUT SCH ×4 (06:00→17:37)
[2019-09-05] MEDS: ASCORBIC ACID 500 MG TABLET PO SCH ×2 (09:24→22:14)
[2019-09-05] MEDS: FAMOTIDINE 20MG TABLET PO SCH (09:24)
[2019-09-05] MEDS: ASPIRIN 325MG EC TABLET PO SCH (09:24)
[2019-09-05] MEDS: CLOPIDOGREL 75MG TABLET PO SCH (09:26)
[2019-09-05] MEDS: GUAIFENESIN/DM 600MG/30MG ER TAB 12HR PO SCH ×2 (09:26→22:14)
[2019-09-05] MEDS: ZINC SULFATE 220 MG ( 50 ) CAPSULE PO SCH (09:26)
[2019-09-05] MEDS: ACETAMINOPHEN 325MG TABLET PO PRN (09:26)
[2019-09-05] MEDS: ENOXAPARIN 30MG/0.3ML SYR SUBCUT SCH (09:27)
[2019-09-05] MEDS: INSULIN GLARGINE UD 100 UNITS/ML SYR SUBCUT SCH (10:00)
[2019-09-05 12:00] VITALS: BP 112/56
[2019-09-05 16:00] VITALS: BP 129/59
[2019-09-05 20:00] VITALS: BP 153/62
[2019-09-06] VITALS: BP 173/76
[2019-09-06] MEDS: BLOOD SUGAR DIAGNOSTIC STRIP TEST SCH ×4 (00:19→18:00)
[2019-09-06] MEDS: SODIUM CHLORIDE 45ML SPRAY NS SCH ×4 (00:19→18:00)
[2019-09-06] MEDS: CLONIDINE 0.1MG TABLET PO PRN (00:34)
[2019-09-06 04:00] VITALS: BP 165/76
[2019-09-06] MEDS: INSULIN LISPRO 100 UNITS/ML SUBCUT SCH ×4 (06:00→18:00)
[2019-09-06 08:00] VITALS: BP 177/72
[2019-09-06] MEDS: GUAIFENESIN/DM 600MG/30MG ER TAB 12HR PO SCH ×2 (08:47→21:41)
[2019-09-06] MEDS: ASCORBIC ACID 500 MG TABLET PO SCH ×2 (08:47→21:41)
[2019-09-06] MEDS: CLOPIDOGREL 75MG TABLET PO SCH (08:47)
[2019-09-06] MEDS: FAMOTIDINE 20MG TABLET PO SCH (08:47)
[2019-09-06] MEDS: ZINC SULFATE 220 MG ( 50 ) CAPSULE PO SCH (08:47)
[2019-09-06] MEDS: ASPIRIN 325MG EC TABLET PO SCH (08:47)
[2019-09-06] MEDS: ENOXAPARIN 30MG/0.3ML SYR SUBCUT SCH (08:48)
[2019-09-06] MEDS: INSULIN GLARGINE UD 100 UNITS/ML SYR SUBCUT SCH (10:00)
[2019-09-06 12:00] VITALS: BP 146/57
[2019-09-06 16:00] VITALS: BP 172/72
[2019-09-06 20:00] VITALS: BP 155/69
[2019-09-07] VITALS: BP 155/64
[2019-09-07] MEDS: SODIUM CHLORIDE 45ML SPRAY NS SCH ×4 (01:08→17:01)
[2019-09-07 04:00] VITALS: BP 169/74
[2019-09-07] MEDS: INSULIN LISPRO 100 UNITS/ML SUBCUT SCH ×4 (06:48→17:16)
[2019-09-07] MEDS: BLOOD SUGAR DIAGNOSTIC STRIP TEST SCH ×4 (06:49→17:01)
[2019-09-07 08:00] VITALS: BP 151/77
[2019-09-07] MEDS: ASCORBIC ACID 500 MG TABLET PO SCH ×2 (08:57→20:28)
[2019-09-07] MEDS: FAMOTIDINE 20MG TABLET PO SCH (08:57)
[2019-09-07] MEDS: ZINC SULFATE 220 MG ( 50 ) CAPSULE PO SCH (08:57)
[2019-09-07] MEDS: ASPIRIN 325MG EC TABLET PO SCH (08:57)
[2019-09-07] MEDS: GUAIFENESIN/DM 600MG/30MG ER TAB 12HR PO SCH ×2 (08:57→20:28)
[2019-09-07] MEDS: CLOPIDOGREL 75MG TABLET PO SCH (08:57)
[2019-09-07] MEDS: ENOXAPARIN 30MG/0.3ML SYR SUBCUT SCH (09:00)
[2019-09-07] MEDS: INSULIN GLARGINE UD 100 UNITS/ML SYR SUBCUT SCH (09:01)
[2019-09-07 12:00] VITALS: BP 152/70
[2019-09-07 16:00] VITALS: BP 156/78
[2019-09-07 20:00] VITALS: BP 155/84
[2019-09-08] VITALS: BP 167/72
[2019-09-08] MEDS: SODIUM CHLORIDE 45ML SPRAY NS SCH ×4 (00:19→17:00)
[2019-09-08] MEDS: BLOOD SUGAR DIAGNOSTIC STRIP TEST SCH ×4 (00:21→17:00)
[2019-09-08 04:00] VITALS: BP 166/73
[2019-09-08] MEDS: INSULIN LISPRO 100 UNITS/ML SUBCUT SCH ×4 (06:00→17:01)
[2019-09-08] MEDS: DEXTROSE 50% WATER 50ML SYRINGE IV PRN (06:18)
[2019-09-08 06:46] LABS: BASOPHILS % 1.4 % (0.0-2.0); EOSINOPHILS % 9.3 % (0.0-5.0); HEMATOCRIT. 26.3 % (36.0-48.0); HEMOGLOBIN. 8.7 g/dL (12.0-16.0); LYMPHOCYTES % 15.1 % (20.0-50.0); MEAN CORPUSCULAR HEMOGLOBIN 33.8 pg (28.0-32.0); MEAN CORPUSCULAR VOLUME 102.6 fL (81.0-99.0); MONOCYTES % 8.3 % (2.0-8.0); NEUTROPHILS % 65.9 % (40.0-76.0); PLATELET 486 x1000/uL (130-400); RED BLOOD CELL COUNT 2.56 mill/uL (4.2-5.4); RED CELL DISTRIBUTION WIDTH 18.9 % (11.6-14.6)
[2019-09-08 08:00] VITALS: BP 122/59
[2019-09-08 09:08] LABS: CHLORIDE 107 mEq/L (98-107)
[2019-09-08 09:20] LABS: CREATINE KINASE 30 IU/L (26-192)
[2019-09-08] MEDS: GUAIFENESIN/DM 600MG/30MG ER TAB 12HR PO SCH ×2 (09:29→20:46)
[2019-09-08] MEDS: ASCORBIC ACID 500 MG TABLET PO SCH ×2 (09:29→20:46)
[2019-09-08] MEDS: ASPIRIN 325MG EC TABLET PO SCH (09:29)
[2019-09-08] MEDS: CLOPIDOGREL 75MG TABLET PO SCH (09:29)
[2019-09-08] MEDS: ZINC SULFATE 220 MG ( 50 ) CAPSULE PO SCH (09:29)
[2019-09-08] MEDS: ENOXAPARIN 30MG/0.3ML SYR SUBCUT SCH (09:29)
[2019-09-08] MEDS: FAMOTIDINE 20MG TABLET PO SCH (09:29)
[2019-09-08] MEDS: INSULIN GLARGINE UD 100 UNITS/ML SYR SUBCUT SCH (09:30)
[2019-09-08 12:00] VITALS: BP 145/59
[2019-09-08 16:00] VITALS: BP 151/65
[2019-09-08 20:00] VITALS: BP 175/86
[2019-09-08] MEDS: CLONIDINE 0.1MG TABLET PO PRN (21:47)
[2019-09-09] VITALS: BP 132/67
[2019-09-09] MEDS: SODIUM CHLORIDE 45ML SPRAY NS SCH ×4 (01:09→18:00)
[2019-09-09 04:00] VITALS: BP 174/70
[2019-09-09] MEDS: CLONIDINE 0.1MG TABLET PO PRN (05:02)
[2019-09-09] MEDS: INSULIN LISPRO 100 UNITS/ML SUBCUT SCH ×4 (06:00→18:00)
[2019-09-09] MEDS: BLOOD SUGAR DIAGNOSTIC STRIP TEST SCH ×4 (06:12→18:00)
[2019-09-09 08:00] VITALS: BP 141/72
[2019-09-09] MEDS: ZINC SULFATE 220 MG ( 50 ) CAPSULE PO SCH (09:09)
[2019-09-09] MEDS: ENOXAPARIN 30MG/0.3ML SYR SUBCUT SCH (09:09)
[2019-09-09] MEDS: FAMOTIDINE 20MG TABLET PO SCH (09:09)
[2019-09-09] MEDS: ASPIRIN 325MG EC TABLET PO SCH (09:09)
[2019-09-09] MEDS: ASCORBIC ACID 500 MG TABLET PO SCH ×2 (09:09→20:06)
[2019-09-09] MEDS: GUAIFENESIN/DM 600MG/30MG ER TAB 12HR PO SCH ×2 (09:09→20:06)
[2019-09-09] MEDS: CLOPIDOGREL 75MG TABLET PO SCH (09:10)
[2019-09-09] MEDS: INSULIN GLARGINE UD 100 UNITS/ML SYR SUBCUT SCH (09:10)
[2019-09-09 12:00] VITALS: BP 140/61
[2019-09-09 16:00] VITALS: BP 160/72
[2019-09-09 20:00] VITALS: BP 147/66
[2019-09-10] VITALS: BP 160/72
[2019-09-10] MEDS: BLOOD SUGAR DIAGNOSTIC STRIP TEST SCH ×5 (00:24→23:14)
[2019-09-10] MEDS: INSULIN LISPRO 100 UNITS/ML SUBCUT SCH ×5 (00:28→23:15)
[2019-09-10 04:00] VITALS: BP 166/76
[2019-09-10] MEDS: SODIUM CHLORIDE 45ML SPRAY NS SCH ×5 (05:32→23:14)
[2019-09-10] MEDS: CLONIDINE 0.1MG TABLET PO PRN (06:32)
[2019-09-10] MEDS: INSULIN GLARGINE UD 100 UNITS/ML SYR SUBCUT SCH (10:00)
[2019-09-10] MEDS: CLOPIDOGREL 75MG TABLET PO SCH (10:01)
[2019-09-10] MEDS: FAMOTIDINE 20MG TABLET PO SCH (10:01)
[2019-09-10] MEDS: GUAIFENESIN/DM 600MG/30MG ER TAB 12HR PO SCH ×2 (10:01→20:19)
[2019-09-10] MEDS: ZINC SULFATE 220 MG ( 50 ) CAPSULE PO SCH (10:01)
[2019-09-10] MEDS: ASCORBIC ACID 500 MG TABLET PO SCH ×2 (10:01→20:19)
[2019-09-10] MEDS: ASPIRIN 325MG EC TABLET PO SCH (10:01)
[2019-09-10] MEDS: ENOXAPARIN 30MG/0.3ML SYR SUBCUT SCH (10:02)
[2019-09-10 12:00] VITALS: BP 151/64
[2019-09-10 16:00] VITALS: BP 147/67
[2019-09-10 20:00] VITALS: BP 147/75
[2019-09-10] MEDS: ACETAMINOPHEN 325MG TABLET PO PRN (22:29)
[2019-09-11] VITALS: BP 128/60
[2019-09-11 04:00] VITALS: BP 134/68
[2019-09-11] MEDS: BLOOD SUGAR DIAGNOSTIC STRIP TEST SCH ×4 (05:47→23:57)
[2019-09-11] MEDS: INSULIN LISPRO 100 UNITS/ML SUBCUT SCH ×3 (05:47→17:52)
[2019-09-11] MEDS: SODIUM CHLORIDE 45ML SPRAY NS SCH ×4 (05:47→23:56)
[2019-09-11 08:20] VITALS: BP 119/23
[2019-09-11] MEDS: FAMOTIDINE 20MG TABLET PO SCH (09:25)
[2019-09-11] MEDS: ASCORBIC ACID 500 MG TABLET PO SCH ×2 (09:25→20:12)
[2019-09-11] MEDS: GUAIFENESIN/DM 600MG/30MG ER TAB 12HR PO SCH ×2 (09:25→20:12)
[2019-09-11] MEDS: ASPIRIN 325MG EC TABLET PO SCH (09:25)
[2019-09-11] MEDS: ZINC SULFATE 220 MG ( 50 ) CAPSULE PO SCH (09:25)
[2019-09-11] MEDS: ACETAMINOPHEN 325MG TABLET PO PRN ×2 (09:26→20:23)
[2019-09-11] MEDS: CLOPIDOGREL 75MG TABLET PO SCH (09:26)
[2019-09-11] MEDS: ENOXAPARIN 30MG/0.3ML SYR SUBCUT SCH (09:27)
[2019-09-11] MEDS: INSULIN GLARGINE UD 100 UNITS/ML SYR SUBCUT SCH (09:28)
[2019-09-11 12:10] VITALS: BP 181/74
[2019-09-11 20:00] VITALS: BP 175/86
[2019-09-12] VITALS (7 sets, daily range): BP systolic 132–177; BP diastolic 49–80
[2019-09-12] MEDS: INSULIN LISPRO 100 UNITS/ML SUBCUT SCH ×5 (00:19→23:46)
[2019-09-12] MEDS: SODIUM CHLORIDE 45ML SPRAY NS SCH ×4 (05:02→23:40)
[2019-09-12] MEDS: BLOOD SUGAR DIAGNOSTIC STRIP TEST SCH ×4 (05:03→23:47)
[2019-09-12 07:48] LABS: BASOPHILS % 0.8 % (0.0-2.0); EOSINOPHILS % 0.2 % (0.0-5.0); HEMATOCRIT. 26.2 % (36.0-48.0); HEMOGLOBIN. 8.6 g/dL (12.0-16.0); LYMPHOCYTES % 8.2 % (20.0-50.0); MEAN CORPUSCULAR VOLUME 100.2 fL (81.0-99.0); MEAN PLATELET VOLUME 7.9 fl (7.4-10.4); MONOCYTES % 8.2 % (2.0-8.0); NEUTROPHILS % 82.6 % (40.0-76.0); PLATELET 524 x1000/uL (130-400); RED BLOOD CELL COUNT 2.62 mill/uL (4.2-5.4); RED CELL DISTRIBUTION WIDTH 18.3 % (11.6-14.6)
[2019-09-12 08:13] LABS: T4 FREE 1.53 ng/dL (0.76-1.46)
[2019-09-12 08:16] LABS: HEPATITIS B SURFACE ANTIGEN NEGATIVE
[2019-09-12] MEDS: GUAIFENESIN/DM 600MG/30MG ER TAB 12HR PO SCH (08:26)
[2019-09-12] MEDS: ASPIRIN 325MG EC TABLET PO SCH (08:26)
[2019-09-12] MEDS: ASCORBIC ACID 500 MG TABLET PO SCH (08:26)
[2019-09-12] MEDS: ZINC SULFATE 220 MG ( 50 ) CAPSULE PO SCH (08:26)
[2019-09-12] MEDS: FAMOTIDINE 20MG TABLET PO SCH (08:26)
[2019-09-12] MEDS: ENOXAPARIN 30MG/0.3ML SYR SUBCUT SCH (08:26)
[2019-09-12] MEDS: CLOPIDOGREL 75MG TABLET PO SCH (08:26)
[2019-09-12] MEDS: INSULIN GLARGINE UD 100 UNITS/ML SYR SUBCUT SCH (08:28)
[2019-09-12] MEDS ORDERED: METRONIDAZOLE 500MG TABLET PO SCH (13:15)
[2019-09-12] MEDS ORDERED: LEVOFLOXACIN 500MG TABLET PO SCH (13:15)
[2019-09-12] MEDS ORDERED: PROCHLORPERAZINE MALEATE 25MG SUPP PR PRN (14:00)
[2019-09-12] MEDS: ALBUTEROL 6.7GM HFA INHALER ORI SCH ×2 (14:00→20:00)
[2019-09-12] MEDS ORDERED: MEROPENEM 500 MG in SODIUM CHLORIDE 0.9% 50 ML IV SCH (14:00)
[2019-09-12] MEDS ORDERED: DIATR MEGLU/DIATRIZOATE SOLN 30ML PO SCH (17:00)
[2019-09-13] VITALS: BP 131/59
[2019-09-13] MEDS: ALBUTEROL 6.7GM HFA INHALER ORI SCH ×4 (01:55→20:00)
[2019-09-13 04:00] VITALS: BP 141/83
[2019-09-13] MEDS: SODIUM CHLORIDE 45ML SPRAY NS SCH ×3 (05:59→17:50)
[2019-09-13] MEDS: INSULIN LISPRO 100 UNITS/ML SUBCUT SCH ×3 (06:00→17:17)
[2019-09-13] MEDS: BLOOD SUGAR DIAGNOSTIC STRIP TEST SCH ×3 (06:00→17:17)
[2019-09-13 08:00] VITALS: BP 138/81
[2019-09-13] MEDS ORDERED: DIATR MEGLU/DIATRIZOATE SOLN 30ML PO SCH (08:45)
[2019-09-13 09:08] LABS: HIV SCREEN 4G Non Reactive (Non Reactive)
[2019-09-13] MEDS: ENOXAPARIN 30MG/0.3ML SYR SUBCUT SCH (09:31)
[2019-09-13] MEDS: INSULIN GLARGINE UD 100 UNITS/ML SYR SUBCUT SCH (09:51)
[2019-09-13 12:00] VITALS: BP 152/72
[2019-09-13 13:06] LABS: ANTI-NUCLEAR ANTIBODIES DIRECT Negative (Negative)
[2019-09-13 16:00] VITALS: BP 133/74
[2019-09-13 20:00] VITALS: BP 162/71
[2019-09-13] MEDS: AMPICILLIN SOD/SULBACTAM NA 3 G in SODIUM CHLORIDE 0.9% 100 ML IV SCH (21:31)
[2019-09-14] VITALS: BP 145/63
[2019-09-14] MEDS: BLOOD SUGAR DIAGNOSTIC STRIP TEST SCH ×4 (00:14→17:44)
[2019-09-14] MEDS: ALBUTEROL 6.7GM HFA INHALER ORI SCH ×4 (02:00→20:00)
[2019-09-14 04:00] VITALS: BP 177/82
[2019-09-14] MEDS: INSULIN LISPRO 100 UNITS/ML SUBCUT SCH ×5 (06:00→23:57)
[2019-09-14] MEDS: SODIUM CHLORIDE 45ML SPRAY NS SCH ×4 (06:00→17:44)
[2019-09-14] MEDS: AMPICILLIN SOD/SULBACTAM NA 3 G in SODIUM CHLORIDE 0.9% 100 ML IV SCH ×2 (06:35→14:29)
[2019-09-14 08:00] VITALS: BP 151/75
[2019-09-14] MEDS: ENOXAPARIN 30MG/0.3ML SYR SUBCUT SCH (09:55)
[2019-09-14 12:00] VITALS: BP 146/71
[2019-09-14 16:00] VITALS: BP 165/82
[2019-09-14] MEDS ORDERED: CEFEPIME 1,000 MG in DEXTROSE 5% WATER 50 ML IV SCH (18:00)
[2019-09-14 20:00] VITALS: BP 157/71
[2019-09-15] VITALS: BP 163/82
[2019-09-15] MEDS: ALBUTEROL 6.7GM HFA INHALER ORI SCH ×4 (01:57→20:00)
[2019-09-15 04:00] VITALS: BP 159/78
[2019-09-15 05:01] LABS: HEMATOCRIT. 26.2 % (36.0-48.0); HEMOGLOBIN. 8.5 g/dL (12.0-16.0); MEAN CORPUSCULAR HEMOGLOBIN 31.9 pg (28.0-32.0); MEAN CORPUSCULAR VOLUME 98.2 fL (81.0-99.0); MEAN PLATELET VOLUME 8.2 fl (7.4-10.4); PLATELET 528 x1000/uL (130-400); RED BLOOD CELL COUNT 2.67 mill/uL (4.2-5.4); RED CELL DISTRIBUTION WIDTH 18.5 % (11.6-14.6)
[2019-09-15] MEDS: SODIUM CHLORIDE 45ML SPRAY NS SCH ×4 (05:59→18:17)
[2019-09-15] MEDS: INSULIN LISPRO 100 UNITS/ML SUBCUT SCH ×3 (06:00→18:20)
[2019-09-15] MEDS: BLOOD SUGAR DIAGNOSTIC STRIP TEST SCH ×4 (06:55→18:17)
[2019-09-15 08:00] VITALS: BP 180/77
[2019-09-15] MEDS: ENOXAPARIN 30MG/0.3ML SYR SUBCUT SCH (08:31)
[2019-09-15 12:00] VITALS: BP 143/68
[2019-09-15 14:50] LABS: PLATELET ESTIMATE INCREASED
[2019-09-15 16:00] VITALS: BP 137/62
[2019-09-15] MEDS: MEROPENEM 500 MG in SODIUM CHLORIDE 0.9% 50 ML IV SCH (19:44)
[2019-09-15 20:11] VITALS: BP 150/78
[2019-09-16 00:23] VITALS: BP 156/80
[2019-09-16] MEDS: BLOOD SUGAR DIAGNOSTIC STRIP TEST SCH ×5 (00:56→21:46)
[2019-09-16] MEDS: INSULIN LISPRO 100 UNITS/ML SUBCUT SCH ×5 (00:59→21:45)
[2019-09-16] MEDS: ALBUTEROL 6.7GM HFA INHALER ORI SCH ×3 (02:00→13:10)
[2019-09-16] MEDS: MEROPENEM 500 MG in SODIUM CHLORIDE 0.9% 50 ML IV SCH ×2 (02:11→09:14)
[2019-09-16 04:00] VITALS: BP 193/81
[2019-09-16] MEDS: SODIUM CHLORIDE 45ML SPRAY NS SCH ×4 (06:00→17:02)
[2019-09-16 08:00] VITALS: BP 148/75
[2019-09-16] MEDS: ENOXAPARIN 30MG/0.3ML SYR SUBCUT SCH (09:14)
[2019-09-16 12:00] VITALS: BP_SYST 118; BP_SYST 133; BP_DIAS 59
[2019-09-16 15:11] LABS: ANTI-MYELOPEROXIDASE AB < 9.0 U/mL (0.0-9.0); ANTI-PROTEINASE 3 ABS < 3.5 U/mL (0.0-3.5)
[2019-09-16 16:00] VITALS: BP 118/59
[2019-09-16 20:00] VITALS: BP 149/62
[2019-09-16] MEDS: MEROPENEM 1000MG in NORMAL SALINE 100ML IV SCH (21:46)
[2019-09-17] VITALS: BP 118/80
[2019-09-17 04:00] VITALS: BP 149/66
[2019-09-17] MEDS: SODIUM CHLORIDE 45ML SPRAY NS SCH ×4 (05:54→18:39)
[2019-09-17] MEDS: BLOOD SUGAR DIAGNOSTIC STRIP TEST SCH ×3 (06:01→18:40)
[2019-09-17] MEDS: INSULIN LISPRO 100 UNITS/ML SUBCUT SCH ×3 (06:29→18:40)
[2019-09-17 08:30] VITALS: BP 114/64
[2019-09-17] MEDS: MEROPENEM 1000MG in NORMAL SALINE 100ML IV SCH (08:46)
[2019-09-17] MEDS: ENOXAPARIN 30MG/0.3ML SYR SUBCUT SCH (08:46)
[2019-09-17 12:00] VITALS: BP 149/72
[2019-09-17 13:06] LABS: ATYPICAL P-ANCA <1:20 titer (Neg:<1:20); CYTOPLASMIC C-ANCA <1:20 titer (Neg:<1:20); PERINUCLEAR P-ANCA <1:20 titer (Neg:<1:20)
[2019-09-17 16:00] VITALS: BP 140/70
[2019-09-17 20:00] VITALS: BP 119/62
== END 2019-09-17 21:41 | DRG 871 ==
LOC: ER 22:47 → 7EST 08-15 00:46 → EDBEDREQ 08-15 00:57 → CANRESERV 08-15 10:03 → ENRESERV 08-15 10:03 → 7WST 09-13 04:30
PROVIDERS: ADMIT Internal Medicine; ATTEND Internal Medicine
PROC: 0D20XUZ Change Feeding Device in Upper Intestinal Tract, External Approach (ICD-10-PCS; principal; 2019-08-28)
DX: A41.89 Other specified sepsis (principal); U07.1 COVID-19; J12.89 Other viral pneumonia; J96.01 Acute respiratory failure with hypoxia; N17.0 Acute kidney failure with tubular necrosis; G92 Toxic encephalopathy; I21.4 Non-ST elevation (NSTEMI) myocardial infarction; I50.23 Acute on chronic systolic (congestive) heart failure; E44.0 Moderate protein-calorie malnutrition; I13.0 Hypertensive heart and chronic kidney disease with heart failure and stage 1 through stage 4 chronic kidney disease, or unspecified chronic kidney disease; J44.0 Chronic obstructive pulmonary disease with (acute) lower respiratory infection; N39.0 Urinary tract infection, site not specified; Z16.12 Extended spectrum beta lactamase (ESBL) resistance; K94.23 Gastrostomy malfunction; A41.51 Sepsis due to Escherichia coli [E. coli]; R65.20 Severe sepsis without septic shock; D72.810 Lymphocytopenia; E11.22 Type 2 diabetes mellitus with diabetic chronic kidney disease; K29.60 Other gastritis without bleeding; E11.649 Type 2 diabetes mellitus with hypoglycemia without coma; D50.9 Iron deficiency anemia, unspecified; E11.51 Type 2 diabetes mellitus with diabetic peripheral angiopathy without gangrene; F03.90 Unspecified dementia, unspecified severity, without behavioral disturbance, psychotic disturbance, mood disturbance, and anxiety; N18.9 Chronic kidney disease, unspecified; R47.02 Dysphasia; Y83.3 Surgical operation with formation of external stoma as the cause of abnormal reaction of the patient, or of later complication, without mention of misadventure at the time of the procedure; Z79.02 Long term (current) use of antithrombotics/antiplatelets; Z86.73 Personal history of transient ischemic attack (TIA), and cerebral infarction without residual deficits; Z79.4 Long term (current) use of insulin; Z87.440 Personal history of urinary (tract) infections; Z88.2 Allergy status to sulfonamides; Z88.1 Allergy status to other antibiotic agents; Z88.8 Allergy status to other drugs, medicaments and biological substances; Z89.111 Acquired absence of right hand; Y92.128 Other place in nursing home as the place of occurrence of the external cause; Z68.21 Body mass index [BMI] 21.0-21.9, adult
CPT/HCPCS: 36415; 36600; 71045; 74176; 80048; 80053; 80061; 80076; 81003; 82375; 82550; 82553; 82728; 82805; 82962; 83036; 83520; 83605; 83615; 83735; 83880; 84100; 84145; 84439; 84443; 84484; 85025; 85379; 85651; 86038; 86140; 86141; 86256; 86431; 86803; 87077; 87186; 87340; 87389; 87635; 93005; 99291; J0295; J0456; J0692; J1650; J1815; J1940; J1956; J2185; J2543; J3370; J7030; J7050; J7060; Q9963; U0003-CS

== ENCOUNTER 2019-11-13 23:48 | Inpatient (IN) | payer MEDICARE, MEDICAID ==
[~2019-11-13] VITALS: Ht 160 cm; Wt 49.9 kg
[~2019-11-13 23:48] MED LIST changes: +ASCO-316 PO; +COLC0.6C3 PO; +CYAN1TAB43 PO; +METF-416 MT; +OMEP20TA2 PO; +VITA400T9 MT
[2019-11-14 00:56] LABS: BASOPHILS % 0.5 % (0.0-2.0); EOSINOPHILS % 7.3 % (0.0-5.0); HEMATOCRIT. 34.6 % (36.0-48.0); HEMOGLOBIN. 11.4 g/dL (12.0-16.0); LYMPHOCYTES % 13.6 % (20.0-50.0); MEAN CORPUSCULAR HEMOGLOBIN 32.4 pg (28.0-32.0); MEAN PLATELET VOLUME 8.9 fl (7.4-10.4); MONOCYTES % 7.6 % (2.0-8.0); PLATELET 408 x1000/uL (130-400); RED BLOOD CELL COUNT 3.53 mill/uL (4.2-5.4); RED CELL DISTRIBUTION WIDTH 17.1 % (11.6-14.6)
[2019-11-14] MEDS ORDERED: LORAZEPAM 2MG/ML CPJ IV ONE (01:00)
[2019-11-14 01:01] LABS: CHLORIDE 101 mEq/L (98-107)
[2019-11-14] MEDS ORDERED: SODIUM CHLORIDE 0.9% 1,000 ML IV ONE (01:15)
[2019-11-14 01:45] LABS: PROTHROMBIN TIME 10.6 sec (9.6-11.0)
[2019-11-14] MEDS ORDERED: CEFTRIAXONE 1 G PREMIX 50 ML IV ONE (01:45)
[2019-11-14 01:58] LABS: CLARITY URINE TURBID (CLEAR); COLOR URINE YELLOW (YELLOW); KETONES URINE NEGATIVE (NEGATIVE); LEUKOCYTE ESTERASE URINE 3+ (NEGATIVE); NITRITE URINE NEGATIVE (NEGATIVE); OCCULT BLOOD URINE 2+ (NEGATIVE); PH URINE 7.5 (4.5-8.0); PROTEIN URINE 2+ (NEGATIVE); SPECIFIC GRAVITY URINE 1.017 (1.005-1.030); UROBILINOGEN URINE 0.2 E.U./dL (0.2-1.0)
[2019-11-14 05:13] VITALS: BP 154/88
[2019-11-14] MEDS ORDERED: ONDANSETRON HCL 4MG/2ML INJ IV PRN (06:45)
[2019-11-14] MEDS ORDERED: ACETAMINOPHEN 325MG TABLET PO PRN (06:45)
[2019-11-14] MEDS ORDERED: DOCUSATE SODIUM 100MG CAPSULE PO PRN (06:45)
[2019-11-14] MEDS ORDERED: GUAIFENESIN 200MG/10ML SUGAR FREE UDC PO PRN (06:45)
[2019-11-14] MEDS ORDERED: IPRATROPIUM/ALBUTEROL 0.5-3(2.5)MG/3ML NEB ORI PRN (06:45)
[2019-11-14] MEDS ORDERED: NITROGLYCERIN 0.4MG TABLET SL SL PRN (06:45)
[2019-11-14] MEDS ORDERED: DEXTROSE 50% WATER 50ML SYRINGE IV PRN (06:45)
[2019-11-14] MEDS: BLOOD SUGAR DIAGNOSTIC STRIP TEST SCH ×4 (07:40→20:29)
[2019-11-14 08:00] VITALS: BP 195/91
[2019-11-14] MEDS: FAMOTIDINE 20MG TABLET PO SCH (08:41)
[2019-11-14] MEDS: ENOXAPARIN 30MG/0.3ML SYR SUBCUT SCH (08:41)
[2019-11-14] MEDS: ZINC SULFATE 220 MG ( 50 ) CAPSULE PO SCH (08:41)
[2019-11-14] MEDS: CLOPIDOGREL 75MG TABLET PO SCH (08:41)
[2019-11-14] MEDS: ASCORBIC ACID 500 MG TABLET PO SCH ×2 (08:41→20:28)
[2019-11-14] MEDS: INSULIN LISPRO 100 UNITS/ML SUBCUT SCH ×4 (09:15→20:29)
[2019-11-14] MEDS: SODIUM CHLORIDE 0.9% 1,000 ML IV SCH ×2 (09:15→20:28)
[2019-11-14] MEDS: INSULIN GLARGINE UD 100 UNITS/ML SYR SUBCUT SCH (10:29)
[2019-11-14] MEDS: MEROPENEM 500 MG in SODIUM CHLORIDE 0.9% 50 ML IV SCH ×2 (10:30→20:28)
[2019-11-14 12:00] VITALS: BP 196/73
[2019-11-14] MEDS ORDERED: VANCOMYCIN 1 G PREMIX 200 ML IV NR (14:00)
[2019-11-14 16:00] VITALS: BP 166/98
[2019-11-14 16:15] LABS: CREATINE KINASE 54 IU/L (26-192); CREATINE KINASE MB FRACTION < 1.0 ng/mL (0.5-3.6)
[2019-11-14] MEDS: ALBUTEROL 6.7GM HFA INHALER ORI SCH (18:00)
[2019-11-14 20:00] VITALS: BP 150/82
[2019-11-15] MEDS: ALBUTEROL 6.7GM HFA INHALER ORI SCH
[2019-11-15] MEDS: SODIUM CHLORIDE 0.9% 1,000 ML IV SCH ×2 (00:11→22:46)
[2019-11-15] MEDS: ZOLPIDEM TARTRATE 5MG TABLET PO PRN (00:28)
[2019-11-15] MEDS: ACETAMINOPHEN 325MG TABLET PO PRN (00:28)
[2019-11-15 02:20] VITALS: BP 139/75
[2019-11-15] MEDS: BLOOD SUGAR DIAGNOSTIC STRIP TEST SCH ×4 (05:22→20:46)
[2019-11-15 06:04] VITALS: BP 121/63
[2019-11-15] MEDS: CLOPIDOGREL 75MG TABLET PO SCH (08:42)
[2019-11-15] MEDS: ZINC SULFATE 220 MG ( 50 ) CAPSULE PO SCH (08:42)
[2019-11-15] MEDS: INSULIN LISPRO 100 UNITS/ML SUBCUT SCH ×4 (08:42→20:55)
[2019-11-15] MEDS: FAMOTIDINE 20MG TABLET PO SCH (08:42)
[2019-11-15] MEDS: ASCORBIC ACID 500 MG TABLET PO SCH ×2 (08:42→20:55)
[2019-11-15] MEDS: ENOXAPARIN 30MG/0.3ML SYR SUBCUT SCH (09:00)
[2019-11-15 10:19] LABS: HEMATOCRIT. 36.7 % (36.0-48.0); HEMOGLOBIN. 11.9 g/dL (12.0-16.0); MEAN CORPUSCULAR HEMOGLOBIN 32.4 pg (28.0-32.0); MEAN PLATELET VOLUME 9.2 fl (7.4-10.4); PLATELET 404 x1000/uL (130-400); RED BLOOD CELL COUNT 3.67 mill/uL (4.2-5.4); RED CELL DISTRIBUTION WIDTH 17.8 % (11.6-14.6)
[2019-11-15 10:32] LABS: CHLORIDE 111 mEq/L (98-107)
[2019-11-15 10:40] LABS: CREATINE KINASE 73 IU/L (26-192)
[2019-11-15 10:42] LABS: CREATINE KINASE MB FRACTION < 1.0 ng/mL (0.5-3.6)
[2019-11-15] MEDS: INSULIN GLARGINE UD 100 UNITS/ML SYR SUBCUT SCH (10:47)
[2019-11-15 12:00] VITALS: BP 164/75
[2019-11-15] MEDS: MEROPENEM 500 MG in SODIUM CHLORIDE 0.9% 50 ML IV SCH ×2 (13:13→20:56)
[2019-11-15] MEDS: METOCLOPRAMIDE HCL 10MG/2ML VIAL IV SCH ×2 (13:15→18:19)
[2019-11-15 16:00] VITALS: BP 135/62
[2019-11-15] MEDS ORDERED: VANCOMYCIN 750 MG PREMIX 150 ML IV SCH (16:00)
[2019-11-15 16:38] LABS: PLATELET ESTIMATE INCREASED
[2019-11-15 22:37] VITALS: BP 148/74
[2019-11-16] VITALS: BP 131/57
[2019-11-16] MEDS: METOCLOPRAMIDE HCL 10MG/2ML VIAL IV SCH ×5 (00:04→23:44)
[2019-11-16 04:00] VITALS: BP 108/66
[2019-11-16] MEDS: BLOOD SUGAR DIAGNOSTIC STRIP TEST SCH ×4 (06:09→20:35)
[2019-11-16] MEDS: INSULIN LISPRO 100 UNITS/ML SUBCUT SCH ×4 (06:50→20:35)
[2019-11-16 08:00] VITALS: BP 138/64
[2019-11-16] MEDS: ZINC SULFATE 220 MG ( 50 ) CAPSULE PO SCH (08:15)
[2019-11-16] MEDS: CLOPIDOGREL 75MG TABLET PO SCH (08:15)
[2019-11-16] MEDS: ASCORBIC ACID 500 MG TABLET PO SCH ×2 (08:15→20:17)
[2019-11-16] MEDS: FAMOTIDINE 20MG TABLET PO SCH (08:15)
[2019-11-16] MEDS: MEROPENEM 500 MG in SODIUM CHLORIDE 0.9% 50 ML IV SCH ×3 (08:16→21:00)
[2019-11-16] MEDS: ENOXAPARIN 30MG/0.3ML SYR SUBCUT SCH (08:16)
[2019-11-16] MEDS: INSULIN GLARGINE UD 100 UNITS/ML SYR SUBCUT SCH (10:05)
[2019-11-16] MEDS: ACETAMINOPHEN 325MG TABLET PO PRN ×3 (11:20→20:17)
[2019-11-16] MEDS: SODIUM CHLORIDE 0.9% 1,000 ML IV SCH ×2 (11:24→23:44)
[2019-11-16 12:00] VITALS: BP 144/58
[2019-11-16 16:00] VITALS: BP 143/59
[2019-11-17] VITALS: BP 167/77
[2019-11-17] MEDS: ZOLPIDEM TARTRATE 5MG TABLET PO PRN ×2 (00:47→19:54)
[2019-11-17] MEDS: ACETAMINOPHEN 325MG TABLET PO PRN ×4 (00:47→21:43)
[2019-11-17 04:00] VITALS: BP 144/72
[2019-11-17] MEDS: METOCLOPRAMIDE HCL 10MG/2ML VIAL IV SCH ×3 (05:23→18:18)
[2019-11-17] MEDS: BLOOD SUGAR DIAGNOSTIC STRIP TEST SCH ×4 (05:23→19:55)
[2019-11-17] MEDS ORDERED: SODIUM BICARBONATE 4% (2.4MEQ) 5ML VIAL IV ONE (07:45)
[2019-11-17] MEDS ORDERED: LIDOCAINE HCL 1% 20ML VIAL (Pyxis) INJ ONE (07:45)
[2019-11-17] MEDS: INSULIN LISPRO 100 UNITS/ML SUBCUT SCH ×4 (07:50→21:00)
[2019-11-17 08:00] VITALS: BP 170/66
[2019-11-17] MEDS: ENOXAPARIN 30MG/0.3ML SYR SUBCUT SCH (09:54)
[2019-11-17] MEDS: FAMOTIDINE 20MG TABLET PO SCH (09:55)
[2019-11-17] MEDS: ZINC SULFATE 220 MG ( 50 ) CAPSULE PO SCH (09:55)
[2019-11-17] MEDS: MEROPENEM 500 MG in SODIUM CHLORIDE 0.9% 50 ML IV SCH ×2 (09:55→19:53)
[2019-11-17] MEDS: ASCORBIC ACID 500 MG TABLET PO SCH ×2 (09:56→21:42)
[2019-11-17] MEDS: CLOPIDOGREL 75MG TABLET PO SCH (09:56)
[2019-11-17] MEDS: INSULIN GLARGINE UD 100 UNITS/ML SYR SUBCUT SCH (09:57)
[2019-11-17 12:00] VITALS: BP 150/57
[2019-11-17] MEDS: SODIUM CHLORIDE 0.9% 1,000 ML IV SCH (15:20)
[2019-11-17 16:00] VITALS: BP 163/74
[2019-11-17 20:00] VITALS: BP 157/79
[2019-11-18] MEDS ORDERED: ALBUTEROL (0.083%) 2.5MG/3ML NEB HHN SCH
[2019-11-18] MEDS: METOCLOPRAMIDE HCL 10MG/2ML VIAL IV SCH ×3 (00:12→11:42)
[2019-11-18 04:00] VITALS: BP 170/93
[2019-11-18] MEDS: SODIUM CHLORIDE 0.9% 1,000 ML IV SCH (04:05)
[2019-11-18] MEDS: BLOOD SUGAR DIAGNOSTIC STRIP TEST SCH ×2 (05:08→11:56)
[2019-11-18] MEDS: INSULIN LISPRO 100 UNITS/ML SUBCUT SCH ×2 (05:17→11:55)
[2019-11-18 07:46] VITALS: BP 183/82
[2019-11-18] MEDS ORDERED: CLONIDINE 0.1MG TABLET PO PRN (09:15)
[2019-11-18] MEDS: ASCORBIC ACID 500 MG TABLET PO SCH (09:59)
[2019-11-18] MEDS: ENOXAPARIN 30MG/0.3ML SYR SUBCUT SCH (09:59)
[2019-11-18] MEDS: CLOPIDOGREL 75MG TABLET PO SCH (09:59)
[2019-11-18] MEDS: FAMOTIDINE 20MG TABLET PO SCH (09:59)
[2019-11-18] MEDS: ZINC SULFATE 220 MG ( 50 ) CAPSULE PO SCH (09:59)
[2019-11-18] MEDS: MEROPENEM 500 MG in SODIUM CHLORIDE 0.9% 50 ML IV SCH (09:59)
[2019-11-18] MEDS: INSULIN GLARGINE UD 100 UNITS/ML SYR SUBCUT SCH (10:02)
[2019-11-18 12:02] VITALS: BP 172/79
[2019-11-18] MEDS ORDERED: AMLODIPINE 10MG TABLET PO SCH (13:15)
[2019-11-18 14:05] VITALS: BP 143/55
== END 2019-11-18 14:45 | DRG 871 ==
LOC: ER 23:48 → 7WST 11-14 01:31 → EDBEDREQTM 11-14 01:48 → EDBEDREQ 11-14 01:48 → ENRESERV 11-14 02:44 → 6WST 11-14 23:53
PROVIDERS: ADMIT Internal Medicine; ATTEND Internal Medicine
PROC: 02HV33Z Insertion of Infusion Device into Superior Vena Cava, Percutaneous Approach (ICD-10-PCS; principal; 2019-11-17)
PROC: B548ZZA Ultrasonography of Superior Vena Cava, Guidance (ICD-10-PCS; 2019-11-17)
PROC: B5181ZA Fluoroscopy of Superior Vena Cava using Low Osmolar Contrast, Guidance (ICD-10-PCS; 2019-11-17)
DX: A41.51 Sepsis due to Escherichia coli [E. coli] (principal); J96.01 Acute respiratory failure with hypoxia; N17.0 Acute kidney failure with tubular necrosis; G92 Toxic encephalopathy; N39.0 Urinary tract infection, site not specified; I50.22 Chronic systolic (congestive) heart failure; I13.0 Hypertensive heart and chronic kidney disease with heart failure and stage 1 through stage 4 chronic kidney disease, or unspecified chronic kidney disease; J44.1 Chronic obstructive pulmonary disease with (acute) exacerbation; E87.1 Hypo-osmolality and hyponatremia; E44.1 Mild protein-calorie malnutrition; Z68.1 Body mass index [BMI] 19.9 or less, adult; Z16.12 Extended spectrum beta lactamase (ESBL) resistance; I42.9 Cardiomyopathy, unspecified; E83.52 Hypercalcemia; Z20.828 Contact with and (suspected) exposure to other viral communicable diseases; D63.8 Anemia in other chronic diseases classified elsewhere; R13.10 Dysphagia, unspecified; E11.22 Type 2 diabetes mellitus with diabetic chronic kidney disease; R47.02 Dysphasia; E78.00 Pure hypercholesterolemia, unspecified; M19.90 Unspecified osteoarthritis, unspecified site; F03.90 Unspecified dementia, unspecified severity, without behavioral disturbance, psychotic disturbance, mood disturbance, and anxiety; N18.9 Chronic kidney disease, unspecified; Z86.73 Personal history of transient ischemic attack (TIA), and cerebral infarction without residual deficits; Z93.1 Gastrostomy status; Z79.4 Long term (current) use of insulin; Z79.02 Long term (current) use of antithrombotics/antiplatelets; Z88.1 Allergy status to other antibiotic agents; Z88.2 Allergy status to sulfonamides; Z88.8 Allergy status to other drugs, medicaments and biological substances; Z79.84 Long term (current) use of oral hypoglycemic drugs; Z79.899 Other long term (current) drug therapy; Z89.111 Acquired absence of right hand
CPT/HCPCS: 36415; 36573; 71045; 76937; 80048; 80053; 80202; 81003; 82550; 82553; 82962; 83036; 83605; 83880; 84145; 84484; 85025; 87077; 87186; 93005; 93970; 99291; C1725; C1769; J0696; J1650; J1815; J2060; J2185; J2765; J3370; J3490; J7030; J7050; U0003-CS

== ENCOUNTER 2019-12-12 17:48 | Inpatient (IN) | payer MEDICARE, MEDICAID ==
[~2019-12-12] VITALS: Ht 162.6 cm; Wt 59.9 kg
[2019-12-12] MEDS ORDERED: VANCOMYCIN 1 G PREMIX 200 ML IV ONE (19:30)
[2019-12-12] MEDS ORDERED: PIPERACILLIN/TAZ 3.375G PREMIX 50 ML IV ONE (19:30)
[2019-12-12 20:02] LABS: HEMATOCRIT. 27.5 % (36.0-48.0); HEMOGLOBIN. 8.8 g/dL (12.0-16.0); MEAN CORPUSCULAR HEMOGLOBIN 31.9 pg (28.0-32.0); MEAN CORPUSCULAR VOLUME 99.3 fL (81.0-99.0); MEAN PLATELET VOLUME 8.2 fl (7.4-10.4); PLATELET 512 x1000/uL (130-400); RED BLOOD CELL COUNT 2.77 mill/uL (4.2-5.4); RED CELL DISTRIBUTION WIDTH 17.4 % (11.6-14.6)
[2019-12-12 20:04] LABS: CHLORIDE 103 mEq/L (98-107)
[2019-12-12 20:05] LABS: PARTIAL THROMBOPLASTIN TIME 27.3 sec (23.4-31.0); PROTHROMBIN TIME 10.9 sec (9.6-11.0)
[2019-12-12 20:32] LABS: NUCLEATED RED BLOOD CELLS 1 /100 WBC; PLATELET ESTIMATE INCREASED
[2019-12-12] MEDS ORDERED: LORAZEPAM 2MG/ML CPJ IV ONE (23:30)
[2019-12-13] VITALS (7 sets, daily range): BP systolic 95–142; BP diastolic 40–60
[2019-12-13] MEDS ORDERED: KETOROLAC 15MG/ML VIAL IV PRN
[2019-12-13] MEDS ORDERED: DEXTROSE 50% WATER 50ML SYRINGE IV PRN
[2019-12-13] MEDS ORDERED: TRAMADOL 50MG TABLET PO PRN
[2019-12-13] MEDS ORDERED: NITROGLYCERIN 0.4MG TABLET SL SL PRN
[2019-12-13] MEDS ORDERED: MAGNESIUM/ALUMINUM HYDROXIDE/SIMETHICONE 30ML UDC PO PRN
[2019-12-13] MEDS ORDERED: ONDANSETRON HCL 4MG/2ML INJ IV PRN
[2019-12-13] MEDS ORDERED: DOCUSATE SODIUM 100MG CAPSULE PO PRN
[2019-12-13] MEDS ORDERED: IPRATROPIUM/ALBUTEROL 0.5-3(2.5)MG/3ML NEB NEB PRN
[2019-12-13] MEDS ORDERED: MEROPENEM 1,000 MG in SODIUM CHLORIDE 0.9% 100 ML IV SCH ×2
[2019-12-13] MEDS ORDERED: ACETAMINOPHEN 325MG TABLET PO PRN
[2019-12-13] MEDS ORDERED: ZOLPIDEM TARTRATE 5MG TABLET PO PRN
[2019-12-13] MEDS ORDERED: GUAIFENESIN 200MG/10ML SUGAR FREE UDC PO PRN
[2019-12-13] MEDS ORDERED: NA PHOS,M-B/NA PHOS,DI-BA ENEMA 118ML PR PRN
[2019-12-13 00:19] LABS: CLARITY URINE CLOUDY (CLEAR); COLOR URINE YELLOW (YELLOW); KETONES URINE NEGATIVE (NEGATIVE); LEUKOCYTE ESTERASE URINE 3+ (NEGATIVE); NITRITE URINE NEGATIVE (NEGATIVE); OCCULT BLOOD URINE TRACE (NEGATIVE); PROTEIN URINE 2+ (NEGATIVE); SPECIFIC GRAVITY URINE 1.012 (1.005-1.030); UROBILINOGEN URINE 0.2 E.U./dL (0.2-1.0)
[2019-12-13] MEDS ORDERED: MEROPENEM 500MG in NORMAL SALINE 50ML IV SCH (01:00)
[2019-12-13] MEDS: SODIUM CHLORIDE 0.9% 1,000 ML IV SCH ×2 (04:04→12:53)
[2019-12-13] MEDS: MEROPENEM 500MG in NORMAL SALINE 50ML IV SCH ×2 (05:21→20:38)
[2019-12-13] MEDS: HALOPERIDOL LACTATE 5MG/ML VIAL IM PRN (05:21)
[2019-12-13] MEDS: BLOOD SUGAR DIAGNOSTIC STRIP TEST SCH ×4 (06:58→20:39)
[2019-12-13] MEDS: FAMOTIDINE 20MG TABLET PO SCH (08:18)
[2019-12-13] MEDS: ASPIRIN 325MG EC TABLET PO SCH (08:18)
[2019-12-13] MEDS: ZINC SULFATE 220 MG ( 50 ) CAPSULE PO SCH (08:18)
[2019-12-13] MEDS: ASCORBIC ACID 500 MG TABLET PO SCH ×2 (08:20→20:38)
[2019-12-13] MEDS: INSULIN LISPRO 100 UNITS/ML SUBCUT SCH ×4 (08:20→21:49)
[2019-12-13] MEDS: ENOXAPARIN 30MG/0.3ML SYR SUBCUT SCH (08:21)
[2019-12-13] MEDS ORDERED: VANCOMYCIN 500 MG PREMIX 100 ML IV SCH (12:00)
[2019-12-13] MEDS: ACETAMINOPHEN 325MG TABLET PO PRN ×2 (17:25→21:18)
[2019-12-13] MEDS: ATORVASTATIN CALCIUM 10MG TABLET PO SCH (20:38)
[2019-12-13] MEDS ORDERED: ATORVASTATIN CALCIUM 10MG TABLET PO SCH (21:00)
[2019-12-14 00:08] VITALS: BP 134/87
[2019-12-14 04:00] VITALS: BP 108/69
[2019-12-14] MEDS: SODIUM CHLORIDE 0.9% 1,000 ML IV SCH ×2 (04:14→17:36)
[2019-12-14] MEDS: HALOPERIDOL LACTATE 5MG/ML VIAL IM PRN ×2 (04:16→06:11)
[2019-12-14] MEDS: BLOOD SUGAR DIAGNOSTIC STRIP TEST SCH ×4 (06:30→21:52)
[2019-12-14] MEDS: INSULIN LISPRO 100 UNITS/ML SUBCUT SCH ×4 (06:31→21:51)
[2019-12-14 06:56] LABS: HEMATOCRIT. 27.2 % (36.0-48.0); HEMOGLOBIN. 8.6 g/dL (12.0-16.0); MEAN CORPUSCULAR HEMOGLOBIN 32.4 pg (28.0-32.0); MEAN CORPUSCULAR VOLUME 102.4 fL (81.0-99.0); MEAN PLATELET VOLUME 8.7 fl (7.4-10.4); PLATELET 494 x1000/uL (130-400); RED BLOOD CELL COUNT 2.65 mill/uL (4.2-5.4); RED CELL DISTRIBUTION WIDTH 18.8 % (11.6-14.6)
[2019-12-14 07:11] LABS: CHLORIDE 107 mEq/L (98-107)
[2019-12-14 08:00] VITALS: BP 141/58
[2019-12-14] MEDS: LORAZEPAM 2MG/ML CPJ IV PRN (08:08)
[2019-12-14] MEDS: ZINC SULFATE 220 MG ( 50 ) CAPSULE PO SCH (08:08)
[2019-12-14] MEDS: ASPIRIN 325MG EC TABLET PO SCH (08:08)
[2019-12-14] MEDS: ENOXAPARIN 30MG/0.3ML SYR SUBCUT SCH (08:08)
[2019-12-14] MEDS: FAMOTIDINE 20MG TABLET PO SCH (08:08)
[2019-12-14] MEDS: MEROPENEM 500MG in NORMAL SALINE 50ML IV SCH ×2 (08:08→21:43)
[2019-12-14] MEDS: ASCORBIC ACID 500 MG TABLET PO SCH ×2 (08:08→21:43)
[2019-12-14 12:00] VITALS: BP 126/50
[2019-12-14 14:20] LABS: PLATELET ESTIMATE INCREASED
[2019-12-14 16:00] VITALS: BP 108/48
[2019-12-14] MEDS ORDERED: DIATR MEGLU/DIATRIZOATE SOLN 30ML PO SCH ×2 (17:00→18:30)
[2019-12-14 20:00] VITALS: BP 138/50
[2019-12-14] MEDS: ATORVASTATIN CALCIUM 10MG TABLET PO SCH (21:43)
[2019-12-15] VITALS (7 sets, daily range): BP systolic 105–174; BP diastolic 54–66
[2019-12-15] MEDS: SODIUM CHLORIDE 0.9% 1,000 ML IV SCH ×2 (06:11→21:51)
[2019-12-15] MEDS: BLOOD SUGAR DIAGNOSTIC STRIP TEST SCH ×4 (06:23→21:06)
[2019-12-15] MEDS: INSULIN LISPRO 100 UNITS/ML SUBCUT SCH ×4 (06:31→20:51)
[2019-12-15] MEDS: ZINC SULFATE 220 MG ( 50 ) CAPSULE PO SCH (09:24)
[2019-12-15] MEDS: ASCORBIC ACID 500 MG TABLET PO SCH ×2 (09:24→20:47)
[2019-12-15] MEDS: ENOXAPARIN 30MG/0.3ML SYR SUBCUT SCH (09:24)
[2019-12-15] MEDS: MEROPENEM 500MG in NORMAL SALINE 50ML IV SCH ×2 (09:24→20:47)
[2019-12-15] MEDS: FAMOTIDINE 20MG TABLET PO SCH (09:24)
[2019-12-15] MEDS: ASPIRIN 325MG EC TABLET PO SCH (09:24)
[2019-12-15] MEDS: LORAZEPAM 2MG/ML CPJ IV PRN (18:32)
[2019-12-15] MEDS: ATORVASTATIN CALCIUM 10MG TABLET PO SCH (20:48)
[2019-12-16] VITALS: BP 150/59
[2019-12-16 04:00] VITALS: BP 178/70
[2019-12-16] MEDS: HALOPERIDOL LACTATE 5MG/ML VIAL IM PRN ×2 (05:01→13:45)
[2019-12-16] MEDS: INSULIN LISPRO 100 UNITS/ML SUBCUT SCH ×4 (06:18→20:55)
[2019-12-16] MEDS: CLONIDINE 0.1MG TABLET PO PRN ×2 (06:19→13:47)
[2019-12-16] MEDS: BLOOD SUGAR DIAGNOSTIC STRIP TEST SCH ×4 (06:19→20:56)
[2019-12-16] MEDS: LORAZEPAM 2MG/ML CPJ IV PRN ×3 (06:42→22:32)
[2019-12-16 07:03] LABS: HEMATOCRIT. 26.6 % (36.0-48.0); HEMOGLOBIN. 8.3 g/dL (12.0-16.0); MEAN CORPUSCULAR VOLUME 102.2 fL (81.0-99.0); MEAN PLATELET VOLUME 8.7 fl (7.4-10.4); PLATELET 392 x1000/uL (130-400); RED BLOOD CELL COUNT 2.61 mill/uL (4.2-5.4); RED CELL DISTRIBUTION WIDTH 18.5 % (11.6-14.6)
[2019-12-16] MEDS: SODIUM CHLORIDE 0.9% 1,000 ML IV SCH ×2 (08:07→21:04)
[2019-12-16] MEDS: ASPIRIN 325MG EC TABLET PO SCH (08:07)
[2019-12-16] MEDS: MEROPENEM 500MG in NORMAL SALINE 50ML IV SCH (08:07)
[2019-12-16] MEDS: ASCORBIC ACID 500 MG TABLET PO SCH ×2 (08:07→20:56)
[2019-12-16] MEDS: ZINC SULFATE 220 MG ( 50 ) CAPSULE PO SCH (08:07)
[2019-12-16] MEDS: FAMOTIDINE 20MG TABLET PO SCH (08:07)
[2019-12-16] MEDS: ENOXAPARIN 30MG/0.3ML SYR SUBCUT SCH (08:08)
[2019-12-16] MEDS ORDERED: SODIUM POLYSTYRENE SULFONATE 15 G/60 ML BOT PO SCH (11:00)
[2019-12-16 11:47] VITALS: BP 175/81
[2019-12-16 16:00] VITALS: BP 140/65
[2019-12-16 20:00] VITALS: BP 110/58
[2019-12-16] MEDS: ATORVASTATIN CALCIUM 10MG TABLET PO SCH (20:56)
[2019-12-16] MEDS: METRONIDAZOLE 500MG TABLET PO SCH (20:59)
[2019-12-16] MEDS: CEFTAZIDIME PENTAHYDRATE 1 G in DEXTROSE 5% WATER 50 ML IV SCH (22:06)
[2019-12-16 22:09] LABS: PLATELET ESTIMATE NORMAL
[2019-12-17] VITALS: BP 112/71
[2019-12-17 04:00] VITALS: BP 106/73
[2019-12-17] MEDS: LORAZEPAM 2MG/ML CPJ IV PRN ×3 (05:53→17:53)
[2019-12-17] MEDS: BLOOD SUGAR DIAGNOSTIC STRIP TEST SCH ×4 (06:17→20:07)
[2019-12-17] MEDS: INSULIN LISPRO 100 UNITS/ML SUBCUT SCH ×4 (06:23→20:33)
[2019-12-17 08:00] VITALS: BP 166/62
[2019-12-17] MEDS: METRONIDAZOLE 500MG TABLET PO SCH ×2 (08:21→20:26)
[2019-12-17] MEDS: ZINC SULFATE 220 MG ( 50 ) CAPSULE PO SCH (08:21)
[2019-12-17] MEDS: ASCORBIC ACID 500 MG TABLET PO SCH ×2 (08:21→20:23)
[2019-12-17] MEDS: FAMOTIDINE 20MG TABLET PO SCH (08:21)
[2019-12-17] MEDS: ENOXAPARIN 30MG/0.3ML SYR SUBCUT SCH (08:24)
[2019-12-17] MEDS: CEFTAZIDIME PENTAHYDRATE 1 G in DEXTROSE 5% WATER 50 ML IV SCH ×2 (08:24→20:22)
[2019-12-17] MEDS: HALOPERIDOL LACTATE 5MG/ML VIAL IM PRN (08:24)
[2019-12-17 08:28] LABS: CHLORIDE 120 mEq/L (98-107)
[2019-12-17] MEDS: ASPIRIN 325MG EC TABLET PO SCH (08:29)
[2019-12-17 08:33] LABS: HEMATOCRIT. 25.9 % (36.0-48.0); HEMOGLOBIN. 8.2 g/dL (12.0-16.0); MEAN CORPUSCULAR HEMOGLOBIN 32.2 pg (28.0-32.0); MEAN CORPUSCULAR VOLUME 101.8 fL (81.0-99.0); MEAN PLATELET VOLUME 8.5 fl (7.4-10.4); PLATELET 385 x1000/uL (130-400); RED BLOOD CELL COUNT 2.55 mill/uL (4.2-5.4); RED CELL DISTRIBUTION WIDTH 18.4 % (11.6-14.6)
[2019-12-17] MEDS: SODIUM CHLORIDE 0.9% 1,000 ML IV SCH (11:10)
[2019-12-17 12:00] VITALS: BP 183/73
[2019-12-17] MEDS: CLONIDINE 0.1MG TABLET PO PRN ×2 (12:22→20:22)
[2019-12-17 16:00] VITALS: BP 167/56
[2019-12-17 18:58] LABS: PLATELET ESTIMATE NORMAL
[2019-12-17 20:00] VITALS: BP 187/75
[2019-12-17] MEDS: ATORVASTATIN CALCIUM 10MG TABLET PO SCH (20:26)
[2019-12-18] VITALS: BP 201/80
[2019-12-18] MEDS: SODIUM CHLORIDE 0.9% 1,000 ML IV SCH ×2 (00:30→13:50)
[2019-12-18 00:34] VITALS: BP 184/85
[2019-12-18] MEDS: INSULIN LISPRO 100 UNITS/ML SUBCUT SCH ×3 (06:51→17:40)
[2019-12-18] MEDS: BLOOD SUGAR DIAGNOSTIC STRIP TEST SCH ×3 (06:54→17:10)
[2019-12-18 08:00] VITALS: BP 113/86
[2019-12-18] MEDS: ZINC SULFATE 220 MG ( 50 ) CAPSULE PO SCH (09:23)
[2019-12-18] MEDS: ASCORBIC ACID 500 MG TABLET PO SCH (09:23)
[2019-12-18] MEDS: METRONIDAZOLE 500MG TABLET PO SCH (09:23)
[2019-12-18] MEDS: FAMOTIDINE 20MG TABLET PO SCH (09:23)
[2019-12-18] MEDS: CEFTAZIDIME PENTAHYDRATE 1 G in DEXTROSE 5% WATER 50 ML IV SCH (09:24)
[2019-12-18] MEDS: ASPIRIN 325MG EC TABLET PO SCH (09:24)
[2019-12-18] MEDS: ENOXAPARIN 30MG/0.3ML SYR SUBCUT SCH (09:24)
[2019-12-18] MEDS: HALOPERIDOL LACTATE 5MG/ML VIAL IM PRN ×2 (09:36→18:08)
[2019-12-18 12:00] VITALS: BP 169/86
[2019-12-18] MEDS ORDERED: DIATR MEGLU/DIATRIZOATE SOLN 30ML PO NR (12:30)
[2019-12-18] MEDS ORDERED: DIATR MEGLU/DIATRIZOATE SOLN 30ML ONE (12:52)
[2019-12-18 16:00] VITALS: BP 160/75
[2019-12-18 16:18] VITALS: BP 142/76
== END 2019-12-18 19:00 | DRG 871 ==
LOC: ER 17:48 → 7WST 23:24 → EDBEDREQTM 23:28 → EDBEDREQ 23:28 → ENRESERV 12-13 00:02 → EDBEDREQ 12-13 00:22 → ENRESERV 12-13 00:25 → ER 12-13 02:25 → 8WST 12-14 00:06
PROVIDERS: ADMIT Internal Medicine; ATTEND Internal Medicine
DX: A41.9 Sepsis, unspecified organism (principal); G92 Toxic encephalopathy; N17.0 Acute kidney failure with tubular necrosis; E44.0 Moderate protein-calorie malnutrition; E87.2 Acidosis; I69.351 Hemiplegia and hemiparesis following cerebral infarction affecting right dominant side; M62.82 Rhabdomyolysis; D63.8 Anemia in other chronic diseases classified elsewhere; N94.89 Other specified conditions associated with female genital organs and menstrual cycle; E11.51 Type 2 diabetes mellitus with diabetic peripheral angiopathy without gangrene; E78.00 Pure hypercholesterolemia, unspecified; F03.90 Unspecified dementia, unspecified severity, without behavioral disturbance, psychotic disturbance, mood disturbance, and anxiety; I25.10 Atherosclerotic heart disease of native coronary artery without angina pectoris; L85.3 Xerosis cutis; N30.20 Other chronic cystitis without hematuria; Z20.828 Contact with and (suspected) exposure to other viral communicable diseases; N18.9 Chronic kidney disease, unspecified; I12.9 Hypertensive chronic kidney disease with stage 1 through stage 4 chronic kidney disease, or unspecified chronic kidney disease; L89.159 Pressure ulcer of sacral region, unspecified stage; K57.90 Diverticulosis of intestine, part unspecified, without perforation or abscess without bleeding; R74.0 Nonspecific elevation of levels of transaminase and lactic acid dehydrogenase [LDH]; Z88.1 Allergy status to other antibiotic agents; Z88.2 Allergy status to sulfonamides; Z93.1 Gastrostomy status; Z88.8 Allergy status to other drugs, medicaments and biological substances; Z79.84 Long term (current) use of oral hypoglycemic drugs; Z79.899 Other long term (current) drug therapy; Z68.22 Body mass index [BMI] 22.0-22.9, adult
CPT/HCPCS: 36415; 71045; 74021; 74176; 80048; 80053; 80202; 81003; 82040; 82550; 82728; 82962; 83605; 83735; 83880; 84100; 84134; 84145; 84484; 85025; 85651; 86140; 87493; 87635; 93005; 93970; 99285; J0713; J1630; J1650; J1815; J1885; J2060; J2185; J2543; J3370; J7030; J7060; Q9963

== ENCOUNTER 2020-02-12 10:39 | Inpatient (IN) | payer MEDICARE, MEDICAID ==
[~2020-02-12] VITALS: Ht 172.7 cm; Wt 61.7 kg
[2020-02-12] VITALS (24 sets, daily range): BP systolic 111–192; BP diastolic 43–114
[2020-02-12] MEDS ORDERED: SODIUM CHLORIDE 0.9% 1000ML BAG (SEPSIS BOLUS) IV ONE (11:00)
[2020-02-12] MEDS ORDERED: VANCOMYCIN 1 G PREMIX 200 ML IV ONE (11:00)
[2020-02-12] MEDS ORDERED: PIPERACILLIN/TAZ 3.375G PREMIX 50 ML IV ONE (11:00)
[2020-02-12] MEDS ORDERED: ACETAMINOPHEN 650MG SUPP PR ONE (11:30)
[2020-02-12 11:32] LABS: HEMATOCRIT. 33.8 % (36.0-48.0); MEAN CORPUSCULAR HEMOGLOBIN 31.5 pg (28.0-32.0); MEAN CORPUSCULAR VOLUME 96.8 fL (81.0-99.0); MEAN PLATELET VOLUME 8.5 fl (7.4-10.4); PLATELET 511 x1000/uL (130-400); RED BLOOD CELL COUNT 3.49 mill/uL (4.2-5.4); RED CELL DISTRIBUTION WIDTH 18.1 % (11.6-14.6)
[2020-02-12 11:33] LABS: BG BASE EXCESS 6.1 mmol/L (-2.0-2.0); BG CARBOXYHEMOGLOBIN 0.2 % (0.5-1.5); BG DEOXYHEMOGLOBIN 0.7 % (0.0-5.0); BG FRACTION INSPIRED OXYGEN 99.8; BG HCO3 ACT 31.1 mmol/L (22.0-26.0); BG METHEMOGLOBIN 0.1 % (0.0-1.5); BG OXYGEN SATURATION 99.3 % (92.0-98.5); BG PCO2 46.9 mmHg (35.0-45.0); BG SAMPLE SITE LEFT RADIAL; BG TOTAL HEMOGLOBIN 11.2 g/dL (12.0-18.0); BG VENT MODE MASK - NRB
[2020-02-12 12:04] LABS: CLARITY URINE TURBID (CLEAR); COLOR URINE YELLOW (YELLOW); KETONES URINE NEGATIVE (NEGATIVE); LEUKOCYTE ESTERASE URINE 3+ (NEGATIVE); NITRITE URINE NEGATIVE (NEGATIVE); OCCULT BLOOD URINE 2+ (NEGATIVE); PH URINE 6.5 (4.5-8.0); PROTEIN URINE 3+ (NEGATIVE); SPECIFIC GRAVITY URINE 1.015 (1.005-1.030); UROBILINOGEN URINE 0.2 E.U./dL (0.2-1.0)
[2020-02-12 13:00] LABS: PLATELET ESTIMATE INCREASED
[2020-02-12 13:15] LABS: CHLORIDE 102 mEq/L (98-107)
[2020-02-12 13:18] LABS: INR 1.1; PROTHROMBIN TIME 11.5 sec (9.6-11.0)
[2020-02-12] MEDS ORDERED: ALBUTEROL 6.7GM HFA INHALER ORI PRN (14:45)
[2020-02-12] MEDS ORDERED: NITROGLYCERIN 0.4MG TABLET SL SL PRN (14:45)
[2020-02-12] MEDS ORDERED: ONDANSETRON HCL 4MG/2ML INJ IV PRN (14:45)
[2020-02-12] MEDS ORDERED: GUAIFENESIN 200MG/10ML SUGAR FREE UDC PO PRN (14:45)
[2020-02-12] MEDS ORDERED: MAGNESIUM/ALUMINUM HYDROXIDE/SIMETHICONE 30ML UDC PO PRN (14:45)
[2020-02-12] MEDS ORDERED: NOREPINEPHRINE 8 MG in DEXT 5% WATER 242 ML IV PRN (14:45)
[2020-02-12] MEDS ORDERED: DOCUSATE SODIUM 100MG CAPSULE PO PRN (14:45)
[2020-02-12] MEDS ORDERED: ALBUTEROL 6.7GM HFA INHALER ORI SCH (15:00)
[2020-02-12] MEDS ORDERED: NOREPINEPHRINE 8MG/250ML PMX 242 ML IV PRN (15:53)
[2020-02-12] MEDS ORDERED: MEROPENEM 1,000 MG in SODIUM CHLORIDE 0.9% 100 ML IV SCH (16:00)
[2020-02-12] MEDS ORDERED: NOREPINEPHRINE 8MG/250ML PMX 250 ML IV PRN (16:39)
[2020-02-12] MEDS: BLOOD SUGAR DIAGNOSTIC STRIP TEST SCH ×2 (17:00→21:49)
[2020-02-12] MEDS ORDERED: NITROGLYCERIN 50MG PREMIX 250 ML IV PRN (18:00)
[2020-02-12] MEDS: CLONIDINE 0.1MG TABLET PO PRN (18:11)
[2020-02-12] MEDS: ENOXAPARIN 30MG/0.3ML SYR SUBCUT SCH (18:12)
[2020-02-12] MEDS: INSULIN LISPRO 100 UNITS/ML SUBCUT SCH ×2 (18:13→21:00)
[2020-02-12] MEDS: ZOLPIDEM TARTRATE 5MG TABLET PO PRN (18:13)
[2020-02-12] MEDS: AMLODIPINE 10MG TABLET PO SCH (18:23)
[2020-02-12] MEDS: ASCORBIC ACID 500 MG TABLET PO SCH (21:46)
[2020-02-12] MEDS: ATORVASTATIN CALCIUM 10MG TABLET PO SCH (21:48)
[2020-02-12] MEDS: FAMOTIDINE 20MG TABLET PO SCH (21:48)
[2020-02-12 23:14] LABS: CREATINE KINASE MB FRACTION 3.8 ng/mL (0.5-3.6)
[2020-02-13] VITALS (41 sets, daily range): BP systolic 98–190; BP diastolic 54–120
[2020-02-13] MEDS ORDERED: MEROPENEM 1,000 MG in SODIUM CHLORIDE 0.9% 100 ML IV SCH ×2 (01:00→02:00)
[2020-02-13 05:35] LABS: CREATINE KINASE MB FRACTION 2.6 ng/mL (0.5-3.6)
[2020-02-13] MEDS: BLOOD SUGAR DIAGNOSTIC STRIP TEST SCH ×4 (06:15→21:36)
[2020-02-13] MEDS: INSULIN LISPRO 100 UNITS/ML SUBCUT SCH ×4 (06:17→21:44)
[2020-02-13] MEDS: ASCORBIC ACID 500 MG TABLET PO SCH ×2 (08:49→21:36)
[2020-02-13] MEDS: AMLODIPINE 10MG TABLET PO SCH (08:49)
[2020-02-13] MEDS: MEROPENEM 1,000 MG in SODIUM CHLORIDE 0.9% 100 ML IV SCH ×2 (08:50→21:36)
[2020-02-13] MEDS: CLOPIDOGREL 75MG TABLET PO SCH (08:50)
[2020-02-13] MEDS: ZINC SULFATE 220 MG ( 50 ) CAPSULE PO SCH (08:51)
[2020-02-13] MEDS: HALOPERIDOL LACTATE 5MG/ML VIAL IM PRN ×2 (08:51→12:47)
[2020-02-13] MEDS: KETOROLAC 15MG/ML VIAL IV PRN (09:53)
[2020-02-13] MEDS ORDERED: VANCOMYCIN 750 MG PREMIX 150 ML IV SCH ×2 (11:00→11:30)
[2020-02-13] MEDS ORDERED: VANCOMYCIN 1 G PREMIX 200 ML IV SCH (12:00)
[2020-02-13] MEDS ORDERED: DIPHENHYDRAMINE 25MG CAPSULE PO PRN (13:30)
[2020-02-13] MEDS: ENOXAPARIN 30MG/0.3ML SYR SUBCUT SCH (16:30)
[2020-02-13] MEDS ORDERED: ALBUTEROL (0.083%) 2.5MG/3ML NEB HHN PRN (19:30)
[2020-02-13] MEDS: FAMOTIDINE 20MG TABLET PO SCH (21:36)
[2020-02-13] MEDS: ATORVASTATIN CALCIUM 10MG TABLET PO SCH (21:36)
[2020-02-13] MEDS: CLONIDINE 0.1MG TABLET PO PRN (22:00)
[2020-02-14] VITALS: BP 100/42
[2020-02-14] MEDS: KETOROLAC 15MG/ML VIAL IV PRN ×2 (00:13→16:02)
[2020-02-14] MEDS: HALOPERIDOL LACTATE 5MG/ML VIAL IM PRN (02:06)
[2020-02-14 04:00] VITALS: BP 133/46
[2020-02-14 05:56] LABS: HEMATOCRIT. 24.7 % (36.0-48.0); HEMOGLOBIN. 8.2 g/dL (12.0-16.0); MEAN CORPUSCULAR HEMOGLOBIN 32.5 pg (28.0-32.0); MEAN CORPUSCULAR VOLUME 98.2 fL (81.0-99.0); MEAN PLATELET VOLUME 8.2 fl (7.4-10.4); PLATELET 411 x1000/uL (130-400); RED BLOOD CELL COUNT 2.51 mill/uL (4.2-5.4); RED CELL DISTRIBUTION WIDTH 17.4 % (11.6-14.6)
[2020-02-14] MEDS: BLOOD SUGAR DIAGNOSTIC STRIP TEST SCH ×4 (06:35→20:40)
[2020-02-14] MEDS: INSULIN LISPRO 100 UNITS/ML SUBCUT SCH ×4 (06:42→20:41)
[2020-02-14 08:09] VITALS: BP 110/44
[2020-02-14] MEDS: ASCORBIC ACID 500 MG TABLET PO SCH ×2 (09:00→20:38)
[2020-02-14] MEDS: CLOPIDOGREL 75MG TABLET PO SCH (09:00)
[2020-02-14] MEDS: ACETAMINOPHEN 325MG TABLET PO PRN ×2 (09:00→20:38)
[2020-02-14] MEDS: ZINC SULFATE 220 MG ( 50 ) CAPSULE PO SCH (09:00)
[2020-02-14] MEDS: AMLODIPINE 10MG TABLET PO SCH (09:00)
[2020-02-14] MEDS: MEROPENEM 1,000 MG in SODIUM CHLORIDE 0.9% 100 ML IV SCH ×2 (09:53→20:38)
[2020-02-14 12:31] VITALS: BP 111/64
[2020-02-14 14:04] LABS: PLATELET ESTIMATE SLIGHTLY INCREASED
[2020-02-14 16:00] VITALS: BP 167/73
[2020-02-14] MEDS: ENOXAPARIN 30MG/0.3ML SYR SUBCUT SCH (17:40)
[2020-02-14] MEDS: ATORVASTATIN CALCIUM 10MG TABLET PO SCH (20:38)
[2020-02-14] MEDS: FAMOTIDINE 20MG TABLET PO SCH (20:40)
[2020-02-14 20:43] VITALS: BP 138/61
[2020-02-14] MEDS: ALBUTEROL (0.083%) 2.5MG/3ML NEB HHN SCH (20:49)
[2020-02-15 00:48] VITALS: BP 130/60
[2020-02-15] MEDS: ALBUTEROL (0.083%) 2.5MG/3ML NEB HHN SCH ×4 (02:02→21:10)
[2020-02-15 04:00] VITALS: BP 158/70
[2020-02-15] MEDS: INSULIN LISPRO 100 UNITS/ML SUBCUT SCH ×4 (06:29→20:42)
[2020-02-15] MEDS: BLOOD SUGAR DIAGNOSTIC STRIP TEST SCH ×4 (06:30→20:42)
[2020-02-15 08:41] VITALS: BP 177/78
[2020-02-15] MEDS: AMLODIPINE 10MG TABLET PO SCH (08:44)
[2020-02-15] MEDS: ASCORBIC ACID 500 MG TABLET PO SCH ×2 (08:45→20:42)
[2020-02-15] MEDS: CLOPIDOGREL 75MG TABLET PO SCH (08:45)
[2020-02-15] MEDS: ZINC SULFATE 220 MG ( 50 ) CAPSULE PO SCH (08:45)
[2020-02-15] MEDS: MEROPENEM 1,000 MG in SODIUM CHLORIDE 0.9% 100 ML IV SCH ×2 (08:46→20:41)
[2020-02-15] MEDS: KETOROLAC 15MG/ML VIAL IV PRN (09:39)
[2020-02-15 12:08] VITALS: BP 163/66
[2020-02-15] MEDS ORDERED: DIATR MEGLU/DIATRIZOATE SOLN 30ML PO SCH (15:00)
[2020-02-15 16:03] VITALS: BP 167/66
[2020-02-15] MEDS: ENOXAPARIN 30MG/0.3ML SYR SUBCUT SCH (16:13)
[2020-02-15 20:20] VITALS: BP 150/58
[2020-02-15] MEDS: FAMOTIDINE 20MG TABLET PO SCH (20:41)
[2020-02-15] MEDS: ATORVASTATIN CALCIUM 10MG TABLET PO SCH (20:41)
[2020-02-15] MEDS ORDERED: VANCOMYCIN 500 MG PREMIX 100 ML IV NR (21:00)
[2020-02-16 00:19] VITALS: BP 172/69
[2020-02-16] MEDS: CLONIDINE 0.1MG TABLET PO PRN (00:22)
[2020-02-16] MEDS: ALBUTEROL (0.083%) 2.5MG/3ML NEB HHN SCH ×4 (00:58→21:11)
[2020-02-16] MEDS: KETOROLAC 15MG/ML VIAL IV PRN (03:01)
[2020-02-16 04:00] VITALS: BP 100/67
[2020-02-16] MEDS: BLOOD SUGAR DIAGNOSTIC STRIP TEST SCH ×5 (06:45→20:16)
[2020-02-16] MEDS: INSULIN LISPRO 100 UNITS/ML SUBCUT SCH ×4 (06:45→20:17)
[2020-02-16 07:06] LABS: HEMOGLOBIN. 7.6 g/dL (12.0-16.0); MEAN CORPUSCULAR HEMOGLOBIN 31.5 pg (28.0-32.0); MEAN CORPUSCULAR VOLUME 100.1 fL (81.0-99.0); MEAN PLATELET VOLUME 8.8 fl (7.4-10.4); PLATELET 399 x1000/uL (130-400); RED CELL DISTRIBUTION WIDTH 17.7 % (11.6-14.6)
[2020-02-16 08:00] VITALS: BP 144/65
[2020-02-16] MEDS: ASCORBIC ACID 500 MG TABLET PO SCH ×2 (09:00→20:16)
[2020-02-16] MEDS: MEROPENEM 1,000 MG in SODIUM CHLORIDE 0.9% 100 ML IV SCH ×2 (09:03→20:15)
[2020-02-16] MEDS: CLOPIDOGREL 75MG TABLET PO SCH (09:03)
[2020-02-16] MEDS: AMLODIPINE 10MG TABLET PO SCH (09:03)
[2020-02-16] MEDS: ZINC SULFATE 220 MG ( 50 ) CAPSULE PO SCH (10:19)
[2020-02-16 12:00] VITALS: BP 157/74
[2020-02-16 15:56] LABS: PLATELET ESTIMATE NORMAL
[2020-02-16 16:00] VITALS: BP 132/64
[2020-02-16] MEDS: ENOXAPARIN 30MG/0.3ML SYR SUBCUT SCH (17:42)
[2020-02-16 20:08] VITALS: BP 150/72
[2020-02-16] MEDS: FAMOTIDINE 20MG TABLET PO SCH (20:16)
[2020-02-16] MEDS: ATORVASTATIN CALCIUM 10MG TABLET PO SCH (20:16)
[2020-02-16] MEDS: ACETYLCYSTEINE 100MG/ML 10% VIAL 4ML INH SCH (21:10)
[2020-02-16] MEDS: MEROPENEM 500MG in NORMAL SALINE 50ML IV SCH (21:49)
[2020-02-16] MEDS: ZOLPIDEM TARTRATE 5MG TABLET PO PRN (23:48)
[2020-02-16] MEDS: ACETAMINOPHEN 325MG TABLET PO PRN (23:48)
[2020-02-17] VITALS (7 sets, daily range): BP systolic 126–165; BP diastolic 54–69
[2020-02-17] MEDS: ALBUTEROL (0.083%) 2.5MG/3ML NEB HHN SCH ×4 (01:26→20:09)
[2020-02-17] MEDS: BLOOD SUGAR DIAGNOSTIC STRIP TEST SCH ×4 (05:47→19:33)
[2020-02-17] MEDS: INSULIN LISPRO 100 UNITS/ML SUBCUT SCH ×4 (06:14→21:12)
[2020-02-17] MEDS: ACETYLCYSTEINE 100MG/ML 10% VIAL 4ML INH SCH ×2 (08:41→14:34)
[2020-02-17] MEDS: CLOPIDOGREL 75MG TABLET PO SCH (09:10)
[2020-02-17] MEDS: AMLODIPINE 10MG TABLET PO SCH (09:10)
[2020-02-17] MEDS: ZINC SULFATE 220 MG ( 50 ) CAPSULE PO SCH (09:10)
[2020-02-17] MEDS: ASCORBIC ACID 500 MG TABLET PO SCH ×2 (09:10→21:10)
[2020-02-17] MEDS: MEROPENEM 500MG in NORMAL SALINE 50ML IV SCH ×2 (09:11→21:11)
[2020-02-17] MEDS: ENOXAPARIN 30MG/0.3ML SYR SUBCUT SCH (16:50)
[2020-02-17] MEDS: SODIUM CHLORIDE 0.45% 1,000 ML IV SCH (18:53)
[2020-02-17] MEDS: ACETAMINOPHEN 325MG TABLET PO PRN (21:09)
[2020-02-17] MEDS: CLONIDINE 0.1MG TABLET PO PRN (21:10)
[2020-02-17] MEDS: ATORVASTATIN CALCIUM 10MG TABLET PO SCH (21:10)
[2020-02-17] MEDS: FAMOTIDINE 20MG TABLET PO SCH (21:10)
[2020-02-18] VITALS (7 sets, daily range): BP systolic 113–161; BP diastolic 55–72
[2020-02-18] MEDS: MICAFUNGIN 100 MG in SODIUM CHLORIDE 0.9% 100 ML IV SCH (01:09)
[2020-02-18] MEDS: ALBUTEROL (0.083%) 2.5MG/3ML NEB HHN SCH ×4 (02:31→21:28)
[2020-02-18 03:22] LABS: CLARITY URINE CLOUDY (CLEAR); COLOR URINE YELLOW (YELLOW); KETONES URINE TRACE (NEGATIVE); LEUKOCYTE ESTERASE URINE 3+ (NEGATIVE); NITRITE URINE NEGATIVE (NEGATIVE); OCCULT BLOOD URINE TRACE (NEGATIVE); PH URINE 7.5 (4.5-8.0); PROTEIN URINE 2+ (NEGATIVE); SPECIFIC GRAVITY URINE 1.018 (1.005-1.030); UROBILINOGEN URINE 0.2 E.U./dL (0.2-1.0)
[2020-02-18] MEDS: BLOOD SUGAR DIAGNOSTIC STRIP TEST SCH ×4 (06:14→21:00)
[2020-02-18] MEDS: AMLODIPINE 10MG TABLET PO SCH (08:46)
[2020-02-18] MEDS: CLOPIDOGREL 75MG TABLET PO SCH (08:46)
[2020-02-18] MEDS: ZINC SULFATE 220 MG ( 50 ) CAPSULE PO SCH (08:46)
[2020-02-18] MEDS: MEROPENEM 500MG in NORMAL SALINE 50ML IV SCH ×2 (08:46→22:39)
[2020-02-18] MEDS: ASCORBIC ACID 500 MG TABLET PO SCH ×2 (08:46→22:38)
[2020-02-18] MEDS: INSULIN LISPRO 100 UNITS/ML SUBCUT SCH ×4 (08:47→22:41)
[2020-02-18] MEDS: ACETYLCYSTEINE 100MG/ML 10% VIAL 4ML INH SCH ×2 (08:51→21:29)
[2020-02-18 10:59] LABS: BASOPHILS % 0.7 % (0.0-2.0); EOSINOPHILS % 8.9 % (0.0-5.0); HEMATOCRIT. 23.2 % (36.0-48.0); HEMOGLOBIN. 7.2 g/dL (12.0-16.0); MEAN CORPUSCULAR HEMOGLOBIN 31.4 pg (28.0-32.0); MEAN CORPUSCULAR VOLUME 100.6 fL (81.0-99.0); MEAN PLATELET VOLUME 9.1 fl (7.4-10.4); NEUTROPHILS % 64.4 % (40.0-76.0); PLATELET 372 x1000/uL (130-400); RED BLOOD CELL COUNT 2.31 mill/uL (4.2-5.4); RED CELL DISTRIBUTION WIDTH 17.9 % (11.6-14.6)
[2020-02-18 11:25] LABS: T4 FREE 1.19 ng/dL (0.76-1.46)
[2020-02-18] MEDS ORDERED: SODIUM POLYSTYRENE SULFONATE 15 G/60 ML BOT PO NR (13:30)
[2020-02-18] MEDS: SODIUM CHLORIDE 0.45% 1,000 ML IV SCH (14:38)
[2020-02-18] MEDS: VANCOMYCIN HCL 1000 MG/20 ML ORAL PO SCH (17:32)
[2020-02-18] MEDS: ENOXAPARIN 30MG/0.3ML SYR SUBCUT SCH (17:32)
[2020-02-18] MEDS ORDERED: SODIUM POLYSTYRENE SULFONATE 15 G/60 ML BOT PO SCH (18:00)
[2020-02-18] MEDS ORDERED: VANCOMYCIN HCL 1 GM/VIAL PO SCH (18:00)
[2020-02-18] MEDS ORDERED: VANCOMYCIN 500 MG PREMIX 100 ML IV SCH (21:00)
[2020-02-18] MEDS: ATORVASTATIN CALCIUM 10MG TABLET PO SCH (22:38)
[2020-02-18] MEDS: FAMOTIDINE 20MG TABLET PO SCH (22:38)
[2020-02-19] MEDS: MICAFUNGIN 100 MG in SODIUM CHLORIDE 0.9% 100 ML IV SCH (01:07)
[2020-02-19] MEDS: ALBUTEROL (0.083%) 2.5MG/3ML NEB HHN SCH ×5 (01:38→20:58)
[2020-02-19 04:00] VITALS: BP 121/52
[2020-02-19] MEDS: VANCOMYCIN HCL 1000 MG/20 ML ORAL PO SCH ×4 (06:08→18:36)
[2020-02-19 07:09] LABS: BASOPHILS % 1.4 % (0.0-2.0); EOSINOPHILS % 13.3 % (0.0-5.0); HEMATOCRIT. 23.3 % (36.0-48.0); HEMOGLOBIN. 7.1 g/dL (12.0-16.0); LYMPHOCYTES % 17.1 % (20.0-50.0); MEAN CORPUSCULAR VOLUME 101.1 fL (81.0-99.0); MEAN PLATELET VOLUME 9.3 fl (7.4-10.4); MONOCYTES % 7.8 % (2.0-8.0); NEUTROPHILS % 60.4 % (40.0-76.0); PLATELET 373 x1000/uL (130-400); RED BLOOD CELL COUNT 2.31 mill/uL (4.2-5.4); RED CELL DISTRIBUTION WIDTH 17.7 % (11.6-14.6)
[2020-02-19] MEDS: BLOOD SUGAR DIAGNOSTIC STRIP TEST SCH ×4 (07:20→20:56)
[2020-02-19 07:28] LABS: CHLORIDE 131 mEq/L (98-107)
[2020-02-19 07:33] LABS: PHOSPHORUS 4.7 mg/dL (2.5-4.9)
[2020-02-19 07:56] VITALS: BP 113/53
[2020-02-19] MEDS: CLOPIDOGREL 75MG TABLET PO SCH (09:20)
[2020-02-19] MEDS: DEXTROSE 5% WATER 1,000 ML IV SCH ×2 (09:21→09:26)
[2020-02-19] MEDS: AMLODIPINE 10MG TABLET PO SCH (09:21)
[2020-02-19] MEDS: ZINC SULFATE 220 MG ( 50 ) CAPSULE PO SCH (09:21)
[2020-02-19] MEDS: ASCORBIC ACID 500 MG TABLET PO SCH ×2 (09:21→20:55)
[2020-02-19] MEDS: MEROPENEM 500MG in NORMAL SALINE 50ML IV SCH ×2 (09:21→20:55)
[2020-02-19] MEDS: INSULIN LISPRO 100 UNITS/ML SUBCUT SCH ×4 (09:23→21:09)
[2020-02-19 11:47] VITALS: BP 113/84
[2020-02-19] MEDS ORDERED: INSULIN LISPRO 100 UNITS/ML SUBCUT SCH (12:50)
[2020-02-19] MEDS: ACETYLCYSTEINE 100MG/ML 10% VIAL 4ML INH SCH (14:22)
[2020-02-19] MEDS: ENOXAPARIN 30MG/0.3ML SYR SUBCUT SCH (15:14)
[2020-02-19 16:19] VITALS: BP 114/50
[2020-02-19 20:41] VITALS: BP 130/66
[2020-02-19] MEDS ORDERED: HALOPERIDOL LACTATE 5MG/ML VIAL IM NR ×2 (20:45)
[2020-02-19] MEDS: ATORVASTATIN CALCIUM 10MG TABLET PO SCH (20:55)
[2020-02-19] MEDS: FAMOTIDINE 20MG TABLET PO SCH (20:55)
[2020-02-20 00:06] VITALS: BP 135/61
[2020-02-20] MEDS: MICAFUNGIN 100 MG in SODIUM CHLORIDE 0.9% 100 ML IV SCH (01:06)
[2020-02-20] MEDS: VANCOMYCIN HCL 1000 MG/20 ML ORAL PO SCH ×5 (01:07→23:18)
[2020-02-20] MEDS: ALBUTEROL (0.083%) 2.5MG/3ML NEB HHN SCH ×4 (02:57→20:41)
[2020-02-20 04:31] VITALS: BP 114/44
[2020-02-20] MEDS: DEXTROSE 5% WATER 1,000 ML IV SCH (05:36)
[2020-02-20] MEDS: BLOOD SUGAR DIAGNOSTIC STRIP TEST SCH ×4 (07:20→21:40)
[2020-02-20 07:50] LABS: HEMATOCRIT. 25.2 % (36.0-48.0); HEMOGLOBIN. 7.7 g/dL (12.0-16.0); MEAN CORPUSCULAR HEMOGLOBIN 31.8 pg (28.0-32.0); MEAN CORPUSCULAR VOLUME 104.8 fL (81.0-99.0); MEAN PLATELET VOLUME 9.7 fl (7.4-10.4); PLATELET 406 x1000/uL (130-400); RED BLOOD CELL COUNT 2.41 mill/uL (4.2-5.4); RED CELL DISTRIBUTION WIDTH 18.3 % (11.6-14.6)
[2020-02-20 07:59] LABS: CHLORIDE 128 mEq/L (98-107)
[2020-02-20 08:00] VITALS: BP 109/50
[2020-02-20 08:04] LABS: PHOSPHORUS 4.4 mg/dL (2.5-4.9)
[2020-02-20] MEDS: CLOPIDOGREL 75MG TABLET PO SCH (08:32)
[2020-02-20] MEDS: ZINC SULFATE 220 MG ( 50 ) CAPSULE PO SCH (08:32)
[2020-02-20] MEDS: ASCORBIC ACID 500 MG TABLET PO SCH ×2 (08:32→21:40)
[2020-02-20] MEDS: MEROPENEM 500MG in NORMAL SALINE 50ML IV SCH ×2 (08:32→21:40)
[2020-02-20] MEDS: AMLODIPINE 10MG TABLET PO SCH (08:34)
[2020-02-20] MEDS: INSULIN LISPRO 100 UNITS/ML SUBCUT SCH ×4 (08:38→21:00)
[2020-02-20] MEDS: ACETYLCYSTEINE 100MG/ML 10% VIAL 4ML INH SCH (09:07)
[2020-02-20] MEDS ORDERED: POTASSIUM CHLORIDE INJ 40 MEQ in DEXT 5% WATER 250 ML IV NR (10:00)
[2020-02-20 12:00] VITALS: BP 116/55
[2020-02-20 13:38] LABS: PLATELET ESTIMATE SLIGHTLY INCREASED
[2020-02-20 16:00] VITALS: BP 143/61
[2020-02-20] MEDS: ENOXAPARIN 30MG/0.3ML SYR SUBCUT SCH (16:42)
[2020-02-20 17:39] LABS: BASOPHILS % 0.7 % (0.0-2.0); EOSINOPHILS % 21.4 % (0.0-5.0); HEMATOCRIT. 25.1 % (36.0-48.0); HEMOGLOBIN. 7.9 g/dL (12.0-16.0); LYMPHOCYTES % 15.1 % (20.0-50.0); MEAN CORPUSCULAR HEMOGLOBIN 31.8 pg (28.0-32.0); MEAN CORPUSCULAR VOLUME 101.4 fL (81.0-99.0); MEAN PLATELET VOLUME 9.4 fl (7.4-10.4); MONOCYTES % 4.7 % (2.0-8.0); NEUTROPHILS % 58.1 % (40.0-76.0); PLATELET 402 x1000/uL (130-400); RED BLOOD CELL COUNT 2.47 mill/uL (4.2-5.4); RED CELL DISTRIBUTION WIDTH 18.1 % (11.6-14.6)
[2020-02-20 20:00] VITALS: BP 106/38
[2020-02-20] MEDS: FAMOTIDINE 20MG TABLET PO SCH (21:40)
[2020-02-20] MEDS: ATORVASTATIN CALCIUM 10MG TABLET PO SCH (21:40)
[2020-02-21] VITALS: BP 123/47
[2020-02-21] MEDS: DEXTROSE 5% WATER 1,000 ML IV SCH ×2 (00:45→20:49)
[2020-02-21] MEDS: ALBUTEROL (0.083%) 2.5MG/3ML NEB HHN SCH ×3 (02:31→20:47)
[2020-02-21 04:30] VITALS: BP 116/47
[2020-02-21] MEDS: VANCOMYCIN HCL 1000 MG/20 ML ORAL PO SCH ×4 (05:20→23:55)
[2020-02-21] MEDS: BLOOD SUGAR DIAGNOSTIC STRIP TEST SCH ×4 (06:24→20:50)
[2020-02-21] MEDS: INSULIN LISPRO 100 UNITS/ML SUBCUT SCH ×4 (06:33→20:47)
[2020-02-21] MEDS: ACETYLCYSTEINE 100MG/ML 10% VIAL 4ML INH SCH ×2 (07:44→13:44)
[2020-02-21 08:00] VITALS: BP 133/59
[2020-02-21] MEDS: CLOPIDOGREL 75MG TABLET PO SCH (09:00)
[2020-02-21] MEDS: MEROPENEM 500MG in NORMAL SALINE 50ML IV SCH ×2 (09:20→20:49)
[2020-02-21] MEDS: ZINC SULFATE 220 MG ( 50 ) CAPSULE PO SCH (09:21)
[2020-02-21] MEDS: ASCORBIC ACID 500 MG TABLET PO SCH ×2 (09:21→20:50)
[2020-02-21] MEDS: AMLODIPINE 10MG TABLET PO SCH (09:21)
[2020-02-21] MEDS ORDERED: LORAZEPAM 2MG/ML CPJ IV PRN ×2 (10:15→16:40)
[2020-02-21] MEDS ORDERED: LIDOCAINE HCL 1% 20ML VIAL (Pyxis) INJ ONE (11:05)
[2020-02-21 12:00] VITALS: BP 105/45
[2020-02-21] MEDS: ACETAMINOPHEN 325MG TABLET PO PRN (13:30)
[2020-02-21 16:00] VITALS: BP 115/47
[2020-02-21] MEDS: ENOXAPARIN 30MG/0.3ML SYR SUBCUT SCH (16:00)
[2020-02-21 19:44] LABS: HEMATOCRIT 24.5 % (36.0-48.0); HEMOGLOBIN 7.4 g/dL (12.0-16.0); MEAN CORPUSCULAR HEMOGLOBIN 31.2 pg (28.0-32.0); MEAN CORPUSCULAR VOLUME 103.5 fL (81.0-99.0); PLATELET 371 x1000/uL (130-400); RED BLOOD CELL COUNT 2.37 mill/uL (4.2-5.4)
[2020-02-21 20:00] VITALS: BP 118/52
[2020-02-21] MEDS: FAMOTIDINE 20MG TABLET PO SCH (20:49)
[2020-02-21] MEDS: ATORVASTATIN CALCIUM 10MG TABLET PO SCH (20:49)
[2020-02-21 23:22] LABS: CLARITY URINE CLOUDY (CLEAR); COLOR URINE YELLOW (YELLOW); KETONES URINE NEGATIVE (NEGATIVE); LEUKOCYTE ESTERASE URINE 2+ (NEGATIVE); NITRITE URINE NEGATIVE (NEGATIVE); OCCULT BLOOD URINE 1+ (NEGATIVE); PH URINE 5.5 (4.5-8.0); PROTEIN URINE 1+ (NEGATIVE); SPECIFIC GRAVITY URINE 1.007 (1.005-1.030); UROBILINOGEN URINE 0.2 E.U./dL (0.2-1.0)
[2020-02-22] VITALS: BP 114/58
[2020-02-22] MEDS: DEXTROSE 5% WATER 1,000 ML IV SCH ×2 (00:01→16:20)
[2020-02-22] MEDS: ALBUTEROL (0.083%) 2.5MG/3ML NEB HHN SCH ×4 (00:55→20:56)
[2020-02-22 04:00] VITALS: BP 111/87
[2020-02-22] MEDS: VANCOMYCIN HCL 1000 MG/20 ML ORAL PO SCH ×3 (05:32→18:21)
[2020-02-22] MEDS: BLOOD SUGAR DIAGNOSTIC STRIP TEST SCH ×4 (06:27→21:00)
[2020-02-22 06:31] LABS: CHLORIDE 119 mEq/L (98-107)
[2020-02-22 06:40] LABS: PHOSPHORUS 3.7 mg/dL (2.5-4.9)
[2020-02-22 08:00] VITALS: BP 109/69
[2020-02-22 08:55] LABS: BASOPHILS % 0.8 % (0.0-2.0); EOSINOPHILS % 9.2 % (0.0-5.0); HEMATOCRIT. 25.1 % (36.0-48.0); LYMPHOCYTES % 10.7 % (20.0-50.0); MEAN CORPUSCULAR HEMOGLOBIN 31.7 pg (28.0-32.0); MEAN CORPUSCULAR VOLUME 106.3 fL (81.0-99.0); MEAN PLATELET VOLUME 9.6 fl (7.4-10.4); MONOCYTES % 1.6 % (2.0-8.0); NEUTROPHILS % 77.7 % (40.0-76.0); PLATELET 339 x1000/uL (130-400); RED BLOOD CELL COUNT 2.36 mill/uL (4.2-5.4); RED CELL DISTRIBUTION WIDTH 18.1 % (11.6-14.6)
[2020-02-22 08:57] LABS: HEMOGLOBIN. 7.5 g/dL (12.0-16.0)
[2020-02-22] MEDS: AMLODIPINE 10MG TABLET PO SCH (09:17)
[2020-02-22] MEDS: CLOPIDOGREL 75MG TABLET PO SCH (09:17)
[2020-02-22] MEDS: ZINC SULFATE 220 MG ( 50 ) CAPSULE PO SCH (09:17)
[2020-02-22] MEDS: ASCORBIC ACID 500 MG TABLET PO SCH ×2 (09:17→20:29)
[2020-02-22] MEDS: INSULIN LISPRO 100 UNITS/ML SUBCUT SCH ×4 (09:17→20:29)
[2020-02-22] MEDS: MEROPENEM 500MG in NORMAL SALINE 50ML IV SCH ×2 (09:17→20:30)
[2020-02-22 12:00] VITALS: BP 99/48
[2020-02-22] MEDS: POTASSIUM CHLORIDE 20MEQ TABLET SR PO SCH (12:17)
[2020-02-22 16:00] VITALS: BP 113/53
[2020-02-22] MEDS: ENOXAPARIN 30MG/0.3ML SYR SUBCUT SCH (16:20)
[2020-02-22 20:00] VITALS: BP 133/41
[2020-02-22] MEDS: FAMOTIDINE 20MG TABLET PO SCH (20:29)
[2020-02-22] MEDS: ATORVASTATIN CALCIUM 10MG TABLET PO SCH (20:29)
[2020-02-23] VITALS (29 sets, daily range): BP systolic 86–157; BP diastolic 46–99
[2020-02-23] MEDS: VANCOMYCIN HCL 1000 MG/20 ML ORAL PO SCH ×4 (00:27→19:12)
[2020-02-23] MEDS: ALBUTEROL (0.083%) 2.5MG/3ML NEB HHN SCH ×4 (00:53→20:27)
[2020-02-23] MEDS: DEXTROSE 5% WATER 1,000 ML IV SCH (05:25)
[2020-02-23 07:20] LABS: BASOPHILS % 0.9 % (0.0-2.0); EOSINOPHILS % 7.4 % (0.0-5.0); HEMATOCRIT. 21.8 % (36.0-48.0); LYMPHOCYTES % 9.9 % (20.0-50.0); MEAN CORPUSCULAR VOLUME 101.8 fL (81.0-99.0); MEAN PLATELET VOLUME 9.3 fl (7.4-10.4); NEUTROPHILS % 80.8 % (40.0-76.0); PLATELET 323 x1000/uL (130-400); RED BLOOD CELL COUNT 2.14 mill/uL (4.2-5.4); RED CELL DISTRIBUTION WIDTH 17.9 % (11.6-14.6)
[2020-02-23 07:35] LABS: HEMOGLOBIN. 6.6 g/dL (12.0-16.0)
[2020-02-23 07:47] LABS: CHLORIDE 115 mEq/L (98-107)
[2020-02-23] MEDS: BLOOD SUGAR DIAGNOSTIC STRIP TEST SCH ×4 (07:47→21:00)
[2020-02-23] MEDS: INSULIN LISPRO 100 UNITS/ML SUBCUT SCH ×4 (10:35→22:40)
[2020-02-23] MEDS: ASCORBIC ACID 500 MG TABLET PO SCH ×2 (10:36→21:18)
[2020-02-23] MEDS: CLOPIDOGREL 75MG TABLET PO SCH (10:36)
[2020-02-23] MEDS: AMLODIPINE 10MG TABLET PO SCH (10:36)
[2020-02-23] MEDS: POTASSIUM CHLORIDE 20MEQ TABLET SR PO SCH (10:36)
[2020-02-23] MEDS: MEROPENEM 500MG in NORMAL SALINE 50ML IV SCH ×2 (10:44→22:28)
[2020-02-23] MEDS ORDERED: EPOETIN ALFA 4000UNITS/ML VIAL SUBCUT ONE (10:45)
[2020-02-23] MEDS: ZINC SULFATE 220 MG ( 50 ) CAPSULE PO SCH (10:45)
[2020-02-23] MEDS: ENOXAPARIN 30MG/0.3ML SYR SUBCUT SCH (16:00)
[2020-02-23] MEDS ORDERED: DOPAMINE 400MG/250ML PREMIX 250 ML IV PRN (17:15)
[2020-02-23] MEDS ORDERED: DOPAMINE 400MG/250ML PREMIX 250 ML IV ONE (17:15)
[2020-02-23] MEDS ORDERED: DOPAMINE 800MG PREMIX (DOUBLE) 250 ML IV PRN (17:30)
[2020-02-23 17:42] LABS: BG BASE EXCESS -3.6 mmol/L (-2.0-2.0); BG CARBOXYHEMOGLOBIN 0.5 % (0.5-1.5); BG DEOXYHEMOGLOBIN 0.2 % (0.0-5.0); BG FRACTION INSPIRED OXYGEN 100; BG HCO3 ACT 21.4 mmol/L (22.0-26.0); BG METHEMOGLOBIN 0.3 % (0.0-1.5); BG OXYGEN SATURATION 99.8 % (92.0-98.5); BG PCO2 38.2 mmHg (35.0-45.0); BG PH 7.367 (7.350-7.450); BG PO2 447.3 mmHg (75.0-100.0); BG TOTAL HEMOGLOBIN 7.4 g/dL (12.0-18.0); BG VENT MODE VENT - AC
[2020-02-23 20:13] LABS: CHLORIDE 110 mEq/L (98-107)
[2020-02-23 20:17] LABS: INR 1.2; PROTHROMBIN TIME 12.9 sec (9.6-11.0)
[2020-02-23 20:20] LABS: BASOPHILS % 0.9 % (0.0-2.0); EOSINOPHILS % 5.2 % (0.0-5.0); HEMATOCRIT. 24.8 % (36.0-48.0); HEMOGLOBIN. 7.7 g/dL (12.0-16.0); LYMPHOCYTES % 8.4 % (20.0-50.0); MEAN CORPUSCULAR HEMOGLOBIN 31.1 pg (28.0-32.0); MEAN CORPUSCULAR VOLUME 99.6 fL (81.0-99.0); MEAN PLATELET VOLUME 9.4 fl (7.4-10.4); MONOCYTES % 0.8 % (2.0-8.0); NEUTROPHILS % 84.7 % (40.0-76.0); PLATELET 337 x1000/uL (130-400); RED BLOOD CELL COUNT 2.49 mill/uL (4.2-5.4); RED CELL DISTRIBUTION WIDTH 17.5 % (11.6-14.6)
[2020-02-23] MEDS ORDERED: EPOETIN ALFA-EPBX 10,000 UNIT/ML VIAL SUBCUT NR (21:00)
[2020-02-23] MEDS: FAMOTIDINE 20MG TABLET PO SCH (21:18)
[2020-02-23] MEDS: ATORVASTATIN CALCIUM 10MG TABLET PO SCH (21:18)
[2020-02-23] MEDS ORDERED: AMIKACIN SULFATE 250 MG in SODIUM CHLORIDE 0.9% 50 ML IV NR (22:30)
[2020-02-23] MEDS ORDERED: VANCOMYCIN 1 G PREMIX 200 ML IV NR (23:00)
[2020-02-24] VITALS (80 sets, daily range): BP systolic 82–149; BP diastolic 37–77
[2020-02-24] MEDS: ALBUTEROL (0.083%) 2.5MG/3ML NEB HHN SCH ×3 (01:35→14:18)
[2020-02-24 06:25] LABS: HEMOGLOBIN. 7.9 g/dL (12.0-16.0); MEAN CORPUSCULAR HEMOGLOBIN 31.2 pg (28.0-32.0); MEAN CORPUSCULAR VOLUME 98.8 fL (81.0-99.0); MEAN PLATELET VOLUME 9.6 fl (7.4-10.4); PLATELET 327 x1000/uL (130-400); RED BLOOD CELL COUNT 2.53 mill/uL (4.2-5.4); RED CELL DISTRIBUTION WIDTH 17.6 % (11.6-14.6)
[2020-02-24] MEDS: INSULIN LISPRO 100 UNITS/ML SUBCUT SCH ×4 (07:42→20:52)
[2020-02-24] MEDS: BLOOD SUGAR DIAGNOSTIC STRIP TEST SCH ×4 (07:42→20:53)
[2020-02-24] MEDS: VANCOMYCIN HCL 1000 MG/20 ML ORAL PO SCH ×4 (07:45→19:27)
[2020-02-24] MEDS: AMLODIPINE 10MG TABLET PO SCH (09:00)
[2020-02-24] MEDS: ASCORBIC ACID 500 MG TABLET PO SCH ×2 (09:08→20:58)
[2020-02-24] MEDS: CLOPIDOGREL 75MG TABLET PO SCH (09:08)
[2020-02-24] MEDS: POTASSIUM CHLORIDE 20MEQ TABLET SR PO SCH (09:08)
[2020-02-24] MEDS: ZINC SULFATE 220 MG ( 50 ) CAPSULE PO SCH (09:08)
[2020-02-24] MEDS ORDERED: LIDOCAINE HCL 1% 20ML VIAL (Pyxis) INJ ONE (09:09)
[2020-02-24] MEDS: DEXTROSE 5% WATER 1,000 ML IV SCH (09:10)
[2020-02-24] MEDS: MEROPENEM 500MG in NORMAL SALINE 50ML IV SCH (09:11)
[2020-02-24] MEDS ORDERED: POTASSIUM CHLORIDE INJ 40 MEQ in DEXT 5% WATER 250 ML IV SCH (11:30)
[2020-02-24 11:31] LABS: NUCLEATED RED BLOOD CELLS 6 /100 WBC; PLATELET ESTIMATE NORMAL
[2020-02-24] MEDS ORDERED: NOREPINEPHRINE 8 MG in DEXT 5% WATER 242 ML IV PRN (12:00)
[2020-02-24 12:55] LABS: *CREATININE RANDOM URINE 43.9 mg/dL (Not Estab.); MICROALBUMIN RANDOM URINE 221.8 ug/mL (Not Estab.)
[2020-02-24] MEDS: DOPAMINE 400MG/250ML PREMIX 250 ML IV PRN (14:17)
[2020-02-24] MEDS: ENOXAPARIN 30MG/0.3ML SYR SUBCUT SCH (16:37)
[2020-02-24] MEDS: IPRATROPIUM/ALBUTEROL 0.5-3(2.5)MG/3ML NEB HHN SCH (20:01)
[2020-02-24] MEDS: ATORVASTATIN CALCIUM 10MG TABLET PO SCH (20:58)
[2020-02-24] MEDS: FAMOTIDINE 20MG TABLET PO SCH (20:58)
[2020-02-24] MEDS: MEROPENEM 1000MG in NORMAL SALINE 100ML IV SCH (21:25)
[2020-02-25] VITALS (94 sets, daily range): BP systolic 103–176; BP diastolic 35–84
[2020-02-25] MEDS: ACETYLCYSTEINE 100MG/ML 10% VIAL 4ML INH SCH ×3 (00:18→16:35)
[2020-02-25] MEDS: IPRATROPIUM/ALBUTEROL 0.5-3(2.5)MG/3ML NEB HHN SCH ×6 (00:18→20:27)
[2020-02-25] MEDS: VANCOMYCIN HCL 1000 MG/20 ML ORAL PO SCH ×5 (01:15→23:55)
[2020-02-25] MEDS: DEXTROSE 5% WATER 1,000 ML IV SCH (04:45)
[2020-02-25 05:40] LABS: HEMATOCRIT. 23.2 % (36.0-48.0); HEMOGLOBIN. 7.3 g/dL (12.0-16.0); MEAN CORPUSCULAR VOLUME 98.1 fL (81.0-99.0); PLATELET 278 x1000/uL (130-400); RED BLOOD CELL COUNT 2.37 mill/uL (4.2-5.4); RED CELL DISTRIBUTION WIDTH 17.7 % (11.6-14.6)
[2020-02-25 05:44] LABS: CHLORIDE 105 mEq/L (98-107)
[2020-02-25 05:57] LABS: PHOSPHORUS 4.4 mg/dL (2.5-4.9)
[2020-02-25] MEDS: DOPAMINE 400MG/250ML PREMIX 250 ML IV PRN (05:59)
[2020-02-25] MEDS ORDERED: SODIUM POLYSTYRENE SULFONATE 15 G/60 ML BOT PO SCH ×2 (08:00→16:00)
[2020-02-25 08:38] LABS: CLARITY URINE TURBID (CLEAR); COLOR URINE DK YELLOW (YELLOW); KETONES URINE NEGATIVE (NEGATIVE); LEUKOCYTE ESTERASE URINE 1+ (NEGATIVE); NITRITE URINE NEGATIVE (NEGATIVE); OCCULT BLOOD URINE 2+ (NEGATIVE); PH URINE 5.5 (4.5-8.0); PROTEIN URINE 3+ (NEGATIVE); SPECIFIC GRAVITY URINE 1.021 (1.005-1.030); UROBILINOGEN URINE 0.2 E.U./dL (0.2-1.0)
[2020-02-25] MEDS: CLOPIDOGREL 75MG TABLET PO SCH (08:40)
[2020-02-25] MEDS: ZINC SULFATE 220 MG ( 50 ) CAPSULE PO SCH (08:40)
[2020-02-25] MEDS: BLOOD SUGAR DIAGNOSTIC STRIP TEST SCH ×4 (08:40→20:09)
[2020-02-25] MEDS: AMLODIPINE 10MG TABLET PO SCH (08:40)
[2020-02-25] MEDS: POTASSIUM CHLORIDE 20MEQ TABLET SR PO SCH (08:40)
[2020-02-25] MEDS: MEROPENEM 1000MG in NORMAL SALINE 100ML IV SCH ×2 (08:45→20:06)
[2020-02-25] MEDS: INSULIN LISPRO 100 UNITS/ML SUBCUT SCH ×4 (08:47→20:07)
[2020-02-25] MEDS: ASCORBIC ACID 500 MG TABLET PO SCH ×2 (08:53→20:06)
[2020-02-25 10:00] LABS: NUCLEATED RED BLOOD CELLS 9 /100 WBC; PLATELET ESTIMATE NORMAL
[2020-02-25] MEDS ORDERED: DEXTROSE 50% WATER 50ML SYRINGE IV NR (14:15)
[2020-02-25] MEDS ORDERED: INSULIN REGULAR (HUMULIN R) 300UNITS/3ML VIAL IV NR (14:15)
[2020-02-25] MEDS: ENOXAPARIN 30MG/0.3ML SYR SUBCUT SCH (16:37)
[2020-02-25] MEDS: ATORVASTATIN CALCIUM 10MG TABLET PO SCH (20:06)
[2020-02-25] MEDS: FAMOTIDINE 20MG TABLET PO SCH (20:06)
[2020-02-26] VITALS (92 sets, daily range): BP systolic 59–170; BP diastolic 32–119
[2020-02-26] MEDS: IPRATROPIUM/ALBUTEROL 0.5-3(2.5)MG/3ML NEB HHN SCH ×6 (00:25→20:06)
[2020-02-26] MEDS: ACETYLCYSTEINE 100MG/ML 10% VIAL 4ML INH SCH ×4 (00:25→20:07)
[2020-02-26 01:27] LABS: HEMOGLOBIN. 7.3 g/dL (12.0-16.0); MEAN CORPUSCULAR VOLUME 96.6 fL (81.0-99.0); MEAN PLATELET VOLUME 9.5 fl (7.4-10.4); PLATELET 240 x1000/uL (130-400); RED BLOOD CELL COUNT 2.28 mill/uL (4.2-5.4); RED CELL DISTRIBUTION WIDTH 16.9 % (11.6-14.6)
[2020-02-26 01:37] LABS: INR 1.2
[2020-02-26] MEDS: DEXTROSE 5% WATER 1,000 ML IV SCH (01:51)
[2020-02-26 03:01] LABS: PLATELET ESTIMATE NORMAL
[2020-02-26] MEDS: VANCOMYCIN HCL 1000 MG/20 ML ORAL PO SCH ×2 (05:30→11:27)
[2020-02-26 05:58] LABS: BASOPHILS % 0.9 % (0.0-2.0); EOSINOPHILS % 18.5 % (0.0-5.0); HEMATOCRIT. 24.2 % (36.0-48.0); LYMPHOCYTES % 10.2 % (20.0-50.0); MEAN CORPUSCULAR HEMOGLOBIN 31.7 pg (28.0-32.0); MEAN CORPUSCULAR VOLUME 95.9 fL (81.0-99.0); MEAN PLATELET VOLUME 9.5 fl (7.4-10.4); MONOCYTES % 1.9 % (2.0-8.0); NEUTROPHILS % 68.5 % (40.0-76.0); PLATELET 231 x1000/uL (130-400); RED BLOOD CELL COUNT 2.52 mill/uL (4.2-5.4); RED CELL DISTRIBUTION WIDTH 16.9 % (11.6-14.6)
[2020-02-26 06:06] LABS: CHLORIDE 105 mEq/L (98-107)
[2020-02-26 06:11] LABS: PHOSPHORUS 5.3 mg/dL (2.5-4.9)
[2020-02-26] MEDS: BLOOD SUGAR DIAGNOSTIC STRIP TEST SCH ×4 (08:00→21:00)
[2020-02-26] MEDS: INSULIN LISPRO 100 UNITS/ML SUBCUT SCH ×4 (08:00→20:26)
[2020-02-26 08:44] LABS: BG BASE EXCESS -6.8 mmol/L (-2.0-2.0); BG CARBOXYHEMOGLOBIN 0.3 % (0.5-1.5); BG DEOXYHEMOGLOBIN 4.9 % (0.0-5.0); BG FRACTION INSPIRED OXYGEN 40; BG HCO3 ACT 17.1 mmol/L (22.0-26.0); BG METHEMOGLOBIN 0.1 % (0.0-1.5); BG OXYGEN SATURATION 95.1 % (92.0-98.5); BG OXYHEMOGLOBIN 94.7 % (94.0-97.0); BG PCO2 28.4 mmHg (35.0-45.0); BG PH 7.398 (7.350-7.450); BG PO2 80.3 mmHg (75.0-100.0); BG SAMPLE SITE LEFT RADIAL; BG TOTAL HEMOGLOBIN 8.2 g/dL (12.0-18.0); BG VENT MODE VENT - AC
[2020-02-26] MEDS: POTASSIUM CHLORIDE 20MEQ TABLET SR PO SCH (09:00)
[2020-02-26] MEDS: ZINC SULFATE 220 MG ( 50 ) CAPSULE PO SCH (09:19)
[2020-02-26] MEDS: MEROPENEM 1000MG in NORMAL SALINE 100ML IV SCH ×2 (09:19→20:24)
[2020-02-26] MEDS: ASCORBIC ACID 500 MG TABLET PO SCH ×2 (09:19→20:24)
[2020-02-26] MEDS: AMLODIPINE 10MG TABLET PO SCH (09:19)
[2020-02-26] MEDS: DEXT 5%/0.45% NACL 1000ML 1,000 ML IV SCH ×2 (10:33→20:24)
[2020-02-26] MEDS: IRON SUCROSE COMPLEX 100 MG/5 ML ML IV SCH (13:03)
[2020-02-26 15:10] LABS: ANTI-NUCLEAR ANTIBODIES DIRECT Negative (Negative)
[2020-02-26] MEDS: ATORVASTATIN CALCIUM 10MG TABLET PO SCH (20:24)
[2020-02-26] MEDS: FAMOTIDINE 20MG TABLET PO SCH (20:24)
[2020-02-27] VITALS (48 sets, daily range): BP systolic 121–170; BP diastolic 43–77
[2020-02-27] MEDS: IPRATROPIUM/ALBUTEROL 0.5-3(2.5)MG/3ML NEB HHN SCH ×6 (00:30→20:00)
[2020-02-27 06:08] LABS: CHLORIDE 100 mEq/L (98-107)
[2020-02-27 06:41] LABS: MEAN CORPUSCULAR HEMOGLOBIN 31.6 pg (28.0-32.0); MEAN CORPUSCULAR VOLUME 96.2 fL (81.0-99.0); MEAN PLATELET VOLUME 9.8 fl (7.4-10.4); PLATELET 208 x1000/uL (130-400); RED BLOOD CELL COUNT 2.17 mill/uL (4.2-5.4); RED CELL DISTRIBUTION WIDTH 16.9 % (11.6-14.6)
[2020-02-27 06:43] LABS: HEMATOCRIT. 20.9 % (36.0-48.0); HEMOGLOBIN. 6.9 g/dL (12.0-16.0)
[2020-02-27] MEDS: DEXT 5%/0.45% NACL 1000ML 1,000 ML IV SCH (07:07)
[2020-02-27] MEDS ORDERED: DEXT 5%/0.9% NACL 1,000 ML IV SCH (08:00)
[2020-02-27] MEDS: ACETYLCYSTEINE 100MG/ML 10% VIAL 4ML INH SCH ×2 (08:13→15:48)
[2020-02-27] MEDS: ASCORBIC ACID 500 MG TABLET PO SCH ×2 (08:29→21:25)
[2020-02-27] MEDS: AMLODIPINE 10MG TABLET PO SCH (08:29)
[2020-02-27] MEDS: ZINC SULFATE 220 MG ( 50 ) CAPSULE PO SCH (08:29)
[2020-02-27] MEDS: SODIUM CHLORIDE 0.9% 1,000 ML IV SCH ×2 (08:31→21:29)
[2020-02-27 09:46] LABS: NUCLEATED RED BLOOD CELLS 2 /100 WBC
[2020-02-27 09:47] LABS: PLATELET ESTIMATE NORMAL
[2020-02-27 10:42] LABS: HEMATOCRIT. 21.2 % (36.0-48.0); MEAN CORPUSCULAR HEMOGLOBIN 31.2 pg (28.0-32.0); MEAN CORPUSCULAR VOLUME 95.4 fL (81.0-99.0); MEAN PLATELET VOLUME 10.2 fl (7.4-10.4); PLATELET 222 x1000/uL (130-400); RED BLOOD CELL COUNT 2.23 mill/uL (4.2-5.4); RED CELL DISTRIBUTION WIDTH 17.1 % (11.6-14.6)
[2020-02-27 11:23] LABS: NUCLEATED RED BLOOD CELLS 1 /100 WBC
[2020-02-27 11:24] LABS: PLATELET ESTIMATE NORMAL
[2020-02-27] MEDS: INSULIN LISPRO 100 UNITS/ML SUBCUT SCH ×2 (12:00→17:32)
[2020-02-27] MEDS: BLOOD SUGAR DIAGNOSTIC STRIP TEST SCH ×2 (12:00→17:32)
[2020-02-27] MEDS: IRON SUCROSE COMPLEX 100 MG/5 ML ML IV SCH (12:03)
[2020-02-27 13:07] LABS: ANTI-MYELOPEROXIDASE AB < 9.0 U/mL (0.0-9.0); ANTI-PROTEINASE 3 ABS < 3.5 U/mL (0.0-3.5)
[2020-02-27] MEDS: METOCLOPRAMIDE HCL 10MG/2ML VIAL IV SCH (17:37)
[2020-02-27] MEDS: VANCOMYCIN HCL 1000 MG/20 ML ORAL PO SCH (17:38)
[2020-02-27 18:47] LABS: HEMATOCRIT 24.6 % (36.0-48.0); HEMOGLOBIN 8.3 g/dL (12.0-16.0); MEAN CORPUSCULAR HEMOGLOBIN 30.9 pg (28.0-32.0); MEAN CORPUSCULAR VOLUME 91.9 fL (81.0-99.0); PLATELET 191 x1000/uL (130-400); RED BLOOD CELL COUNT 2.67 mill/uL (4.2-5.4); RED CELL DISTRIBUTION WIDTH 18.2 % (11.6-14.6)
[2020-02-27] MEDS: ATORVASTATIN CALCIUM 10MG TABLET PO SCH (21:25)
[2020-02-27] MEDS: FAMOTIDINE 20MG TABLET PO SCH (21:25)
[2020-02-27] MEDS ORDERED: PROPOFOL 10MG/ML 100ML 100 ML IV PRN (23:45)
[2020-02-28] VITALS (47 sets, daily range): BP systolic 107–164; BP diastolic 42–90
[2020-02-28] MEDS: ACETYLCYSTEINE 100MG/ML 10% VIAL 4ML INH SCH ×3 (00:02→16:04)
[2020-02-28] MEDS: IPRATROPIUM/ALBUTEROL 0.5-3(2.5)MG/3ML NEB HHN SCH ×6 (00:02→20:09)
[2020-02-28] MEDS: BLOOD SUGAR DIAGNOSTIC STRIP TEST SCH ×5 (00:10→23:48)
[2020-02-28] MEDS: METOCLOPRAMIDE HCL 10MG/2ML VIAL IV SCH ×4 (00:15→18:02)
[2020-02-28] MEDS: VANCOMYCIN HCL 1000 MG/20 ML ORAL PO SCH ×4 (00:15→18:02)
[2020-02-28] MEDS: INSULIN LISPRO 100 UNITS/ML SUBCUT SCH ×4 (00:18→18:04)
[2020-02-28] MEDS: ZINC SULFATE 220 MG ( 50 ) CAPSULE PO SCH (09:54)
[2020-02-28] MEDS: ASCORBIC ACID 500 MG TABLET PO SCH ×2 (09:54→21:16)
[2020-02-28] MEDS: AMLODIPINE 10MG TABLET PO SCH (09:55)
[2020-02-28] MEDS: SODIUM CHLORIDE 0.9% 1,000 ML IV SCH (11:00)
[2020-02-28] MEDS ORDERED: NOREPINEPHRINE 8 MG in SODIUM CHLORIDE 0.9% 242 ML IV PRN (12:16)
[2020-02-28] MEDS: IRON SUCROSE COMPLEX 100 MG/5 ML ML IV SCH (12:41)
[2020-02-28] MEDS: ATORVASTATIN CALCIUM 10MG TABLET PO SCH (21:16)
[2020-02-28] MEDS: FAMOTIDINE 20MG TABLET PO SCH (21:16)
[2020-02-28] MEDS: PROPOFOL 10MG/ML 100ML 100 ML IV PRN (21:59)
[2020-02-29] VITALS (43 sets, daily range): BP systolic 84–152; BP diastolic 23–101
[2020-02-29] MEDS: IPRATROPIUM/ALBUTEROL 0.5-3(2.5)MG/3ML NEB HHN SCH ×6 (00:07→20:18)
[2020-02-29] MEDS: ACETYLCYSTEINE 100MG/ML 10% VIAL 4ML INH SCH ×4 (00:10→22:00)
[2020-02-29] MEDS: VANCOMYCIN HCL 1000 MG/20 ML ORAL PO SCH ×4 (00:22→18:04)
[2020-02-29] MEDS: METOCLOPRAMIDE HCL 10MG/2ML VIAL IV SCH ×4 (00:22→18:03)
[2020-02-29] MEDS: INSULIN LISPRO 100 UNITS/ML SUBCUT SCH ×4 (00:23→18:00)
[2020-02-29] MEDS: SODIUM CHLORIDE 0.9% 1,000 ML IV SCH ×2 (00:27→07:51)
[2020-02-29 05:59] LABS: CHLORIDE 109 mEq/L (98-107)
[2020-02-29 06:06] LABS: HEMATOCRIT. 23.3 % (36.0-48.0); HEMOGLOBIN. 7.7 g/dL (12.0-16.0); MEAN CORPUSCULAR HEMOGLOBIN 30.7 pg (28.0-32.0); MEAN PLATELET VOLUME 9.7 fl (7.4-10.4); PLATELET 171 x1000/uL (130-400); RED CELL DISTRIBUTION WIDTH 18.7 % (11.6-14.6)
[2020-02-29] MEDS: BLOOD SUGAR DIAGNOSTIC STRIP TEST SCH ×3 (06:19→18:00)
[2020-02-29] MEDS: ZINC SULFATE 220 MG ( 50 ) CAPSULE PO SCH (08:27)
[2020-02-29] MEDS: ASCORBIC ACID 500 MG TABLET PO SCH ×2 (08:27→21:35)
[2020-02-29] MEDS: AMLODIPINE 10MG TABLET PO SCH (08:28)
[2020-02-29 09:12] LABS: BG BASE EXCESS -10.6 mmol/L (-2.0-2.0); BG CARBOXYHEMOGLOBIN 0.3 % (0.5-1.5); BG DEOXYHEMOGLOBIN 8.5 % (0.0-5.0); BG FRACTION INSPIRED OXYGEN 40; BG METHEMOGLOBIN 0.1 % (0.0-1.5); BG OXYGEN SATURATION 91.5 % (92.0-98.5); BG OXYHEMOGLOBIN 91.1 % (94.0-97.0); BG PCO2 32.6 mmHg (35.0-45.0); BG PH 7.282 (7.350-7.450); BG SAMPLE SITE LEFT RADIAL; BG TOTAL HEMOGLOBIN 11.1 g/dL (12.0-18.0); BG VENT MODE VENT - AC
[2020-02-29] MEDS: CITRIC ACID/SODIUM CITRATE SOLN 30ML UDC PO SCH ×2 (12:59→21:35)
[2020-02-29 13:41] LABS: NUCLEATED RED BLOOD CELLS 1 /100 WBC; PLATELET ESTIMATE NORMAL
[2020-02-29] MEDS: ATORVASTATIN CALCIUM 10MG TABLET PO SCH (21:34)
[2020-02-29] MEDS: FAMOTIDINE 20MG TABLET PO SCH (21:34)
[2020-02-29] MEDS: AMMONIUM LACTATE 12% LOTION 240ML TOP SCH (22:01)
[2020-03-01] VITALS (71 sets, daily range): BP systolic 68–141; BP diastolic 23–78
[2020-03-01] MEDS ORDERED: PROPOFOL 10MG/ML 100ML 100 ML IV PRN
[2020-03-01] MEDS: IPRATROPIUM/ALBUTEROL 0.5-3(2.5)MG/3ML NEB HHN SCH ×7 (00:25→23:28)
[2020-03-01] MEDS: METOCLOPRAMIDE HCL 10MG/2ML VIAL IV SCH ×4 (00:48→17:58)
[2020-03-01] MEDS: VANCOMYCIN HCL 1000 MG/20 ML ORAL PO SCH ×4 (00:51→17:58)
[2020-03-01] MEDS: INSULIN LISPRO 100 UNITS/ML SUBCUT SCH ×4 (01:45→17:59)
[2020-03-01] MEDS: PROPOFOL 10MG/ML 100ML 100 ML IV PRN ×2 (03:48→03:53)
[2020-03-01 05:59] LABS: HEMATOCRIT. 26.3 % (36.0-48.0); HEMOGLOBIN. 8.7 g/dL (12.0-16.0); MEAN CORPUSCULAR HEMOGLOBIN 31.3 pg (28.0-32.0); MEAN CORPUSCULAR VOLUME 94.4 fL (81.0-99.0); MEAN PLATELET VOLUME 9.8 fl (7.4-10.4); PLATELET 159 x1000/uL (130-400); RED BLOOD CELL COUNT 2.78 mill/uL (4.2-5.4)
[2020-03-01] MEDS: BLOOD SUGAR DIAGNOSTIC STRIP TEST SCH ×4 (06:00→17:58)
[2020-03-01 06:05] LABS: CHLORIDE 111 mEq/L (98-107)
[2020-03-01] MEDS: DOPAMINE 400MG/250ML PREMIX 250 ML IV PRN ×2 (07:47→22:59)
[2020-03-01 08:11] LABS: PLATELET ESTIMATE NORMAL
[2020-03-01] MEDS: AMLODIPINE 10MG TABLET PO SCH (09:00)
[2020-03-01] MEDS: ASCORBIC ACID 500 MG TABLET PO SCH ×2 (09:56→21:37)
[2020-03-01] MEDS: ZINC SULFATE 220 MG ( 50 ) CAPSULE PO SCH (09:56)
[2020-03-01] MEDS: AMMONIUM LACTATE 12% LOTION 240ML TOP SCH ×2 (09:57→21:38)
[2020-03-01] MEDS: CITRIC ACID/SODIUM CITRATE SOLN 30ML UDC PO SCH ×2 (09:58→21:35)
[2020-03-01 12:08] LABS: HEMATOCRIT 28.6 % (36.0-48.0); HEMOGLOBIN 9.3 g/dL (12.0-16.0); MEAN CORPUSCULAR HEMOGLOBIN 29.9 pg (28.0-32.0); MEAN CORPUSCULAR VOLUME 92.3 fL (81.0-99.0); PLATELET 188 x1000/uL (130-400); RED CELL DISTRIBUTION WIDTH 18.7 % (11.6-14.6)
[2020-03-01 12:27] LABS: CHLORIDE 109 mEq/L (98-107)
[2020-03-01 13:14] LABS: PHOSPHORUS 7.9 mg/dL (2.5-4.9)
[2020-03-01] MEDS: CALCIUM ACETATE 667MG CAPSULE PO SCH ×2 (13:48→17:58)
[2020-03-01 14:11] LABS: ATYPICAL P-ANCA <1:20 titer (Neg:<1:20); CYTOPLASMIC C-ANCA <1:20 titer (Neg:<1:20); PERINUCLEAR P-ANCA <1:20 titer (Neg:<1:20)
[2020-03-01] MEDS: FENTANYL CITRATE/PF 1,000 MCG in SODIUM CHLORIDE 0.9% 80 ML IV PRN (15:25)
[2020-03-01] MEDS: ATORVASTATIN CALCIUM 10MG TABLET PO SCH (21:37)
[2020-03-01] MEDS: FAMOTIDINE 20MG TABLET PO SCH (21:37)
[2020-03-02] VITALS (76 sets, daily range): BP systolic 59–186; BP diastolic 27–76
[2020-03-02] MEDS: INSULIN LISPRO 100 UNITS/ML SUBCUT SCH ×4 (00:37→18:00)
[2020-03-02] MEDS: VANCOMYCIN HCL 1000 MG/20 ML ORAL PO SCH ×4 (00:38→17:58)
[2020-03-02] MEDS: METOCLOPRAMIDE HCL 10MG/2ML VIAL IV SCH ×4 (00:38→17:58)
[2020-03-02] MEDS: IPRATROPIUM/ALBUTEROL 0.5-3(2.5)MG/3ML NEB HHN SCH ×6 (04:04→23:59)
[2020-03-02] MEDS: BLOOD SUGAR DIAGNOSTIC STRIP TEST SCH ×4 (06:00→18:12)
[2020-03-02 06:30] LABS: HEMATOCRIT. 31.7 % (36.0-48.0); HEMOGLOBIN. 10.4 g/dL (12.0-16.0); MEAN CORPUSCULAR HEMOGLOBIN 30.8 pg (28.0-32.0); MEAN CORPUSCULAR VOLUME 93.6 fL (81.0-99.0); MEAN PLATELET VOLUME 9.9 fl (7.4-10.4); PLATELET 155 x1000/uL (130-400); RED BLOOD CELL COUNT 3.38 mill/uL (4.2-5.4); RED CELL DISTRIBUTION WIDTH 19.2 % (11.6-14.6)
[2020-03-02] MEDS: FENTANYL CITRATE/PF 1,000 MCG in SODIUM CHLORIDE 0.9% 80 ML IV PRN (06:57)
[2020-03-02] MEDS: CITRIC ACID/SODIUM CITRATE SOLN 30ML UDC PO SCH ×2 (09:07→22:11)
[2020-03-02] MEDS: POTASSIUM CHLORIDE 20MEQ TABLET SR PO SCH (09:08)
[2020-03-02] MEDS: AMLODIPINE 10MG TABLET PO SCH (09:08)
[2020-03-02] MEDS: AMMONIUM LACTATE 12% LOTION 240ML TOP SCH ×2 (09:08→21:00)
[2020-03-02] MEDS: ZINC SULFATE 220 MG ( 50 ) CAPSULE PO SCH (09:08)
[2020-03-02] MEDS: CALCIUM ACETATE 667MG CAPSULE PO SCH ×3 (09:08→17:58)
[2020-03-02] MEDS: ASCORBIC ACID 500 MG TABLET PO SCH ×2 (09:08→22:10)
[2020-03-02] MEDS: DOPAMINE 400MG/250ML PREMIX 250 ML IV PRN ×2 (09:42→19:05)
[2020-03-02 10:40] LABS: BG BASE EXCESS -10.2 mmol/L (-2.0-2.0); BG CARBOXYHEMOGLOBIN 0.2 % (0.5-1.5); BG HCO3 ACT 16.1 mmol/L (22.0-26.0); BG OXYHEMOGLOBIN 90.8 % (94.0-97.0); BG PCO2 37.1 mmHg (35.0-45.0); BG PH 7.256 (7.350-7.450); BG PO2 73.1 mmHg (75.0-100.0); BG SAMPLE SITE LEFT RADIAL; BG TOTAL HEMOGLOBIN 12.5 g/dL (12.0-18.0); BG VENT MODE VENT - AC
[2020-03-02] MEDS ORDERED: SODIUM BICARBONATE 8.4% 1 MEQ/ML 50ML SYR IV SCH (11:00)
[2020-03-02 11:19] LABS: NUCLEATED RED BLOOD CELLS 4 /100 WBC; PLATELET ESTIMATE NORMAL
[2020-03-02] MEDS: DEXTROSE 50% WATER 50ML SYRINGE IV PRN (12:13)
[2020-03-02 13:08] LABS: BG CARBOXYHEMOGLOBIN 0.2 % (0.5-1.5); BG DEOXYHEMOGLOBIN 9.9 % (0.0-5.0); BG HCO3 ACT 18.4 mmol/L (22.0-26.0); BG METHEMOGLOBIN 0.2 % (0.0-1.5); BG OXYGEN SATURATION 90.1 % (92.0-98.5); BG OXYHEMOGLOBIN 89.7 % (94.0-97.0); BG PCO2 36.2 mmHg (35.0-45.0); BG PH 7.323 (7.350-7.450); BG PO2 69.7 mmHg (75.0-100.0); BG SAMPLE SITE LEFT RADIAL; BG TOTAL HEMOGLOBIN 11.1 g/dL (12.0-18.0); BG VENT MODE VENT - AC
[2020-03-02] MEDS: ATORVASTATIN CALCIUM 10MG TABLET PO SCH (22:11)
[2020-03-02] MEDS: FAMOTIDINE 20MG TABLET PO SCH (22:11)
[2020-03-03] VITALS (110 sets, daily range): BP systolic 78–177; BP diastolic 25–75
[2020-03-03] MEDS: BLOOD SUGAR DIAGNOSTIC STRIP TEST SCH ×4 (00:22→17:13)
[2020-03-03] MEDS: DEXTROSE 50% WATER 50ML SYRINGE IV PRN ×3 (00:24→17:13)
[2020-03-03] MEDS: METOCLOPRAMIDE HCL 10MG/2ML VIAL IV SCH ×2 (00:28→07:01)
[2020-03-03] MEDS: VANCOMYCIN HCL 1000 MG/20 ML ORAL PO SCH ×4 (00:29→17:13)
[2020-03-03] MEDS: DOPAMINE 400MG/250ML PREMIX 250 ML IV PRN (01:26)
[2020-03-03] MEDS: IPRATROPIUM/ALBUTEROL 0.5-3(2.5)MG/3ML NEB HHN SCH ×5 (03:49→20:36)
[2020-03-03 05:59] LABS: HEMATOCRIT. 27.9 % (36.0-48.0); HEMOGLOBIN. 9.4 g/dL (12.0-16.0); MEAN CORPUSCULAR HEMOGLOBIN 30.9 pg (28.0-32.0); MEAN PLATELET VOLUME 9.6 fl (7.4-10.4); PLATELET 155 x1000/uL (130-400); RED BLOOD CELL COUNT 3.03 mill/uL (4.2-5.4); RED CELL DISTRIBUTION WIDTH 18.2 % (11.6-14.6)
[2020-03-03] MEDS: INSULIN LISPRO 100 UNITS/ML SUBCUT SCH ×4 (06:00→17:13)
[2020-03-03 06:09] LABS: CHLORIDE 108 mEq/L (98-107)
[2020-03-03 06:21] LABS: PHOSPHORUS 5.1 mg/dL (2.5-4.9)
[2020-03-03] MEDS: AMLODIPINE 10MG TABLET PO SCH (09:00)
[2020-03-03 09:07] LABS: IMMUNOGLOBULIN A 402 mg/dL (87-352); IMMUNOGLOBULIN G 1943 mg/dL (586-1602); IMMUNOGLOBULIN M 67 mg/dL (26-217)
[2020-03-03] MEDS: ASCORBIC ACID 500 MG TABLET PO SCH ×2 (09:52→21:09)
[2020-03-03] MEDS: ZINC SULFATE 220 MG ( 50 ) CAPSULE PO SCH (09:52)
[2020-03-03] MEDS: CALCIUM ACETATE 667MG CAPSULE PO SCH ×3 (09:52→17:13)
[2020-03-03] MEDS: AMMONIUM LACTATE 12% LOTION 240ML TOP SCH ×2 (09:53→21:11)
[2020-03-03 20:16] LABS: NUCLEATED RED BLOOD CELLS 3 /100 WBC; PLATELET ESTIMATE NORMAL
[2020-03-03] MEDS: FAMOTIDINE 20MG TABLET PO SCH (21:09)
[2020-03-03] MEDS: ATORVASTATIN CALCIUM 10MG TABLET PO SCH (21:09)
[2020-03-04] VITALS (47 sets, daily range): BP systolic 93–132; BP diastolic 24–72
[2020-03-04] MEDS: IPRATROPIUM/ALBUTEROL 0.5-3(2.5)MG/3ML NEB HHN SCH ×6 (00:18→20:19)
[2020-03-04 05:15] LABS: BASOPHILS % 0.5 % (0.0-2.0); EOSINOPHILS % 10.6 % (0.0-5.0); HEMATOCRIT. 24.5 % (36.0-48.0); HEMOGLOBIN. 8.1 g/dL (12.0-16.0); LYMPHOCYTES % 13.6 % (20.0-50.0); MEAN CORPUSCULAR HEMOGLOBIN 30.9 pg (28.0-32.0); MEAN CORPUSCULAR VOLUME 92.9 fL (81.0-99.0); MEAN PLATELET VOLUME 9.8 fl (7.4-10.4); MONOCYTES % 3.7 % (2.0-8.0); NEUTROPHILS % 71.6 % (40.0-76.0); PLATELET 133 x1000/uL (130-400); RED BLOOD CELL COUNT 2.64 mill/uL (4.2-5.4); RED CELL DISTRIBUTION WIDTH 18.6 % (11.6-14.6)
[2020-03-04 05:19] LABS: CHLORIDE 110 mEq/L (98-107)
[2020-03-04 05:28] LABS: PHOSPHORUS 3.9 mg/dL (2.5-4.9)
[2020-03-04] MEDS: BLOOD SUGAR DIAGNOSTIC STRIP TEST SCH ×5 (06:00→23:53)
[2020-03-04] MEDS: INSULIN LISPRO 100 UNITS/ML SUBCUT SCH ×5 (06:00→23:53)
[2020-03-04] MEDS: CALCIUM ACETATE 667MG CAPSULE PO SCH ×3 (08:20→18:22)
[2020-03-04] MEDS: ZINC SULFATE 220 MG ( 50 ) CAPSULE PO SCH (09:00)
[2020-03-04] MEDS: ASCORBIC ACID 500 MG TABLET PO SCH ×2 (09:00→20:17)
[2020-03-04] MEDS: AMMONIUM LACTATE 12% LOTION 240ML TOP SCH ×2 (09:00→20:18)
[2020-03-04] MEDS: DEXTROSE 50% WATER 50ML SYRINGE IV PRN (12:58)
[2020-03-04] MEDS ORDERED: MIDAZOLAM HCL 2 MG/2 ML VIAL ONE (16:20)
[2020-03-04] MEDS: FAMOTIDINE 20MG TABLET PO SCH (20:17)
[2020-03-04] MEDS: ATORVASTATIN CALCIUM 10MG TABLET PO SCH (20:18)
[2020-03-05] VITALS (84 sets, daily range): BP systolic 73–186; BP diastolic 25–133
[2020-03-05] MEDS: IPRATROPIUM/ALBUTEROL 0.5-3(2.5)MG/3ML NEB HHN SCH ×6 (00:14→19:43)
[2020-03-05] MEDS: ACETAMINOPHEN 325MG TABLET PO PRN (01:55)
[2020-03-05] MEDS ORDERED: VANCOMYCIN 1 G PREMIX 200 ML IV SCH (05:00)
[2020-03-05] MEDS ORDERED: MEROPENEM 500MG in NORMAL SALINE 50ML IV SCH (05:00)
[2020-03-05 05:39] LABS: HEMATOCRIT. 23.5 % (36.0-48.0); HEMOGLOBIN. 7.7 g/dL (12.0-16.0); MEAN CORPUSCULAR HEMOGLOBIN 30.9 pg (28.0-32.0); MEAN CORPUSCULAR VOLUME 94.3 fL (81.0-99.0); MEAN PLATELET VOLUME 10.6 fl (7.4-10.4); PLATELET 132 x1000/uL (130-400); RED BLOOD CELL COUNT 2.49 mill/uL (4.2-5.4); RED CELL DISTRIBUTION WIDTH 19.2 % (11.6-14.6)
[2020-03-05] MEDS: BLOOD SUGAR DIAGNOSTIC STRIP TEST SCH ×4 (05:47→23:21)
[2020-03-05] MEDS: INSULIN LISPRO 100 UNITS/ML SUBCUT SCH ×4 (05:47→23:21)
[2020-03-05] MEDS: CALCIUM ACETATE 667MG CAPSULE PO SCH ×3 (09:01→17:23)
[2020-03-05] MEDS: ZINC SULFATE 220 MG ( 50 ) CAPSULE PO SCH (09:01)
[2020-03-05] MEDS: ASCORBIC ACID 500 MG TABLET PO SCH ×2 (09:01→20:15)
[2020-03-05] MEDS: AMMONIUM LACTATE 12% LOTION 240ML TOP SCH ×2 (09:02→20:15)
[2020-03-05 09:05] LABS: BG BASE EXCESS 1.5 mmol/L (-2.0-2.0); BG CARBOXYHEMOGLOBIN 0.2 % (0.5-1.5); BG FRACTION INSPIRED OXYGEN 40; BG HCO3 ACT 26.6 mmol/L (22.0-26.0); BG METHEMOGLOBIN 0.4 % (0.0-1.5); BG OXYHEMOGLOBIN 94.4 % (94.0-97.0); BG PCO2 44.3 mmHg (35.0-45.0); BG PH 7.396 (7.350-7.450); BG SAMPLE SITE LEFT RADIAL; BG VENT MODE VENT - AC
[2020-03-05] MEDS ORDERED: ALBUMIN HUMAN 25GM/100ML (25%) IV SCH (10:00)
[2020-03-05] MEDS: NOREPINEPHRINE 8 MG in DEXT 5% WATER 242 ML IV PRN ×2 (10:43→19:10)
[2020-03-05 13:19] LABS: NUCLEATED RED BLOOD CELLS 21 /100 WBC
[2020-03-05 13:21] LABS: PLATELET ESTIMATE NORMAL
[2020-03-05] MEDS: FAMOTIDINE 20MG TABLET PO SCH (20:15)
[2020-03-05] MEDS: ATORVASTATIN CALCIUM 10MG TABLET PO SCH (20:15)
[2020-03-05] MEDS: EPOETIN ALFA-EPBX 4,000 UNIT/ML VIAL SUBCUT SCH (22:53)
[2020-03-06] VITALS (93 sets, daily range): BP systolic 78–192; BP diastolic 26–84
[2020-03-06] MEDS: IPRATROPIUM/ALBUTEROL 0.5-3(2.5)MG/3ML NEB HHN SCH ×6 (00:09→21:39)
[2020-03-06] MEDS: BLOOD SUGAR DIAGNOSTIC STRIP TEST SCH ×3 (05:12→18:06)
[2020-03-06] MEDS: INSULIN LISPRO 100 UNITS/ML SUBCUT SCH ×3 (05:12→18:00)
[2020-03-06] MEDS: NOREPINEPHRINE 8 MG in DEXT 5% WATER 242 ML IV PRN (05:13)
[2020-03-06 05:35] LABS: HEMATOCRIT. 26.4 % (36.0-48.0); HEMOGLOBIN. 8.7 g/dL (12.0-16.0); MEAN CORPUSCULAR HEMOGLOBIN 31.1 pg (28.0-32.0); MEAN CORPUSCULAR VOLUME 93.7 fL (81.0-99.0); MEAN PLATELET VOLUME 9.2 fl (7.4-10.4); RED BLOOD CELL COUNT 2.81 mill/uL (4.2-5.4)
[2020-03-06 05:45] LABS: CHLORIDE 106 mEq/L (98-107)
[2020-03-06 05:54] LABS: PHOSPHORUS 3.3 mg/dL (2.5-4.9)
[2020-03-06 07:08] LABS: PLATELET 31 x1000/uL (130-400)
[2020-03-06] MEDS: ZINC SULFATE 220 MG ( 50 ) CAPSULE PO SCH (08:48)
[2020-03-06] MEDS: ASCORBIC ACID 500 MG TABLET PO SCH ×2 (08:49→21:11)
[2020-03-06] MEDS: CALCIUM ACETATE 667MG CAPSULE PO SCH ×3 (08:49→18:06)
[2020-03-06] MEDS: AMMONIUM LACTATE 12% LOTION 240ML TOP SCH ×2 (09:42→21:12)
[2020-03-06 10:00] LABS: HEMATOCRIT. 26.8 % (36.0-48.0); HEMOGLOBIN. 8.8 g/dL (12.0-16.0); MEAN CORPUSCULAR HEMOGLOBIN 30.3 pg (28.0-32.0); MEAN CORPUSCULAR VOLUME 92.2 fL (81.0-99.0); MEAN PLATELET VOLUME 9.1 fl (7.4-10.4); PLATELET 93 x1000/uL (130-400); RED BLOOD CELL COUNT 2.91 mill/uL (4.2-5.4)
[2020-03-06 11:41] LABS: NUCLEATED RED BLOOD CELLS 5 /100 WBC; PLATELET ESTIMATE MARKEDLY DECREASED
[2020-03-06 12:46] LABS: NUCLEATED RED BLOOD CELLS 3 /100 WBC
[2020-03-06 12:47] LABS: PLATELET ESTIMATE DECREASED
[2020-03-06] MEDS: DEXTROSE 50% WATER 50ML SYRINGE IV PRN (18:44)
[2020-03-06] MEDS: FAMOTIDINE 20MG TABLET PO SCH (21:11)
[2020-03-06] MEDS: ATORVASTATIN CALCIUM 10MG TABLET PO SCH (21:11)
[2020-03-07] VITALS (57 sets, daily range): BP systolic 62–147; BP diastolic 30–76
[2020-03-07] MEDS: IPRATROPIUM/ALBUTEROL 0.5-3(2.5)MG/3ML NEB HHN SCH ×6 (00:14→20:19)
[2020-03-07] MEDS: INSULIN LISPRO 100 UNITS/ML SUBCUT SCH ×5 (00:40→23:42)
[2020-03-07 04:49] LABS: PHOSPHORUS 2.8 mg/dL (2.5-4.9)
[2020-03-07 04:50] LABS: HEMATOCRIT. 26.2 % (36.0-48.0); HEMOGLOBIN. 8.5 g/dL (12.0-16.0); MEAN CORPUSCULAR HEMOGLOBIN 30.2 pg (28.0-32.0); MEAN CORPUSCULAR VOLUME 93.2 fL (81.0-99.0); MEAN PLATELET VOLUME 9.3 fl (7.4-10.4); PLATELET 94 x1000/uL (130-400); RED BLOOD CELL COUNT 2.81 mill/uL (4.2-5.4); RED CELL DISTRIBUTION WIDTH 17.5 % (11.6-14.6)
[2020-03-07] MEDS: BLOOD SUGAR DIAGNOSTIC STRIP TEST SCH ×5 (05:13→23:42)
[2020-03-07 07:32] LABS: NUCLEATED RED BLOOD CELLS 4 /100 WBC; PLATELET ESTIMATE DECREASED
[2020-03-07 07:38] LABS: BG BASE EXCESS 3.7 mmol/L (-2.0-2.0); BG CARBOXYHEMOGLOBIN 0.3 % (0.5-1.5); BG DEOXYHEMOGLOBIN 6.3 % (0.0-5.0); BG HCO3 ACT 27.1 mmol/L (22.0-26.0); BG METHEMOGLOBIN 0.1 % (0.0-1.5); BG OXYGEN SATURATION 93.7 % (92.0-98.5); BG OXYHEMOGLOBIN 93.3 % (94.0-97.0); BG PCO2 36.6 mmHg (35.0-45.0); BG PH 7.488 (7.350-7.450); BG PO2 67.5 mmHg (75.0-100.0); BG SAMPLE SITE LEFT RADIAL; BG TOTAL HEMOGLOBIN 9.5 g/dL (12.0-18.0); BG VENT MODE VENT - AC
[2020-03-07] MEDS: CALCIUM ACETATE 667MG CAPSULE PO SCH ×3 (08:58→17:59)
[2020-03-07] MEDS: AMMONIUM LACTATE 12% LOTION 240ML TOP SCH ×2 (08:58→20:34)
[2020-03-07] MEDS: ZINC SULFATE 220 MG ( 50 ) CAPSULE PO SCH (08:58)
[2020-03-07] MEDS: ASCORBIC ACID 500 MG TABLET PO SCH ×2 (08:58→20:34)
[2020-03-07] MEDS: ACETAMINOPHEN 325MG TABLET PO PRN (09:24)
[2020-03-07] MEDS: FAMOTIDINE 20MG TABLET PO SCH (20:34)
[2020-03-07] MEDS: ATORVASTATIN CALCIUM 10MG TABLET PO SCH (20:34)
[2020-03-07] MEDS: DEXTROSE 50% WATER 50ML SYRINGE IV PRN (23:38)
[2020-03-08] VITALS (99 sets, daily range): BP systolic 72–158; BP diastolic 19–87
[2020-03-08] MEDS: IPRATROPIUM/ALBUTEROL 0.5-3(2.5)MG/3ML NEB HHN SCH ×6 (00:23→20:21)
[2020-03-08] MEDS: BLOOD SUGAR DIAGNOSTIC STRIP TEST SCH ×4 (05:22→23:59)
[2020-03-08] MEDS: INSULIN LISPRO 100 UNITS/ML SUBCUT SCH ×4 (05:22→23:59)
[2020-03-08 05:38] LABS: HEMATOCRIT. 29.7 % (36.0-48.0); HEMOGLOBIN. 9.5 g/dL (12.0-16.0); MEAN CORPUSCULAR HEMOGLOBIN 30.1 pg (28.0-32.0); MEAN PLATELET VOLUME 9.6 fl (7.4-10.4); PLATELET 89 x1000/uL (130-400); RED BLOOD CELL COUNT 3.16 mill/uL (4.2-5.4)
[2020-03-08 05:47] LABS: PHOSPHORUS 3.9 mg/dL (2.5-4.9)
[2020-03-08 08:18] LABS: PLATELET ESTIMATE DECREASED
[2020-03-08] MEDS: AMMONIUM LACTATE 12% LOTION 240ML TOP SCH ×2 (09:44→21:22)
[2020-03-08] MEDS: ASCORBIC ACID 500 MG TABLET PO SCH ×2 (09:44→21:22)
[2020-03-08] MEDS: ZINC SULFATE 220 MG ( 50 ) CAPSULE PO SCH (09:44)
[2020-03-08] MEDS: CALCIUM ACETATE 667MG CAPSULE PO SCH ×3 (09:44→17:41)
[2020-03-08] MEDS: MIDODRINE HCL 5MG TABLET PO SCH ×2 (13:18→17:40)
[2020-03-08] MEDS: NOREPINEPHRINE 8 MG in DEXT 5% WATER 242 ML IV PRN (19:36)
[2020-03-08] MEDS: EPOETIN ALFA-EPBX 4,000 UNIT/ML VIAL SUBCUT SCH (21:22)
[2020-03-08] MEDS: FAMOTIDINE 20MG TABLET PO SCH (21:22)
[2020-03-08] MEDS: ATORVASTATIN CALCIUM 10MG TABLET PO SCH (21:22)
[2020-03-09] VITALS (94 sets, daily range): BP systolic 82–152; BP diastolic 18–78
[2020-03-09] MEDS: IPRATROPIUM/ALBUTEROL 0.5-3(2.5)MG/3ML NEB HHN SCH ×6 (00:01→20:16)
[2020-03-09] MEDS: BLOOD SUGAR DIAGNOSTIC STRIP TEST SCH ×3 (05:32→18:54)
[2020-03-09] MEDS: INSULIN LISPRO 100 UNITS/ML SUBCUT SCH ×3 (05:32→18:00)
[2020-03-09 06:32] LABS: CHLORIDE 103 mEq/L (98-107)
[2020-03-09 06:44] LABS: PHOSPHORUS 2.4 mg/dL (2.5-4.9)
[2020-03-09 07:11] LABS: HEMATOCRIT. 25.4 % (36.0-48.0); HEMOGLOBIN. 8.2 g/dL (12.0-16.0); MEAN CORPUSCULAR HEMOGLOBIN 30.2 pg (28.0-32.0); MEAN CORPUSCULAR VOLUME 93.7 fL (81.0-99.0); MEAN PLATELET VOLUME 10.8 fl (7.4-10.4); PLATELET 101 x1000/uL (130-400); RED BLOOD CELL COUNT 2.71 mill/uL (4.2-5.4); RED CELL DISTRIBUTION WIDTH 17.4 % (11.6-14.6)
[2020-03-09] MEDS: MIDODRINE HCL 5MG TABLET PO SCH ×3 (08:39→17:31)
[2020-03-09] MEDS: ASCORBIC ACID 500 MG TABLET PO SCH ×2 (08:40→21:18)
[2020-03-09] MEDS: ZINC SULFATE 220 MG ( 50 ) CAPSULE PO SCH (08:40)
[2020-03-09] MEDS: AMMONIUM LACTATE 12% LOTION 240ML TOP SCH ×2 (08:40→21:18)
[2020-03-09] MEDS: CALCIUM ACETATE 667MG CAPSULE PO SCH ×3 (08:40→17:31)
[2020-03-09 10:45] LABS: PLATELET ESTIMATE DECREASED
[2020-03-09] MEDS ORDERED: POTASSIUM CHLORIDE INJ 40 MEQ in DEXT 5% WATER 250 ML IV SCH (11:00)
[2020-03-09] MEDS: ATORVASTATIN CALCIUM 10MG TABLET PO SCH (21:18)
[2020-03-09] MEDS: FAMOTIDINE 20MG TABLET PO SCH (21:18)
[2020-03-10] VITALS (65 sets, daily range): BP systolic 81–152; BP diastolic 27–59
[2020-03-10] MEDS: BLOOD SUGAR DIAGNOSTIC STRIP TEST SCH ×4 (00:28→17:33)
[2020-03-10] MEDS: INSULIN LISPRO 100 UNITS/ML SUBCUT SCH ×4 (00:29→17:34)
[2020-03-10] MEDS: IPRATROPIUM/ALBUTEROL 0.5-3(2.5)MG/3ML NEB HHN SCH ×6 (00:29→20:28)
[2020-03-10 06:06] LABS: HEMATOCRIT. 26.6 % (36.0-48.0); HEMOGLOBIN. 8.8 g/dL (12.0-16.0); MEAN CORPUSCULAR HEMOGLOBIN 31.3 pg (28.0-32.0); MEAN CORPUSCULAR VOLUME 94.7 fL (81.0-99.0); MEAN PLATELET VOLUME 10.5 fl (7.4-10.4); PLATELET 96 x1000/uL (130-400); RED BLOOD CELL COUNT 2.81 mill/uL (4.2-5.4)
[2020-03-10 07:57] LABS: PLATELET ESTIMATE DECREASED
[2020-03-10] MEDS: CALCIUM ACETATE 667MG CAPSULE PO SCH ×3 (08:55→17:36)
[2020-03-10] MEDS: ASCORBIC ACID 500 MG TABLET PO SCH ×2 (08:55→20:47)
[2020-03-10] MEDS: ZINC SULFATE 220 MG ( 50 ) CAPSULE PO SCH (08:56)
[2020-03-10] MEDS: MIDODRINE HCL 5MG TABLET PO SCH ×3 (08:56→17:36)
[2020-03-10] MEDS: AMMONIUM LACTATE 12% LOTION 240ML TOP SCH ×2 (08:57→21:10)
[2020-03-10] MEDS ORDERED: MIDODRINE HCL 5MG TABLET PO SCH (09:00)
[2020-03-10] MEDS: FAMOTIDINE 20MG TABLET PO SCH (20:47)
[2020-03-10] MEDS: ATORVASTATIN CALCIUM 10MG TABLET PO SCH (20:47)
[2020-03-10] MEDS: EPOETIN ALFA-EPBX 4,000 UNIT/ML VIAL SUBCUT SCH (21:09)
[2020-03-11] VITALS (32 sets, daily range): BP systolic 19–146; BP diastolic 29–56
[2020-03-11] MEDS: IPRATROPIUM/ALBUTEROL 0.5-3(2.5)MG/3ML NEB HHN SCH ×5 (00:07→15:26)
[2020-03-11] MEDS ORDERED: ALTEPLASE 2MG/VIAL ITC SCH (01:00)
[2020-03-11] MEDS: INSULIN LISPRO 100 UNITS/ML SUBCUT SCH ×4 (01:26→18:00)
[2020-03-11 05:40] LABS: HEMATOCRIT. 25.2 % (36.0-48.0); HEMOGLOBIN. 8.1 g/dL (12.0-16.0); MEAN CORPUSCULAR HEMOGLOBIN 30.5 pg (28.0-32.0); MEAN CORPUSCULAR VOLUME 94.5 fL (81.0-99.0); MEAN PLATELET VOLUME 9.9 fl (7.4-10.4); PLATELET 209 x1000/uL (130-400); RED BLOOD CELL COUNT 2.66 mill/uL (4.2-5.4); RED CELL DISTRIBUTION WIDTH 17.6 % (11.6-14.6)
[2020-03-11 05:45] LABS: INR 1.1; PARTIAL THROMBOPLASTIN TIME 32.1 sec (23.4-31.0)
[2020-03-11] MEDS: BLOOD SUGAR DIAGNOSTIC STRIP TEST SCH ×4 (06:00→17:37)
[2020-03-11] MEDS: CALCIUM ACETATE 667MG CAPSULE PO SCH ×3 (08:20→17:36)
[2020-03-11 08:41] LABS: PLATELET ESTIMATE NORMAL
[2020-03-11] MEDS: ASCORBIC ACID 500 MG TABLET PO SCH ×2 (09:00→20:52)
[2020-03-11] MEDS: ZINC SULFATE 220 MG ( 50 ) CAPSULE PO SCH (09:00)
[2020-03-11] MEDS: MIDODRINE HCL 5MG TABLET PO SCH ×3 (09:00→17:37)
[2020-03-11] MEDS ORDERED: SODIUM BICARBONATE 4% (2.4MEQ) 5ML VIAL IV ONE (10:55)
[2020-03-11] MEDS ORDERED: LIDOCAINE HCL 1% 20ML VIAL (Pyxis) INJ ONE (10:55)
[2020-03-11] MEDS ORDERED: CEFAZOLIN 1000MG PREMIX 50 ML IV ONE (10:57)
[2020-03-11] MEDS ORDERED: FENTANYL CITRATE/PF 50MCG/ML 2ML VIAL ONE (10:58)
[2020-03-11] MEDS: FAMOTIDINE 20MG TABLET PO SCH (20:52)
[2020-03-11] MEDS: ATORVASTATIN CALCIUM 10MG TABLET PO SCH (20:52)
== END 2020-03-11 22:53 | DRG 3 ==
LOC: ER 10:44 → EDBEDREQTM 12:36 → EDBEDREQ 12:36 → MICUSO 14:03 → EDBEDREQ 14:10 → EDBEDREQTM 14:10 → ENRESERV 16:11 → CANBEDREQ 20:07 → 6WST 02-13 19:09 → CVICU 02-23 17:15 → 6WST 02-23 17:15 → 6EST 03-02 18:00 → CVICU 03-02 18:00 → 5EST 03-11 09:48
PROVIDERS: ADMIT Internal Medicine; ATTEND Internal Medicine
PROC: 02HV33Z Insertion of Infusion Device into Superior Vena Cava, Percutaneous Approach (ICD-10-PCS; 2020-02-12)
PROC: B548ZZA Ultrasonography of Superior Vena Cava, Guidance (ICD-10-PCS; 2020-02-12)
PROC: 02HV33Z Insertion of Infusion Device into Superior Vena Cava, Percutaneous Approach (ICD-10-PCS; 2020-02-21)
PROC: B5181ZA Fluoroscopy of Superior Vena Cava using Low Osmolar Contrast, Guidance (ICD-10-PCS; 2020-02-21)
PROC: 05HY33Z Insertion of Infusion Device into Upper Vein, Percutaneous Approach (ICD-10-PCS; 2020-02-24)
PROC: B54MZZA Ultrasonography of Right Upper Extremity Veins, Guidance (ICD-10-PCS; 2020-02-24)
PROC: 02PY33Z Removal of Infusion Device from Great Vessel, Percutaneous Approach (ICD-10-PCS; 2020-02-24)
PROC: 30233N1 Transfusion of Nonautologous Red Blood Cells into Peripheral Vein, Percutaneous Approach (ICD-10-PCS; 2020-02-25)
PROC: 5A1D70Z Performance of Urinary Filtration, Intermittent, Less than 6 Hours Per Day (ICD-10-PCS; 2020-03-01)
PROC: 02HV33Z Insertion of Infusion Device into Superior Vena Cava, Percutaneous Approach (ICD-10-PCS; 2020-03-02)
PROC: B548ZZA Ultrasonography of Superior Vena Cava, Guidance (ICD-10-PCS; 2020-03-02)
PROC: 5A1D70Z Performance of Urinary Filtration, Intermittent, Less than 6 Hours Per Day (ICD-10-PCS; 2020-03-02)
PROC: 5A1955Z Respiratory Ventilation, Greater than 96 Consecutive Hours (ICD-10-PCS; principal; 2020-03-04)
PROC: 0B110F4 Bypass Trachea to Cutaneous with Tracheostomy Device, Open Approach (ICD-10-PCS; 2020-03-04)
PROC: 0GBJ0ZZ Excision of Thyroid Gland Isthmus, Open Approach (ICD-10-PCS; 2020-03-04)
PROC: 0BH18EZ Insertion of Endotracheal Airway into Trachea, Via Natural or Artificial Opening Endoscopic (ICD-10-PCS; 2020-03-04)
PROC: 5A1D70Z Performance of Urinary Filtration, Intermittent, Less than 6 Hours Per Day (ICD-10-PCS; 2020-03-05)
PROC: 5A1D70Z Performance of Urinary Filtration, Intermittent, Less than 6 Hours Per Day (ICD-10-PCS; 2020-03-07)
PROC: 5A1D70Z Performance of Urinary Filtration, Intermittent, Less than 6 Hours Per Day (ICD-10-PCS; 2020-03-09)
PROC: 0JH63XZ Insertion of Tunneled Vascular Access Device into Chest Subcutaneous Tissue and Fascia, Percutaneous Approach (ICD-10-PCS; 2020-03-11)
PROC: 02HV33Z Insertion of Infusion Device into Superior Vena Cava, Percutaneous Approach (ICD-10-PCS; 2020-03-11)
PROC: B5181ZA Fluoroscopy of Superior Vena Cava using Low Osmolar Contrast, Guidance (ICD-10-PCS; 2020-03-11)
PROC: 02PY33Z Removal of Infusion Device from Great Vessel, Percutaneous Approach (ICD-10-PCS; 2020-03-11)
PROC: 02HV33Z Insertion of Infusion Device into Superior Vena Cava, Percutaneous Approach (ICD-10-PCS; 2020-03-11)
PROC: B5181ZA Fluoroscopy of Superior Vena Cava using Low Osmolar Contrast, Guidance (ICD-10-PCS; 2020-03-11)
PROC: B548ZZA Ultrasonography of Superior Vena Cava, Guidance (ICD-10-PCS; 2020-03-11)
DX: A41.51 Sepsis due to Escherichia coli [E. coli] (principal); E43 Unspecified severe protein-calorie malnutrition; N17.0 Acute kidney failure with tubular necrosis; G92 Toxic encephalopathy; I21.4 Non-ST elevation (NSTEMI) myocardial infarction; J69.0 Pneumonitis due to inhalation of food and vomit; J96.21 Acute and chronic respiratory failure with hypoxia; R65.21 Severe sepsis with septic shock; I50.22 Chronic systolic (congestive) heart failure; I69.351 Hemiplegia and hemiparesis following cerebral infarction affecting right dominant side; J44.0 Chronic obstructive pulmonary disease with (acute) lower respiratory infection; E87.0 Hyperosmolality and hypernatremia; E87.1 Hypo-osmolality and hyponatremia; E87.2 Acidosis; I13.2 Hypertensive heart and chronic kidney disease with heart failure and with stage 5 chronic kidney disease, or end stage renal disease; I42.9 Cardiomyopathy, unspecified; I47.2 Ventricular tachycardia; K94.23 Gastrostomy malfunction; N13.30 Unspecified hydronephrosis; N18.5 Chronic kidney disease, stage 5; Z16.12 Extended spectrum beta lactamase (ESBL) resistance; Z99.11 Dependence on respirator [ventilator] status; N39.0 Urinary tract infection, site not specified; E11.22 Type 2 diabetes mellitus with diabetic chronic kidney disease; F03.90 Unspecified dementia, unspecified severity, without behavioral disturbance, psychotic disturbance, mood disturbance, and anxiety; D63.8 Anemia in other chronic diseases classified elsewhere; R47.02 Dysphasia; Y95 Nosocomial condition; B96.1 Klebsiella pneumoniae [K. pneumoniae] as the cause of diseases classified elsewhere; D50.9 Iron deficiency anemia, unspecified; D69.6 Thrombocytopenia, unspecified; D72.10 Eosinophilia, unspecified; E11.51 Type 2 diabetes mellitus with diabetic peripheral angiopathy without gangrene; E11.649 Type 2 diabetes mellitus with hypoglycemia without coma; E11.65 Type 2 diabetes mellitus with hyperglycemia; E78.00 Pure hypercholesterolemia, unspecified; E78.5 Hyperlipidemia, unspecified; E83.39 Other disorders of phosphorus metabolism; E83.52 Hypercalcemia; E86.1 Hypovolemia; E87.5 Hyperkalemia; E87.6 Hypokalemia; I49.5 Sick sinus syndrome; I95.3 Hypotension of hemodialysis; L85.3 Xerosis cutis; M19.90 Unspecified osteoarthritis, unspecified site; R50.82 Postprocedural fever; S91.301A Unspecified open wound, right foot, initial encounter; S91.302A Unspecified open wound, left foot, initial encounter; Z20.828 Contact with and (suspected) exposure to other viral communicable diseases; X58.XXXA Exposure to other specified factors, initial encounter; Z88.1 Allergy status to other antibiotic agents; Z88.2 Allergy status to sulfonamides; Z88.8 Allergy status to other drugs, medicaments and biological substances; Z68.20 Body mass index [BMI] 20.0-20.9, adult; Z79.02 Long term (current) use of antithrombotics/antiplatelets; Z79.4 Long term (current) use of insulin; Z86.19 Personal history of other infectious and parasitic diseases; Z87.440 Personal history of urinary (tract) infections; Z87.442 Personal history of urinary calculi; Z99.2 Dependence on renal dialysis; Y93.89 Activity, other specified; Y92.89 Other specified places as the place of occurrence of the external cause; Y99.8 Other external cause status; Z79.899 Other long term (current) drug therapy; B95.1 Streptococcus, group B, as the cause of diseases classified elsewhere
CPT/HCPCS: 31500; 36415; 36558; 36573; 36589; 36600; 71045; 74018; 74176; 76700; 76770; 76937; 77001; 80048; 80053; 80202; 81003; 82043; 82375; 82550; 82553; 82570; 82728; 82784; 82805; 82962; 83010; 83036; 83520; 83540; 83550; 83605; 83615; 83735; 83880; 84100; 84134; 84145; 84156; 84300; 84439; 84443; 84478; 84484; 85025; 85027; 85384; 85651; 86038; 86140; 86256; 86334; 86850; 86880; 86900; 86920; 87070; 87077; 87186; 87426; 87635; 93005; 93306; 93308; 93970; 94003; 94640; 99291; A6261; C1725; C1750; C1752; C1769; C1892; C1893; J0278; J0690; J0885; J1265; J1630; J1642; J1650; J1815; J1885; J2060; J2185; J2248; J2250; J2543; J2704; J2765; J2997; J3010; J3370; J3480; J3490; J7030; J7040; J7042; J7050; J7060; J7070; J7608; P9016; P9047; Q0163; Q9963; U0003; A4315

== ENCOUNTER → 2020-11-23 | Day surgery (SDC) | payer MEDICARE, MEDICAID ==
[~2020-11-23] VITALS: Ht 172.7 cm; Wt 61.2 kg
[2020-11-23] VITALS (17 sets, daily range): BP systolic 133–161; BP diastolic 57–70
[~2020-11-23] MED LIST changes: -ACET650T37 GT; -AMIN30LI2 PO; -ASCO-316 PO; -ATOR10TA69 NG; -COLC0.6C3 PO; -CYAN1TAB43 PO; -FAMO20TA8 GT; -FE300LUD GT; +FENTANYL CITRATE/PF 50MCG/ML 2ML VIAL IV NR; +FENTANYL CITRATE/PF 50MCG/ML 2ML VIAL IV ONE; +FENTANYL CITRATE/PF 50MCG/ML 2ML VIAL ONE; +LIDOCAINE HCL 1% 20ML VIAL (Pyxis) INJ ONE; -METF-416 MT; -OMEP20TA2 PO; -VITA400T9 MT
[2020-11-25 08:11] VITALS: BP 133/64
== END | disposition home or self-care (01) ==
LOC: ANGIO 09:00
PROVIDERS: ATTEND Anesthesiology
DX: I12.0 Hypertensive chronic kidney disease with stage 5 chronic kidney disease or end stage renal disease (principal); N18.6 End stage renal disease; J44.9 Chronic obstructive pulmonary disease, unspecified; Z86.73 Personal history of transient ischemic attack (TIA), and cerebral infarction without residual deficits; Z79.899 Other long term (current) drug therapy; Z88.2 Allergy status to sulfonamides; Z88.8 Allergy status to other drugs, medicaments and biological substances; Z98.890 Other specified postprocedural states
CPT/HCPCS: 36558; 36573; 36589; C1725; C1750; C1769; C1887; J1642; J3010; J3490; 76937; 77001; 99152; 99153; G0500